=== PATIENT | male | born 1935 | race Caucasian/White ===

== ENCOUNTER → 2018-11-30 08:23 | Outpatient (CLI) | payer MEDICARE, BC, SELFPAY ==
[2018-11-30 08:41] LABS: Blood Urea Nitrogen 9 mg/dL (7-18); Creatinine,Serum 0.85 mg/dL (0.70-1.30); Estimated Glomerular Filt Rate 86 ml/min (>60); GFR (African American) 104 ML/MIN (>60)
--- NOTE | 2018-11-30 08:41 | CT_ITS ---
CT abdomen wo/w con CLINICAL INDICATION: ITS.REASON: ABD PAIN, URINE DISCOLORATION, WGT LOSS ORDERING PHYSICIAN: Darrell Bishop MD PATIENT AGE: 83 years COMPARISON: None TECHNIQUE: Contrast Used:75ml Optiray 350 Oral Contrast: 450ml Redicat and no Axial images obtained with sagittal and coronal reformats. All CT scans at the facility use one or more dose reduction, viz: automated exposure control, ma/kV adjustment per patient size (including targeted exams where dose is matched to indication, i.e. head), or iterative reconstruction technique. FINDINGS: Calcified granulomas present in the right middle lobe. There is a noncalcified nodule in the right lower lobe posteriorly at 7 mm. Chronic changes are present in the lung bases. The liver, spleen, adrenal glands, pancreas, and right kidney has an unremarkable appearance. There is a nonobstructing 4 mm stone in the lower pole the left kidney. Isodense lesion lower pole left kidney at 18 mm consistent with renal cysts. No ureteral calculi. Moderate amount retained colonic feces. No intestinal obstruction or free air. The pelvis is not included in the exam. Degenerative changes are present in the lower thoracic and lumbar spine with prominent osteophytes. 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 CT angiogram suggested for confirmation. IMPRESSION: 1. 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 Suggest CT angiography for further evaluation. Upper 2. Left nephrolithiasis with left renal cyst. 3. 7 mm noncalcified nodule right lower lobe. Suggest 6 month follow-up
== END ==
PROVIDERS: Visit Provider Family Medicine
DX: R10.9 Unspecified abdominal pain (principal); R39.89 Other symptoms and signs involving the genitourinary system; R63.4 Abnormal weight loss
CPT/HCPCS: 36415; 74170; 82565; 84520; Q9967

== ENCOUNTER → 2018-12-13 07:56 | Outpatient (CLI) | payer MEDICARE, BC, SELFPAY ==
[2018-12-13 08:22] LABS: Blood Urea Nitrogen 16 mg/dL (7-18); Creatinine,Serum 0.92 mg/dL (0.70-1.30); Estimated Glomerular Filt Rate 79 ml/min (>60); GFR (African American) 95 ML/MIN (>60)
--- NOTE | 2018-12-13 08:25 | CT_ITS ---
CT angio abdomen CLINICAL INDICATION: Abdominal pain and weight loss, abnormal CT of abdomen follow-up ITS.REASON: MESENTERIC ARTERY STENOSIS ORDERING PHYSICIAN: Darrell Bishop MD PATIENT AGE: 83 years COMPARISON: 11/30/2018 TECHNIQUE: Contrast Used:100ml Optiray 350 Oral Contrast: Axial images obtained with sagittal and coronal reformats. All CT scans at the facility use one or more dose reduction, viz: automated exposure control, ma/kV adjustment per patient size (including targeted exams where dose is matched to indication, i.e. head), or iterative reconstruction technique. FINDINGS: Atheromatous changes involving the abdominal aorta and its branches. There is calcific plaque at the ostium of the celiac arteryCausing approximately 35% stenosis. In addition, there is a high-grade short segment stenosis involving the proximal aspect of the superior mesenteric artery of approximately 70%. No evidence of abdominal aortic aneurysm, aortic stenosis, or common iliac stenosis. There is plaque at the ostium of the right renal artery but no significant stenosis. Left renal artery has an unremarkable appearance. Left renal cyst once again noted. There are degenerative changes in the lumbar spine. IMPRESSION: 1. 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 2. 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
== END ==
PROVIDERS: Visit Provider Family Medicine
DX: K55.1 Chronic vascular disorders of intestine (principal)
CPT/HCPCS: 36415; 74175; 82565; 84520; Q9967

== ENCOUNTER 2019-01-02 09:44 | Observation (INO) ==
[2019-01-02 10:28] LABS: Basophils # 0.1 K/mm3 (0-0.2); Eosinophils # 0.2 K/mm3 (0.0-0.4); Eosinophils % 4.5 % (0.1-12.0); Hematocrit 35.4 % (42.0-52.0); Hemoglobin 11.6 g/dL (14.1-18.0); Lymphocytes # 1.8 K/mm3 (0.7-4.5); Lymphocytes % 36.4 % (10-50); Mean Corpuscular HGB Conc 32.7 g/dL (31.8-35.4); Mean Corpuscular Volume 101.4 fl (80-94); Mean Platelet Volume 8.4 fl (7.4-10.4); Monocytes # 0.6 K/mm3 (0.1-1.0); Monocytes % 11.5 % (1.7-9.3); Neutrophils # 2.3 K/mm3 (1.8-7.8); Neutrophils % 46.7 % (37.0-80.0); Platelet Count 218 K/mm3 (142-424); Red Blood Count 3.49 M/mm3 (4.60-6.20); Red Cell Distribution Width 13.6 % (11.5-17.5)
--- NOTE | 2019-01-02 10:29 | Emergency Department Note ---
ED Disposition Clinical Impression: Mental status change resolved Disposition: Home, Self-Care Condition on Discharge: Good Instructions: DI for Altered Mental Status Additional Instructions: you will be called daysi regarding time of ECHO and Carotid dopplers. No cardiac event seen today on testing. Referrals: Darrell Bishop MD [Primary Care Provider] - Time of Disposition: 11:54 - Critical Care Critical Care Time: No Attestation: On 01/02/19, the high probability of a clinically significant, sudden or life threatening deterioration of the following system(s) required my full and direct attention, intervention and personal management. The time I documented below is in addition to time spent performing reported procedures but includes the following listed in this critical care notation. Medical Decision Making - Medical Records Medical records reviewed: Yes: I reviewed the patient's medical records. - Augie Inquiry Pt receiving controlled substance: No Augie was queried for this patient: No Vital Signs: 01/02/19 09:50 01/02/19 10:15 01/02/19 10:43 Temperature 97.6 F Temperature Source Oral Pulse Rate [Right Radial] 60 52 L 58 L Respiratory Rate 20 18 18 Blood Pressure [Right Arm] 131/61 150/82 H 143/85 H Blood Pressure Mean [Right Arm] 84 104 104 Blood Pressure Source [Right Arm] Automatic Cuff Automatic Cuff Automatic Cuff Blood Pressure Position [Right Arm] Sitting Sitting Sitting 02 Sat by Pulse Oximetry 99 98 97 Oxygen Delivery Method Room Air Room Air Room Air 01/02/19 11:00 01/02/19 11:24 Temperature Temperature Source Pulse Rate [Right Radial] 50 L 50 L Respiratory Rate 16 Blood Pressure [Right Arm] 139/56 L 139/56 L Blood Pressure Mean [Right Arm] 83 83 Blood Pressure Source [Right Arm] Automatic Cuff Automatic Cuff Blood Pressure Position [Right Arm] Sitting Sitting 02 Sat by Pulse Oximetry 96 97 Oxygen Delivery Method Room Air Room Air - Lab Data Lab results reviewed: Yes: I reviewed the patient's lab results. Lab Results 01/02/19 10:10: WBC 5.0, RBC 3.49 L, Hgb 11.6 L, Hct 35.4 L, MCV 101.4 H, MCH 33.1 H, MCHC 32.7, RDW 13.6, Plt Count 218, MPV 8.4, Neut % (Auto) 46.7, Lymph % (Auto) 36.4, [place] % (Auto) 11.5 H, Eos % (Auto) 4.5, Baso % (Auto) 1.0, Neut # (Auto) 2.3, Lymph # (Auto) 1.8, [place] # (Auto) 0.6, Eos # (Auto) 0.2, Baso # (Auto) 0.1 01/02/19 10:10: Sodium 140, Potassium 4.1, Chloride 105, Carbon Dioxide 27, Anion Gap 12.1, BUN 14, Creatinine 0.92, Estimated Creat Clear 53, Estimated GFR 79, Est GFR ( Amer) 95, Glucose 95, Calcium 9.4, Total Bilirubin 0.7, AST 18, ALT 29, Alkaline Phosphatase 70, Troponin I < 0.02, Total Protein 6.7, Albumin 3.4, Globulin 3.3 H, Albumin/Globulin Ratio 1.0 L Result diagrams: 01/02/19 10:10 01/02/19 10:10 - CT Data CT Scan: Head Time Received: 10:[address] Reviewed: Yes: I have viewed the radiologist's interpretation Preliminary Findings: Normal/NAD - ECG Data Tracing #1 ECG initial impression date: 01/02/19 ECG initial impression time: 09:55 ECG normal with no acute: arrhythmias, ischemia, conduction abnormalities, chamber hypertrophy Normal Sinus Rhythm: Yes - Physician Consults Physician Consulted: Marcello Time: 11:51 Reason -: Pt condition Comment/Response: patient has recovered, informed Dr. Armendariz. Will get outpatient carotid dopplers and ECHO daysi, results to Marcello/Dario Medical Decision Narrative: score zero-stroke General Adult HPI - General Chief complaint: Weakness Stated complaint: head pain,dizzy Time Seen by Provider: 01/02/19 10:26 Mode of Arrival: Wheelchair Source of Information: Patient, Spouse, Relative Limitations: No Limitations Description of Symptoms (Recalled from ER Triage Doc. by RN): Pt c/o feeling generally weak all over and states his head "doesnt feel right" pt reports he woke up feeling like this today. Pt reports he woke up approx 0300 today to go to the bathroom and he felt off balance and caught himself on the wall. Pt d enies dizziness, denies pain. - History of Present Illness HPI narrative: woke up not feeling well. Feel 'different in the head". No true headache. No chest pain No focal deficit here but states when he got out of bed he had to steady himself on the wall to ambulate. Patient is a cardiology patient of Dr. Natanael Richard in [place]. Has ?2 stents, says one is to LAD. Less than five years ago, approx 2.5 - Related Data Home Medications Medication Instructions Recorded Confirmed Apixaban [Eliquis 2.5mg tab] 2.5 mg PO BID 01/02/19 01/02/19 Atorvastatin Calcium [Atorvastatin 20 mg PO HS 01/02/19 01/02/19 20mg Tab] Carvedilol [Carvedilol 6.25mg Tab] 6.25 mg PO BID 01/02/19 01/02/19 Clopidogrel Bisulfate [Plavix 75mg 75 mg PO DAILY 01/02/19 01/02/19 Tab] Levothyroxine Sodium 75 mcg PO DAILY 01/02/19 01/02/19 [Levothyroxine 75mcg (0.075mg) Tab] Nitroglycerin [Nitrostat 0.4mg SL 0.4 mg SL NEEDED PRN 01/02/19 01/02/19 Tablet] Omeprazole [Omeprazole 40mg 40 mg PO DAILY 01/02/19 01/02/19 Capsule] Ropinirole HCl 1 mg PO HS 01/02/19 01/02/19 Trazodone HCl 50 mg PO HS 01/02/19 01/02/19 Allergies Allergy/AdvReac Type Severity Reaction Status Date / Time No Known Allergies Allergy Unverified 06/02/17 14:49 [facility] History - Hepatitis A Screen Drug use history?: No High risk sexual behaviors?: No History of sexually transmitted infection?: No Currently employed?: No Childcare worker?: No Do you have indoor plumbing?: Yes Do you have electricity?: Yes Attestation statement:: This patient has been screened for Hepatitis A risk factors. I have reviewed the patient's past medical history: Yes Medical History: Denies:: Diabetes Mellitus Type 1, Diabetes Mellitus Type 2 - Social History Alcohol Intake: never Occupational Status: other ROS Obtained: Yes All systems reviewed & no additional complaints - Constitutional Constitutional: Denies chills, Denies fever(s) - Eyes Eyes: Reports system reviewed and no additional complaints, except as docu - ENT Ears, Nose, Mouth, and Throat: Reports system reviewed and no additional complaints, except as docu, Denies headache(s) - Cardiovascular Cardiovascular: Denies chest pain at rest, Denies dyspnea, Denies dyspnea on exertion, Denies edema - Respiratory Respiratory: No dyspnea, No coughing up blood, No stridor - Gastrointestinal Gastrointestingal: Denies: abdominal pain - Genitourinary Female Genitourinary: Denies dysuria, Denies flank pain - Musculoskeletal Musculoskeletal: Reports muscle aches - Integumentary/Breasts Skin/Breast: Denies rash, Denies skin pain - Neurologic Neurologic: Reports abnormal gait, Denies confusion, Reports unsteadiness, Reports dizziness, Denies numbness, Denies seizure-like activity, Denies syncope, Reports other (resolved) - Hematologic/Lymphatic Henatologic/Lymphatic: Denies easy bleeding, Denies easy bruising - Allergic/Immunologic Allergic/Immunologic: Denies hives, Denies wheezing Physical Exam - General General appearance: alert, in no apparent distress - Head Head exam: atraumatic - Eye Eye exam: Present: normal appearance, PERRL, EOMI - ENT ENT exam: Present: normal exam, normal oropharynx, mucous membranes moist, TM's normal bilaterally, normal external ear exam - Neck Neck exam: Present: other (no carotid bruits) - Respiratory Respiratory exam: Present: normal lung sounds bilaterally. Absent: respiratory distress - Cardiovascular Cardiovascular exam: Present: regular rate, normal rhythm. Absent: JVD - Abdominal Exam Abdominal exam: Present: soft, normal bowel sounds. Absent: distention, tend erness, guarding - Extremities Exam Extremities exam: Present: normal inspection, full ROM, normal capillary refill. Absent: calf tenderness - Back Exam Back exam: Present: normal inspection. Absent: tenderness - Neurological Exam Neurological exam: Present: alert, oriented X3, CN II-XII intact. Absent: motor sensory deficit - Psychiatric Psychiatric exam: Present: normal affect, normal mood. Absent: agitated, anxious - Skin Skin exam: Present: warm, dry, intact - Lymphatic Lymphatic Findings: no adenopathy
[2019-01-02 10:40] LABS: Alanine Aminotransferase 29 U/L (12-78); Albumin Level 3.4 gm/dL (3.4-5.0); Alkaline Phosphatase 70 U/L (46-116); Anion Gap 12.1 mEq/L (5-15); Bilirubin,Total 0.7 mg/dL (0.2-1.0); Blood Urea Nitrogen 14 mg/dL (7-18); Calcium 9.4 mg/dL (8.5-10.1); Carbon Dioxide 27 mmol/L (21.0-32.0); Chloride 105 mmol/L (98-107); Globulin 3.3 gm/dl (1.3-3.2); Glucose 95 mg/dL (74-106); Sodium 140 mmol/L (136-145); Total Protein,Serum 6.7 gm/dL (6.4-8.2)
[2019-01-02 10:41] LABS: Aspartate Amino Transferase 18 U/L (15-37)
--- NOTE | 2019-01-02 14:57 | Pharmacy Consult Notes ---
[facility] Pharmacy VTE Monitoring - Patient Demographics Admission date: 01/02/19 Report Date: 01/02/19 Time: 14:57 Allergies/Adverse Reactions: Patient Allergies No Known Allergies Allergy (Unverified 06/02/17 14:49) Height: 1.78 m Weight: 65.544 kg Patient Problems: Current Active Problems (Updated 01/02/19 @ 12:24 by Natanael Leija MD) Mental status change resolved (Acute) Dizziness (Acute) Anemia (Acute) - VTE Risk Labs: VTE Related Lab Results Hgb 11.6 g/dL (14.1-18.0) L 01/02/19 10:10 Hct 35.4 % (42.0-52.0) L 01/02/19 10:10 Plt Count 218 K/mm3 (142-424) 01/02/19 10:10 BUN 14 mg/dL (7-18) 01/02/19 10:10 Creatinine 0.92 mg/dL (0.70-1.30) 01/02/19 10:10 Estimated Creat Clear 53 mL/min (50-200) 01/02/19 10:10 VTE Score: 2 VTE Risk Level: Very Low Risk - Prophylaxis Types of VTE Prophylaxis: Pharmacological (ELIQUIS BID DOSING ORDERED BY )
[2019-01-03 05:57] LABS: Basophils % 0.5 % (0.1-2.0); Eosinophils # 0.2 K/mm3 (0.0-0.4); Eosinophils % 5.8 % (0.1-12.0); Hematocrit 32.1 % (42.0-52.0); Lymphocytes # 1.6 K/mm3 (0.7-4.5); Lymphocytes % 39.9 % (10-50); Mean Corpuscular HGB Conc 31.9 g/dL (31.8-35.4); Mean Platelet Volume 9.3 fl (7.4-10.4); Monocytes # 0.4 K/mm3 (0.1-1.0); Monocytes % 9.2 % (1.7-9.3); Neutrophils # 1.8 K/mm3 (1.8-7.8); Neutrophils % 44.7 % (37.0-80.0); Platelet Count 188 K/mm3 (142-424); Red Blood Count 3.09 M/mm3 (4.60-6.20); Red Cell Distribution Width 13.7 % (11.5-17.5); White Blood Count 3.9 K/mm3 (4.8-10.8)
[2019-01-03 06:00] LABS: Hemoglobin 10.2 g/dL (14.1-18.0)
[2019-01-03 06:04] LABS: Calcium 8.5 mg/dL (8.5-10.1)
--- NOTE | 2019-01-03 07:08 | H&P/Discharge Summary ---
General - General Admission date:: 01/02/19 Discharge date: 01/03/19 *Admission Date: 01/02/19 *Chief complaint: "I do not feel right" *History of present illness: 83-year-old male with history of coronary artery disease presented to the emergency department yesterday morning after 2 episodes at home where he went to get out of bed and lost his balance and ran into the door facing to the bathroom. He admitted that his head "did not feel right" and he felt kind of tired and weak. He denies having any headache, but simply a funny feeling on the top of his head. When this feeling lasted for several hours he ultimately decided to come to the emergency department at the urging of his . In the ER patient had work-up which revealed nothing. EKG was unremarkable. Labs had no significantly new findings. Initial plan in the emergency department was going to be to discharge the patient home with outpatient follow-up and testing for echocardiogram and carotid Doppler. However patient's raise signi ficant concern about his level of weakness and decision was made to keep the patient overnight for further testing today. In the emergency department prior to admission orthostatics were checked and while the patient was not orthostatic going from a lying to a standing position the patient did appear wobbly on his feet. Patient was admitted and has had no further events. He has been out of bed. This morning he states he feels fine. [facility] History I have reviewed the patient's past medical history: Yes Medical History: Reports:: Coronary Artery Disease, Hypertension Denies:: Cancer, Diabetes Mellitus Type 1, Diabetes Mellitus Type 2, Internal Pacemaker, MRSA *Have you ever received a pneumonia vaccine?: Yes *Have you received a flu vaccine this season?: Yes Other Surgeries: Yes: Coronary Stent. No: Pacemaker Amputation: No Fractures: No - *Social History Educational Level: Attended High School Smoking Status: Never smoker Alcohol Intake: never *Occupational Status:: retired Housing: house Household Members: spouse *Travel in the last 8 weeks: None - Psychiatric History Expresses thoughts of harming self/others: None Suicide Plan Description: No Plan Family Hx:: No significant family history Review of Systems - Constitutional Denies body ache(s) - *Cardiovascular Denies chest pain, Denies chest pain at rest, Denies chest pain with activity - *Respiratory Denies change in phlegm color, Denies chest congestion, Denies cough - *Gastrointestinal Denies abdominal pain, Denies belching, Denies bloating - *Genitourinary Denies difficulty urinating - *Neurologic Reports abnormal walking, Reports unsteadiness, Reports dizziness, Reports other (resolved), Denies confusion, Denies headache(s), Denies numbness, Denies seizure-like activity, Denies fainting Exam Vital signs and Labs for Last 24 Hours: Temp Pulse Resp BP Pulse Ox 98.1 F 72 16 108/53 L 97 01/03/19 04:00 01/03/19 04:00 01/03/19 04:00 01/03/19 04:00 01/03/19 04:00 Laboratory Results - last 24 hr 01/02/19 10:10: WBC 5.0, RBC 3.49 L, Hgb 11.6 L, Hct 35.4 L, MCV 101.4 H, MCH 33.1 H, MCHC 32.7, RDW 13.6, Plt Count 218, MPV 8.4, Neut % (Auto) 46.7, Lymph % (Auto) 36.4, [place] % (Auto) 11.5 H, Eos % (Auto) 4.5, Baso % (Auto) 1.0, Neut # (Auto) 2.3, Lymph # (Auto) 1.8, [place] # (Auto) 0.6, Eos # (Auto) 0.2, Baso # (Auto) 0.1 01/02/19 10:10: Sodium 140, Potassium 4.1, Chloride 105, Carbon Dioxide 27, Anion Gap 12.1, BUN 14, Creatinine 0.92, Estimated Creat Clear 53, Estimated GFR 79, Est GFR ( Amer) 95, Glucose 95, Calcium 9.4, Total Bilirubin 0.7, AST 18, ALT 29, Alkaline Phosphatase 70, Troponin I < 0.02, Total Protein 6.7, Albumin 3.4, Globulin 3.3 H, Albumin/Globulin Ratio 1.0 L 01/03/19 05:26: WBC 3.9 L, RBC 3.09 L, Hgb 10.2 L D, Hct 32.1 L, MCV 104.0 H, MCH 33.1 H, MCHC 31.9, RDW 13.7, Plt Count 188, MPV 9.3, Neut % (Auto) 44.7, Lymph % (Auto) 39.9, [place] % (Auto) 9.2, Eos % (Auto) 5.8, Baso % (Auto) 0.5, Neut # (Auto) 1.8, Lymph # (Auto) 1.6, [place] # (Auto) 0.4, Eos # (Auto) 0.2, Baso # (Auto) 0.0 01/03/19 05:26: Sodium 143, Potassium 4.0, Chloride 111 H, Carbon Dioxide 27, Anion Gap 9.0, BUN 9 D, Creatinine 0.82, Estimated Creat Clear 53, Estimated GFR 90, Est GFR ( Amer) 109, Glucose 96, Calcium 8.5 I & O for Last 24 hours: Intake & Output 12/31/18 01/01/19 01/02/19 01/03/19 11:59 11:59 11:59 11:59 Intake Total 3686 / 3686 Output Total 1275 / 1275 Balance 2411 / 2411 Weight 145 lb 150 lb 5 oz - Constitutional no acute distress - *Routine HEENT Exam Head: Present: normocephalic Eye: Present: EOMI, PERRL ENT: Present: mucous membranes moist - *Routine Neck Exam Present: supple. Absent: JVD, carotid bruit - *Routine Respiratory Exam Present: CTA bilaterally - *Routine Cardiovascular Exam Present: RRR, Normal S1, Normal S2 - *Routine Abdominal Exam Present: soft - *Routine Extremities Exam Absent: cyanosis, clubbing, edema Hospital Course Hospital Course: Patient was admitted for observation. He did well on IV fluids of normal saline at 200 mL's per hour. On the morning of January 03 patient felt well. Patient underwent echocardiogram and carotid Doppler. At the time of this dictation the echocardiogram showed normal ejection fraction. Patient felt well. Once testing was completed patient was discharged to home. Patient does have a flame hardening machine setter in [place] and he is not believes it is about time for him to see his flame hardening machine setter. I did point out to the patient that his blood pressures had a wide range with some blood pressures showing systolics in the low 100s but others having systolics as high as 160. He will need to continue to monitor his blood pressure especially if he feels weak. I did explain to his that there were no significant findings here in the hospital to indicate why he had this spell of weakness. If he was dehydrated it did not reveal itself and his labs and by the time I saw the patient he was adequately hydrated after receiving fluids. Patient underwent bilateral carotid artery doppler and echocardiogram. Carotids showed stable disease of the Right ICA with progression of mild disease on the left. Echocardiogram showed normal ejection fraction with increased right ventricular pressure. Once testing was completed and patient was feeling well he was discharged home Results Labs on day of discharge: Labs from last 24 hours 01/03/19 01/03/19 01/02/19 05:26 05:26 10:10 WBC 3.9 L RBC 3.09 L Hgb 10.2 L D Hct 32.1 L MCV 104.0 H MCH 33.1 H MCHC 31.9 RDW 13.7 Plt Count 188 MPV 9.3 Neut % (Auto) 44.7 Lymph % (Auto) 39.9 [place] % (Auto) 9.2 Eos % (Auto) 5.8 Baso % (Auto) 0.5 Neut # (Auto) 1.8 Lymph # (Auto) 1.6 [place] # (Auto) 0.4 Eos # (Auto) 0.2 Baso # (Auto) 0.0 Sodium 143 140 Potassium 4.0 4.1 Chloride 111 H 105 Carbon Dioxide 27 27 Anion Gap 9.0 12.1 BUN 9 D 14 Creatinine 0.82 0.92 Estimated Creat Clear 53 53 Estimated GFR 90 79 Est GFR ( Amer) 109 95 Glucose 96 95 Calcium 8.5 9.4 Total Bilirubin 0.7 AST 18 ALT 29 Alkaline Phosphatase 70 Troponin I < 0.02 Total Protein 6.7 Albumin 3.4 Globulin 3.3 H Albumin/Globulin Ratio 1.0 L 01/02/19 10:10 WBC 5.0 RBC 3.49 L Hgb 11.6 L Hct 35.4 L MCV 101.4 H MCH 33.1 H MCHC 32.7 RDW 13.6 Plt Count 218 MPV 8.4 Neut % (Auto) 46.7 Lymph % (Auto) 36.4 [place] % (Auto) 11.5 H Eos % (Auto) 4.5 Baso % (Auto) 1.0 Neut # (Auto) 2.3 Lymph # (Auto) 1.8 [place] # (Auto) 0.6 Eos # (Auto) 0.2 Baso # (Auto) 0.1 Sodium Potassium Chloride Carbon Dioxide Anion Gap BUN Creatinine Estimated Creat Clear Estimated GFR Est GFR ( Amer) Glucose Calcium Total Bilirubin AST ALT Alkaline Phosphatase Troponin I Total Protein Albumin Globulin Albumin/Globulin Ratio DS: Diagnosis - Discharge Diagnosis (1) Weakness Status: Acute (2) Coronary artery disease Status: Acute Discharge Plan - Patient Discharge Instructions ACTIVITY: Continue current activity DIET: continue same diet Patient Instructions: DI for Orthostatic Hypotension, DI for Muscle Weakness, DI for Altered Mental Status - Follow up Plan Follow up with: Get Armendariz MD [Staff Physician] - 01/10/19 10:15 am Disposition: Home, Self-Usp Medications: Home Medications Medication Instructions Recorded Confirmed Type Apixaban [Eliquis 2.5mg tab] 2.5 mg PO BID 01/02/19 01/02/19 History Atorvastatin Calcium [Atorvastatin 20 mg PO HS 01/02/19 01/02/19 History 20mg Tab] Carvedilol [Carvedilol 6.25mg Tab] 6.25 mg PO BID 01/02/19 01/02/19 History Clopidogrel Bisulfate [Plavix 75mg 75 mg PO DAILY 01/02/19 01/02/19 History Tab] Levothyroxine Sodium 75 mcg PO DAILY 01/02/19 01/02/19 History [Levothyroxine 75mcg (0.075mg) Tab] Nitroglycerin [Nitrostat 0.4mg SL 0.4 mg SL NEEDED PRN 01/02/19 01/02/19 History Tablet] Omeprazole [Omeprazole 40mg 40 mg PO DAILY 01/02/19 01/02/19 History Capsule] Ropinirole HCl 1 mg PO HS 01/02/19 01/02/19 History Trazodone HCl 50 mg PO HS 01/02/19 01/02/19 History Prescriptions/Medication Reconciliation: Continued Levothyroxine Sodium [Levothyroxine 75mcg (0.075mg) Tab] 75 mcg PO DAILY Atorvastatin Calcium [Atorvastatin 20mg Tab] 20 mg PO HS Apixaban [Eliquis 2.5mg tab] 2.5 mg PO BID Omeprazole [Omeprazole 40mg Capsule] 40 mg PO DAILY Clopidogrel Bisulfate [Plavix 75mg Tab] 75 mg PO DAILY Ropinirole HCl 1 mg PO HS Nitroglycerin [Nitrostat 0.4mg SL Tablet] 0.4 mg SL NEEDED PRN PRN Reason: Chest Pain Carvedilol [Carvedilol 6.25mg Tab] 6.25 mg PO BID Trazodone HCl 50 mg PO HS
--- NOTE | 2019-01-03 09:03 | Carotid Imaging Report ---
"Cerebrovascular Exam Indications: 780.4 Dizziness and giddiness. IMPRESSIONS 1. The bilateral vertebral arteries are patent with normal antegrade flow. 2. 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 No change from the study of 21-Apr-2016. 3. Study suggests 20-49% stenosis involving the left internal carotid artery. Disease progression from the study of 21-Apr-2016. History: Coronary artery disease. Carotid duplex study. Complete study and Doppler flow study including spectral analysis, color and peralta scale imaging. Height: Height: 182.9cm. Height: 72in. Weight: Weight: 65.8kg. Weight: 144.7lb. Body mass index: BMI: 19.7kg/m^2. Body surface area: BSA: 1.82m^2. Location: Bedside. Patient status: Inpatient. Tables: Arterial flow: + +--------+--------+ |Location |V sys |V ed | + +--------+--------+ |Right CCA - proximal|76.4cm/s|11cm/s | + +--------+--------+ |Right CCA - distal |124cm/s |19cm/s | + +--------+--------+ |Right ECA |178cm/s |12cm/s | + +--------+--------+ |Right ICA - proximal|145cm/s |13.9cm/s| + +--------+--------+ |Right ICA - mid |166cm/s |30.6cm/s| + +--------+--------+ |Right ICA - distal |130cm/s |17.6cm/s| + +--------+--------+ |Right vertebral |72.3cm/s|10.2cm/s| + +--------+--------+ |Left CCA - proximal |106cm/s |17.6cm/s| + +--------+--------+ |Left CCA - distal |111cm/s |19.5cm/s| + +--------+--------+ |Left ECA |123cm/s |8.5cm/s | + +--------+--------+ |Left ICA - proximal |79.9cm/s|17cm/s | + +--------+--------+ |Left ICA - mid |88.4cm/s|19.1cm/s| + +--------+--------+ |Left ICA - distal |85.5cm/s|17cm/s | + +--------+--------+ |Left vertebral |49.5cm/s|10.4cm/s| + +--------+--------+ Velocity ratios: + + + + + + | |Right, V sys|Right, V ed|Left, V sys|Left, V ed| + + + + + + |Max ICA/dist CCA|1.34 |1.61 |0.8 |0.98 | + + + + + + (Report amended ) Electronically signed by: Daniel Gomez [id number]"
--- NOTE | 2019-01-03 20:48 | Cardiology Report ---
PROCEDURE: 2-D M-mode and color Doppler study INDICATIONS FOR THE TEST: Chest pain COPD Heart Murmur Tobacco Smoking Palpitations Fatigue Syncope Edema HypertensionXDiabetes Mellitus Rheumatic Fever SOB CHERRY Obesity Hyperlipidemia Family History HD Additional History MENTAL STATUS CHANGE,NEAR SYNCOPE,CAD APICAL VIEWS OFF AXIS PATIENT INFORMATION HEIGHT: 72 WEIGHT:145 GENDER: Male B/P:143/85 2-D/M-MODE INTERPRETATION: 2-D MEASUREMENTS OBSERVED VALUES IN CMS Right Ventricular Dimension (RVDd) 1.6 Interventricular Septum (Thickness)(IVsd) 1.0 Left Ventricular Internal Dimensions(LVIDd) 5.4 Left Ventricular Posterior Wall (Thickness)(LVPWd) .9 Aortic Root 3.4 Aortic Cusp Separation 1.8 Left Atrial Dimensions (LAD) 3.8 2D 1. Left atrium is mildly enlarged, left ventricle is normal size, mild concentric left ventricular hypertrophy, visually estimated ejection with no regional wall motion abnormality. Endocardial surfaces are poorly present. 2. The right atrium and right ventricle is mildly enlarged with normal contractility. 3. The aortic valve is minimally thickened and fibrosed. 4. The mitral and tricuspid valve are grossly normal. 5. The pulmonic valve is poorly visualized. 6. No significant pericardial effusion noted. DOPPLER INTERROGATION: Doppler interrogation is suboptimal, there is mild mitral and tricuspid regurgitation. Diastolic parameters are inconclusive. There is mild tricuspid regurgitation noted, calculated right ventricular systolic pressure is 51 mmHg consistent with moderate pulmonary hypertension. CONCLUSION: 1. Technically difficult study because of the patient's factor and poor acoustic windows 2. Normal left ventricular size, preserved left ventricular systolic function, visually estimated ejection fraction 55% with no regional wall motion abnormality. Diastolic parameters are suboptimal. 3. Mild mitral and tricuspid regurgitation, calculated right ventricular systolic pressure is 51 mmHg moderate pulmonary hypertension. 4. No significant pericardial effusion noted.
== END 2019-01-03 11:59 | disposition home or self-care (01) ==
LOC: ER 09:44 → 2ND 09:44
PROVIDERS: ADMIT Family Medicine; ATTEND Family Medicine
DX: Z79.899 Other long term (current) drug therapy; I25.10 Atherosclerotic heart disease of native coronary artery without angina pectoris; I10 Essential (primary) hypertension; R53.1 Weakness; R41.82 Altered mental status, unspecified
CPT/HCPCS: 36415; 70450; 71010; 71045; 80048; 80053; 84484; 85025; 93005; 93306; 93880; 99284; G0378

== ENCOUNTER → 2019-06-16 13:32 | Outpatient (CLI) | payer MEDICARE, BC, SELFPAY ==
--- NOTE | 2019-06-16 13:34 | CT_ITS ---
PROCEDURE: CT CHEST WO CON CLINICAL INDICATION: LUNG NODULE Follow-up lung nodule COMPARISON: ABDWW CT abdomen wo/w con from 11/30/[address] angio abdomen from 12/13/2018 TECHNIQUE: Axial images obtained with sagittal and coronal reformats. All CT scans at the facility use one or more dose reduction, viz: automated exposure control, ma/kV adjustment per patient size (including targeted exams where dose is matched to indication, i.e. head), or iterative reconstruction technique. FINDINGS: There are calcified nodes in the mediastinum. Coronary artery calcifications and/or stents are present. Normal heart size. Calcified granuloma is present in the right middle lobe. There are scattered fibrotic changes. Previously noted nodular opacity in the right lung base posterior medially is not apparent. There are fibrotic changes in this region. No suspicious pulmonary nodules are evident. No central obstructing lesion, consolidation, or mass or effusion. There are degenerative changes in the thoracic spine. IMPRESSION: No acute finding. No suspicious pulmonary nodules evident. Fibrotic changes are present in the right lung base posterior medially. Previously noted nodular opacity in this region is no longer apparent. Dictated by: Bentley John MD 06/17/2019 09:53 Electronically signed by Bentley John MD in [place] 06/17/2019 09:53
== END ==
PROVIDERS: PCP Family Medicine; Visit Provider Family Medicine
DX: R91.1 Solitary pulmonary nodule (principal)
CPT/HCPCS: 71250

== ENCOUNTER → 2019-09-23 13:19 | Outpatient (CLI) | payer MEDICARE, BC, SELFPAY ==
--- NOTE | 2019-09-23 13:21 | MR_ITS ---
PROCEDURE: MR CERVICAL SPINE WO CON CLINICAL INDICATION: MYELOPATHY, SPINAL STENOSIS Bilateral arm pain tingling numbness and shoulder pain with weakness COMPARISON: CTAN CTA-NECK from 04/22/2016 TECHNIQUE: Standard multiplanar multiecho sequences are performed without contrast. 3-D MIP and myelographic images are also rendered and reviewed FINDINGS: Exam is moderately limited due to mild motion artifact. The there is good alignment. The craniocervical junction has an unremarkable appearance. C2-C3: Mild bilateral foraminal narrowing from facet hypertrophy. There is mild bulging disc C3-C4: There is a broad based central disc protrusion with bulging disc with severe canal stenosis with canal measuring approximately 5-6 mm. There is marked impingement and compression upon the spinal cord with slight increased T2 signal involving the cord at the C4 level. C4-C5: Bulging disc with right-sided facet hypertrophic change with severe right and moderate to severe left foraminal narrowing. The bulging disc is slightly eccentric toward the right. C5-C6: Degenerate disc disease with bulging disc with a small right paracentral disc protrusion causing mild impingement upon the anterior aspect of the cord slightly toward the right. There is moderate bilateral foraminal narrowing. C6-C7: Degenerate disc disease with a broad based bulging disc along with facet hypertrophic change with canal stenosis of 8 mm with moderate bilateral foraminal narrowing. There is slight increased T2 signal of the cord at this level. There is mild impingement upon the anterior aspect of the cord from the bulging disc and mild posterior impingement from the facet and lamina hypertrophy. Type 2 endplate changes are present C7-T1: Mild anterolisthesis of C7. There is degenerative disc disease at T2-T3 and T3-T4 with bulging disc. IMPRESSION: 1. There is multilevel cervical spondylosis with multilevel canal stenosis. This is most severe at the C3-C4 level with severe canal stenosis and anterior and posterior impingement upon the cord with narrowing of the cord at this level and mild increased T2 signal of the cord. Please see above for detailed description at each level. Broad-based central disc protrusion with bulging disc is present at C3-C4. 2. C3-C4: There is a broad based central disc protrusion with bulging disc with severe canal stenosis with canal measuring approximately 5-6 mm. There is marked impingement and compression upon the spinal cord with slight increased T2 signal involving the cord at the C4 level. 3. C4-C5: Bulging disc with right-sided facet hypertrophic change with severe right and moderate to severe left foraminal narrowing. The bulging disc is slightly eccentric toward the right. 4. C5-C6: Degenerate disc disease with bulging disc with a small right paracentral disc protrusion causing mild impingement upon the anterior aspect of the cord slightly toward the right. There is moderate bilateral foraminal narrowing. 5. C6-C7: Degenerate disc disease with a broad based bulging disc along with facet hypertrophic change with canal stenosis of 8 mm with moderate bilateral foraminal narrowing. There is slight increased T2 signal of the cord at this level. There is mild impingement upon the anterior aspect of the cord from the bulging disc and mild posterior impingement from the facet and lamina hypertrophy. Type 2 endplate changes are present Dictated by: Bentley John MD 09/23/2019 16:35 Electronically signed by Bentley John MD in [place] 09/23/2019 16:35
== END ==
PROVIDERS: PCP Family Medicine; Visit Provider Family Medicine
DX: M48.02 Spinal stenosis, cervical region (principal); G99.2 Myelopathy in diseases classified elsewhere
CPT/HCPCS: 72141; 76376

== ENCOUNTER → 2021-01-17 15:53 | Outpatient (CLI) | payer MEDICARE, BC, SELFPAY ==
--- NOTE | 2021-01-17 16:01 | XR_ITS ---
PROCEDURE: XR CHEST 2V CLINICAL HISTORY: EDEMA,UNSPECIFIED TYPE COMPARISON: CR CXR1 CHEST-PORTABLE from 12/16/2014 CR CXR CHEST(2 VIEWS-NOT PORTABLE) from 04/21/2016 CR CXR1 CHEST-PORTABLE from 10/25/[address] CHEST WO CON from 06/16/2019 FINDINGS: The cardiomediastinal silhouette and pulmonary vascularity are within normal limits. Calcified granuloma is present in the right middle lobe. The mild atelectatic changes are present in the left lung base. Degenerative changes thoracic. Mild pectus excavatum IMPRESSION: Mild left basilar atelectasis Dictated by: Bentley John MD 01/17/2021 17:30 Bentley John MD in [place] 01/17/2021 17:30
[2021-01-17 19:12] LABS: Chloride 104 mmol/L (98-107); Potassium 4.1 mmoL/L (3.5-5.1); Sodium 139 mmol/L (136-145)
[2021-01-17 19:15] LABS: Alanine Aminotransferase 25 U/L (12-78); Albumin Level 4.1 g/dl (3.5-5.0); Albumin/Globulin Ratio 1.5 (1.1-1.8); Alkaline Phosphatase 84 U/L (38-126); Anion Gap 13.1 mEq/L (5-15); Aspartate Amino Transferase 36 U/L (17-59); Bilirubin,Total 0.7 mg/dl (0.2-1.3); Blood Urea Nitrogen 19 mg/dl (9-20); Calcium 9.2 mg/dl (8.4-10.2); Carbon Dioxide 26 mmol/L (22.0-30.0); Estimated Glomerular Filt Rate 71 ml/min (>60); GFR (African American) 86 ML/MIN (>60); Globulin 2.7 g/dL (1.3-3.2); Glucose 92 mg/dl (74-100); Total Protein,Serum 6.8 g/dl (6.3-8.2)
[2021-01-17 19:27] LABS: NT Pro Brain Natriuretic Pep. 264 pg/mL (0-450)
== END ==
PROVIDERS: PCP Family Medicine; Visit Provider Nurse Practitioner Family
DX: R60.9 Edema, unspecified (principal); R06.09 Other forms of dyspnea
CPT/HCPCS: 36415; 71046; 80053; 83880; 84439; 84443

== ENCOUNTER → 2021-04-17 12:03 | Outpatient (CLI) | payer MEDICARE, BC, SELFPAY | PROVIDERS: Visit Provider Internal Medicine Infectious Disease | DX: D72.18 Eosinophilia in diseases classified elsewhere (principal); T50.995A Adverse effect of other drugs, medicaments and biological substances, initial encounter; R19.7 Diarrhea, unspecified | CPT/HCPCS: 87177 ==

== ENCOUNTER → 2021-05-14 17:02 | Outpatient (CLI) | payer MEDICARE, BC, SELFPAY ==
--- NOTE | 2021-05-14 17:06 | MR_ITS ---
PROCEDURE INFORMATION: Exam: MR Head Without and With Contrast Exam date and time: 05/14/2021 5:06 PM Age: 85 years old Clinical indication: Pain; Headache; Additional info: CVA TECHNIQUE: Imaging protocol: MR of the head without and with intravenous contrast. Contrast material: ISOVUE; Contrast volume: 15 ml; Contrast route: IV; COMPARISON: CT HEAD/BRAIN WO CON 09/17/2019 1:16 PM FINDINGS: Age-related volume loss. Major vascular flow voids at the skull base are preserved. No extra-axial fluid collection. No hydrocephalus. No midline shift or intracranial mass effect. Mild nonspecific white matter gliosis, probable chronic microvascular ischemia. No cerebral edema. No diffusion restriction. No pathologic intracranial enhancement. Minimal paranasal sinus disease. Moderate to large right and small left mastoid effusions. IMPRESSION: No acute intracranial abnormality.
== END ==
PROVIDERS: PCP Family Medicine; Visit Provider Family Medicine
DX: R51.9 Headache, unspecified (principal); I63.9 Cerebral infarction, unspecified
CPT/HCPCS: 70553; A9576

== ENCOUNTER 2021-10-01 18:20 | Observation (INO) | payer MEDICARE, BC, SELFPAY ==
[2021-10-01] VITALS (14 sets, daily range): BP systolic 129–183; BP diastolic 63–96; PULSE 61–99; RESP 14–20; TEMP 36.6–36.7; O2SAT 94–100; BMI 21.4; BMI 20.7
--- NOTE | 2021-10-01 18:23 | XR_ITS ---
PROCEDURE INFORMATION: Exam: XR Chest Exam date and time: 10/01/2021 6:32 PM Age: 86 years old Clinical indication: Pain; Chest pressure; Additional info: Chest pain TECHNIQUE: Imaging protocol: XR of the chest. Views: 1 view. COMPARISON: CR XR CHEST 2V 01/17/2021 4:03 PM FINDINGS: Lungs: A calcified granuloma is again demonstrated in the right middle lobe. Parenchymal scarring versus subsegmental atelectasis again demonstrated at the left lung base. Pleural spaces: Unremarkable. No pleural effusion. No pneumothorax. Heart/Mediastinum: Unremarkable. No cardiomegaly. Bones/joints: Unremarkable. IMPRESSION: 1. No evidence of acute cardiopulmonary disease. 2. Persistent subsegmental atelectasis left lung base. Findings stable. 3. Evidence of prior granulomatous disease.
--- NOTE | 2021-10-01 18:23 | ECG_ITS ---
APPROVED REPORT Exam: Resting ECG HR:67 bpm ECG Measurements Heart Rate 67 AXES MD 135 P 60 QRSd 76 QRS 85 QT 389 T 72 QTc 404 Conclusion SINUS RHYTHM WITH MARKED SINUS ARRHYTHMIA POSSIBLE RIGHT VENTRICULAR CONDUCTION DELAY [RSR (QR) IN V1/V2] NONSPECIFIC T-WAVE ABNORMALITY BORDERLINE ECG UNCONFIRMED REPORT Electronically signed by : Get Garza MD 10/02/2021 10:11:03
--- NOTE | 2021-10-01 18:23 | HMH.EDGENADL ---
ED Disposition Clinical Impression: Chest pain Qualifiers: Chest pain type: unspecified Qualified Code(s): R07.9 - Chest pain, unspecified Hypertension Qualifiers: Hypertension type: unspecified Qualified Code(s): I10 - Essential (primary) hypertension Coronary artery disease Qualifiers: Coronary Disease-Associated Artery/Lesion type: [place] artery [place] vs. transplanted heart: [place] heart Associated angina: with unstable angina Qualified Code(s): I25.110 - Atherosclerotic heart disease of [place] coronary artery with unstable angina pectoris Disposition: Admitted as Observation Condition on Discharge: Fair Referrals: Darrell Bishop MD [Primary Care Provider] - Time of Disposition: 19:08 - Critical Care Critical Care Time: No Attestation: On , the high probability of a clinically significant, sudden or life threatening deterioration of the following system(s) required my full and direct attention, intervention and personal management. The time I documented below is in addition to time spent performing reported procedures but includes the following listed in this critical care notation. Medical Decision Making - Medical Records Medical records reviewed: Yes: I reviewed the patient's medical records. - Augie Inquiry Pt receiving controlled substance: No Vital Signs: 10/01/21 18:20 10/01/21 18:30 10/01/21 19:00 Temperature 98.0 F Temperature Source Oral Pulse Rate 83 68 Pulse Rate [Apical] 90 Respiratory Rate 20 18 14 Blood Pressure 145/79 H 160/76 H Blood Pressure [Right Arm] 183/96 H Blood Pressure Mean 105 Blood Pressure Mean [Right Arm] 125 Blood Pressure Source [Right Arm] Automatic Cuff Blood Pressure Position [Right Arm] Sitting 02 Sat by Pulse Oximetry 99 99 99 Oxygen Delivery Method Room Air 10/01/21 19:30 10/01/21 19:52 10/01/21 19:58 Temperature Temperature Source Pulse Rate 98 H 74 82 Pulse Rate [Apical] Respiratory Rate 14 20 Blood Pressure 159/69 H 169/85 H 169/85 H Blood Pressure [Right Arm] Blood Pressure Mean 99 Blood Pressure Mean [Right Arm] Blood Pressure Source [Right Arm] Blood Pressure Position [Right Arm] 02 Sat by Pulse Oximetry 100 100 94 L Oxygen Delivery Method Room Air Room Air - Lab Data Lab Results 10/01/21 18:22: WBC 5.4, RBC 3.28 L, Hgb 12.5 L, Hct 38.3 L, MCV 116.7 H, MCH 38.1 H, MCHC 32.6, RDW 13.5, Plt Count 346, MPV 10.5 H, Neut % (Auto) 42.7, Lymph % (Auto) 41.4, Burke % (Auto) 10.7 H, Eos % (Auto) 2.6, Baso % (Auto) 2.6 H, Neut # (Auto) 2.3, Lymph # (Auto) 2.2, Burke # (Auto) 0.6, Eos # (Auto) 0.1, Baso # (Auto) 0.1 10/01/21 18:22: Sodium 141, Potassium 3.4 L, Chloride 109 H, Carbon Dioxide 25, Anion Gap 10.4, BUN 17, Creatinine 0.90, Estimated Creat Clear 55, Estimated GFR 80, Est GFR ( Amer) 97, Glucose 118 H, Calcium 9.6, Total Bilirubin 0.6, AST 30, ALT 31, Alkaline Phosphatase 61, Troponin I < 0.01, Total Protein 7.2, Albumin 4.4, Globulin 2.8, Albumin/Globulin Ratio 1.6 10/01/21 19:17: SARS-CoV-2 (PCR) Not detected, Influenza A Untype (PCR) Not detected, Influenza Type B (PCR) Not detected Result diagrams: 10/01/21 18:22 10/01/21 18:22 Orders (Tests/Meds): ED MEDICATIONS Discontinued Medications Generic Name Dose Route Start Last Admin Trade Name Freq PRN Reason Stop Dose Admin Nitroglycerin 0.4 mg 10/01/21 19:48 10/01/21 19:53 Nitroglycerin 0.4mg Sl Tablet SL 10/01/21 19:49 1 tab ONCE ONE Administration ORDERS Category Date Time Status Troponin I Q3H Lab 10/01/21 21:30 Ordered Troponin I Q3H Lab 10/02/21 00:30 Ordered ECG Request by /Nia Stat Y 10/01/21 18:23 Ordered EKG Request [ECG Request by /Nia] Stat Y 10/01/21 19:49 Ordered - ECG Data Tracing #1 Sinus rhythm with ventricular rate of 87 bpm. QRS 72, QTc 403. No ST segment elevation. No arrhythmia. - BLAKE Score for Non-Stemi Age of Patient: 80-89 years old Heart Rate: 90-109 bp
[2021-10-01 18:31] LABS: Basophils # 0.1 K/mm3 (0-0.2); Basophils % 2.6 % (0.1-2.0); Eosinophils # 0.1 K/mm3 (0.0-0.4); Eosinophils % 2.6 % (0.1-12.0); Hematocrit 38.3 % (42.0-52.0); Hemoglobin 12.5 g/dL (14.1-18.0); Lymphocytes # 2.2 K/mm3 (0.7-4.5); Lymphocytes % 41.4 % (10-50); Mean Corpuscular HGB Conc 32.6 g/dL (31.8-35.4); Mean Corpuscular Hemoglobin 38.1 pg (27.0-31.2); Mean Corpuscular Volume 116.7 fl (80-94); Mean Platelet Volume 10.5 fl (7.4-10.4); Monocytes # 0.6 K/mm3 (0.1-1.0); Monocytes % 10.7 % (1.7-9.3); Neutrophils # 2.3 K/mm3 (1.8-7.8); Neutrophils % 42.7 % (37.0-80.0); Platelet Count 346 K/mm3 (142-424); Red Blood Count 3.28 M/mm3 (4.60-6.20); Red Cell Distribution Width 13.5 % (11.5-17.5); White Blood Count 5.4 K/mm3 (4.8-10.8)
--- NOTE | 2021-10-01 18:34 | PC.NURSE ---
pt takes eliquis daily, per ER MD pt will not be ordered aspirin per chest pain protocol at this time.
--- NOTE | 2021-10-01 18:38 | PC.NURSE ---
was going to change cmp to BMP per chest pain protocol order set, per lab they are already running the cmp. no change in orders
[2021-10-01 18:46] LABS: Alanine Aminotransferase 31 U/L (12-78); Albumin Level 4.4 g/dl (3.5-5.0); Albumin/Globulin Ratio 1.6 (1.1-1.8); Alkaline Phosphatase 61 U/L (38-126); Anion Gap 10.4 mEq/L (5-15); Aspartate Amino Transferase 30 U/L (17-59); Bilirubin,Total 0.6 mg/dl (0.2-1.3); Blood Urea Nitrogen 17 mg/dl (9-20); Calcium 9.6 mg/dl (8.4-10.2); Carbon Dioxide 25 mmol/L (22.0-30.0); Chloride 109 mmol/L (98-107); Creatinine Clearance Estimated 55 mL/min (50-200); Estimated Glomerular Filt Rate 80 ml/min (>60); GFR (African American) 97 ML/MIN (>60); Globulin 2.8 g/dL (1.3-3.2); Glucose 118 mg/dl (74-100); Potassium 3.4 mmoL/L (3.5-5.1); Sodium 141 mmol/L (136-145); Total Protein,Serum 7.2 g/dl (6.3-8.2)
[2021-10-01 18:58] LABS: Troponin I < 0.01 ng/ml (0.00-0.034)
[2021-10-01 19:21] LABS: Coronavirus 19, PCR Not Detected (NotDetected); Influenza A, PCR Not Detected (NotDetected); Influenza B, PCR Not Detected (NotDetected)
--- NOTE | 2021-10-01 19:41 | PC.NURSE ---
PT REQUEST TO SPEAK WITH MD IN REGARDS TO LAB RESULTS AND POSSIBILITY OF ADMIT.
--- NOTE | 2021-10-01 19:49 | ECG_ITS ---
APPROVED REPORT Exam: Resting ECG HR:95 bpm ECG Measurements Heart Rate 95 AXES MA 137 P 67 QRSd 71 QRS 88 QT 364 T 69 QTc 417 Conclusion SINUS RHYTHM WITH OCCASIONAL SUPRAVENTRICULAR PREMATURE COMPLEXES POSSIBLE RIGHT VENTRICULAR CONDUCTION DELAY [RSR (QR) IN V1/V2] BORDERLINE ECG UNCONFIRMED REPORT Electronically signed by : Get Garza MD 10/03/2021 11:50:24
--- NOTE | 2021-10-01 19:57 | PC.NURSE ---
ER speaking with family
--- NOTE | 2021-10-01 19:57 | PC.NURSE ---
PT MADE AWARE OF PLAN TO ADMIT.
--- NOTE | 2021-10-01 20:14 | PC.NURSE ---
PT REPORTS PAIN HAS IMPROVED. VS 140/90.
--- NOTE | 2021-10-01 20:35 | PC.NURSE ---
Patient admitted to 210.
[2021-10-01 21:02] LABS: Troponin I < 0.01 ng/ml (0.00-0.034)
--- NOTE | 2021-10-01 22:42 | PC.NURSE ---
Report called to Maria E WYNNE
--- NOTE | 2021-10-01 22:58 | PC.NURSE ---
PT ARRIVED TO FLOOR VIA W/C FROM ED W/STAFF @ [id number]
[2021-10-02] VITALS (21 sets, daily range): BP systolic 84–149; BP diastolic 56–85; PULSE 62–93; RESP 13–20; TEMP 36.2–37.1; O2SAT 95–100
--- NOTE | 2021-10-02 | IR_ITS ---
APPROVED REPORT Patient Location: Inpatient PROCEDURES Left heart catheterization Left ventriculogram Selective coronary angiogram INDICATION Acute coronary artery syndrome, High pretest likelihood for coronary disease Informed consent was obtained prior to the procedure. COMPLICATIONS None Estimated Blood Loss: Less than 10 mls TECHNIQUE One percent lidocaine used to anesthetize the right anterior aspect of the wrist. The right radial artery was accessed via the Seldinger technique. A 6 German sheath was placed in the right radial artery. 2.5 mg of verapamil, 800 mcg of nitroglycerin, 1mg Lidocaine and 5000 U Heparin were given through the arterial sheath. The papa catheter was also used to perform left heart catheterization, left ventriculogram and selective coronary angiogram. At the end of the procedure the sheath was removed good hemostasis was achieved using Traclet band, patient was transferred to the postop holding area in stable condition. ANGIOGRAPHIC RESULTS The left main artery Normal The left anterior descending artery Mild 10% proximal mid vessel luminal irregularities The circumflex artery Nondominant and normal The right coronary artery Dominant with proximal 40% stenosis and additional mid vessel 40 to 50% stenosis with additional distal 40% stenosis The CAGE ventriculogram reveals Hyperdynamic 75% The left ventricular end-diastolic pressure 10 mmHg IMPRESSION Mild to moderate coronary disease in the right coronary artery which is unlikely to be producing angina Hyperdynamic ventricle Normal left ventricular pressure PLAN 1. Continue medical management 2. Evaluation of noncardiac chest pain Electronically signed by : Rodney Alvarez MD 10/02/2021 14:24:26
[2021-10-02 00:14] LABS: Troponin I < 0.01 ng/ml (0.00-0.034)
[2021-10-02 07:13] LABS: Chloride 111 mmol/L (98-107); Potassium 3.8 mmoL/L (3.5-5.1); Sodium 140 mmol/L (136-145)
[2021-10-02 07:16] LABS: Blood Urea Nitrogen 17 mg/dl (9-20); Creatinine Clearance Estimated 53 mL/min (50-200); Estimated Glomerular Filt Rate 107 ml/min (>60); GFR (African American) 130 ML/MIN (>60)
[2021-10-02 07:17] LABS: Anion Gap 9.8 mEq/L (5-15); Calcium 8.6 mg/dl (8.4-10.2); Carbon Dioxide 23 mmol/L (22.0-30.0); Glucose 86 mg/dl (74-100)
[2021-10-02 07:18] LABS: Basophils # 0.1 K/mm3 (0-0.2); Eosinophils # 0.1 K/mm3 (0.0-0.4); Mean Corpuscular Hemoglobin 37.9 pg (27.0-31.2); Monocytes # 0.3 K/mm3 (0.1-1.0); Neutrophils # 1.5 K/mm3 (1.8-7.8)
--- NOTE | 2021-10-02 07:21 | P.CONPHA_ITS ---
[facility] Pharmacy VTE Monitoring - Patient Demographics Admission date: 10/01/21 Report Date: 10/02/21 Time: 07:21 Allergies/Adverse Reactions: Patient Allergies No Known Allergies Allergy (Unverified 06/02/17 14:49) Height: 1.83 m Weight: 69.264 kg Patient Problems: Current Active Problems Coronary artery disease (Acute) Chest pain (Acute) Hypertension (Acute) - VTE Risk Labs: VTE Related Lab Results Hgb 12.5 g/dL (14.1-18.0) L 10/01/21 18:22 Hct 38.3 % (42.0-52.0) L 10/01/21 18:22 Plt Count 346 K/mm3 (142-424) 10/01/21 18:22 BUN 17 mg/dl (9-20) 10/01/21 18:22 Creatinine 0.90 mg/dl (0.66-1.25) 10/01/21 18:22 Estimated Creat Clear 55 mL/min (50-200) 10/01/21 18:22 Was VTE Risk Assessment Performed: Yes VTE Score: 2 VTE Risk Level: Very Low Risk - Prophylaxis VTE Prophylaxis Ordered?: Yes Types of VTE Prophylaxis: TEDS Knee High, Pharmacological Location of Applied Device: Bilateral Lower Extremeties Pharmacologic Type: Other (ELIQUIS)
--- NOTE | 2021-10-02 07:28 | XR_ITS ---
FINAL REPORT CLINICAL HISTORY: chest pain COMPARISON: October 01, 2021 FINDINGS: Two views of the chest were obtained. The heart size and pulmonary vascularity are within normal limits. The mediastinum is normal. No acute pulmonary abnormality is identified. There is no pneumothorax. There are moderate degenerative changes of the thoracic spine. IMPRESSION: No active cardiopulmonary disease. Reviewed, Interpreted and Dictated by Jan Elena III, MD Transcribed by Guillermo Calix Authenticated by Jan Elena III, MD on 10/02/2021 09:38:03 AM [facility]
[2021-10-02 07:30] LABS: Basophils % 1.9 % (0.1-2.0); Eosinophils % 3.5 % (0.1-12.0); Hematocrit 33.6 % (42.0-52.0); Hemoglobin 10.9 g/dL (14.1-18.0); Lymphocytes # 1.7 K/mm3 (0.7-4.5); Lymphocytes % 45.7 % (10-50); Mean Corpuscular HGB Conc 32.5 g/dL (31.8-35.4); Mean Corpuscular Volume 116.7 fl (80-94); Mean Platelet Volume 9.6 fl (7.4-10.4); Monocytes % 8.4 % (1.7-9.3); Neutrophils % 40.5 % (37.0-80.0); Platelet Count 293 K/mm3 (142-424); Red Blood Count 2.88 M/mm3 (4.60-6.20); Red Cell Distribution Width 13.3 % (11.5-17.5); White Blood Count 3.7 K/mm3 (4.8-10.8)
[2021-10-02 07:36] LABS: Troponin I < 0.01 ng/ml (0.00-0.034)
--- NOTE | 2021-10-02 07:42 | HMH.PHAINT ---
Home medication list has been verified using M claim history and information provided by the patient's spouse.
--- NOTE | 2021-10-02 09:22 | HMH.HP ---
*Admission Date: 10/01/21 <Jocelynn Marion Nabeel 10/02/21 09:32> *Chief complaint: Left anterior chest pain <MarionUrsulaJocelynn 10/02/21 09:32> *History of present illness: Mr. Abernathy is an 86-year-old male with a history of Hypothyroidism, hyperlipidemia, GERD,Heart disease with stent placements about 5 years ago, and atrial fibrillation who presented to [facility] emergency room for evaluation after experiencing left anterior chest discomfort. His said they had been to the store and he was sitting in a chair when the pain started. Patient denied having shortness of breath, nausea, diaphoresis, and palpitations. To note patient had attended a first session of physical therapy in the a.m. and did use the recumbent bike.. 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 last week at which time they did an EKG and an echo with pending results. With evaluation in the emergency room he was found to be stable. Potassium was low at 3.4 and hemoglobin was 12.5 hematocrit of 38.3. Renal function was normal. He did receive 1 nitroglycerin After which the chest discomfort significantly decreased. This a.m. he denies chest discomfort. He has been hungry and is eating his breakfast without difficulty. He did ambulate to the bathroom with help without problems. He states he is not short of breath. <SanamJocelynn 10/02/21 10:56> [facility] History Medical History: Reports:: Atrial Fibrillation, Coronary Artery Disease, Gastroesophageal Reflux Disease(GERD), Hyperlipidemia, Hypertension Denies:: Cancer, Diabetes Mellitus Type 1, Diabetes Mellitus Type 2, Internal Pacemaker, MRSA <Jocelynn Marion 10/02/21 10:56> *Have you ever received a pneumonia vaccine?: Yes <Jocelynn Marion 10/02/21 09:32> *Have you received a flu vaccine this season?: Yes <Jocelynn Marion 10/02/21 09:32> Other Medical History: Reports: Hypothyroidism <Jocelynn Marion 10/02/21 10:56> Other Surgeries: Yes: Coronary Stent. No: Pacemaker <Jocelynn Marion 10/02/21 09:32> Amputation: No <Jocelynn Marion 10/02/21 09:32> Fractures: No <Marion,Jocelynn - 10/02/21 09:32> - *Social History Last grade of school completed: High school graduate <SanamJocelynn - 10/02/21 09:32> Smoking Status: Never smoker <Jocelynn Marion 10/02/21 09:32> Alcohol Intake: never <Jocelynn Marion 10/02/21 09:32> *Occupational Status:: retired <Jocelynn Marion 10/02/21 09:32> Housing: house <Jocelynn Marion 10/02/21 09:32> Household Members: spouse <Jocelynn Marion 10/02/21 09:32> *Travel in the last 8 weeks: Inside the [place] <Jocelynn Marion 10/02/21 09:32> Family Hx:: Coronary Artery Disease <Jocelynn Marion 10/02/21 09:32> Review of Systems - Constitutional Reports lack of energy, Denies fever(s) <Jocelynn Marion 10/02/21 09:32> - Eyes Denies change in vision <Jocelynn Marion 10/02/21 09:32> - ENT Denies ear pain, Denies sore throat <Jocelynn Marion 10/02/21 09:32> - *Cardiovascular Reports chest pain, Denies shortness of breath, Denies generalized swelling, Denies leg swelling <Jocelynn Marion 10/02/21 09:32> - *Respiratory Denies chest congestion, Denies cough, Denies shortness of breath <Jocelynn Marion 10/02/21 09:32> - *Gastrointestinal Denies abdominal pain, Denies loose stools, Denies nausea, Denies vomiting <Jocelynn Marion 10/02/21 09:32> - *Genitourinary Denies difficulty urinating <Jocelynn Marion 10/02/21 09:32> - *Musculoskeletal Denies abnormal walking <Jocelynn Marion 10/02/21 09:32> - *Neurologic Reports weakness, Denies seizure-like activity, Denies dizziness, Denies headache(s), Denies loss of vision, Denies numbness <Jocelynn Marion - 10/02/21 09:32> Meds Home Medications Medication Instructions Recorded Confirmed Type Atorvastatin Calcium [Lipitor 20mg 20 mg PO HS 01/02/19 10/02/21 History Tab] Levothyroxine Sodium
--- NOTE | 2021-10-02 10:09 | CA_ITS ---
APPROVED REPORT EXAM: Comprehensive 2D, Doppler, and color-flow Echocardiogram [employer]iences Faculty Member: Marcela Zuleta CRT Ht: 6 ft 0 in Wt: 152lbs BSA: 1.90 BP: 132/70 mmHg Indications: Chest Pain, Atrial Fibrillation, CAD, Hyperlipidemia, Hypertension/HDD 2D Dimensions LVOT 1.60 cm (M/F) 1.5-2.5 M-Mode Dimensions RVDd 2.68 cm (0.9-2.6) LA Diam 3.23 cm (1.9-4.0) LVDd 4.22 cm (3.5-5.7) Ao Diam 4.02 cm (2.0-3.7) LVDs 2.50 cm (3.5-5.7) IVSd 1.50 cm (0.6-1.1) PWd 0.89 cm (0.6-1.1) EF (Teich) 71.90% FS 40.80% EDV (Teich) 79.50 mL TAPSE 1.45 (<1.7) ESV (Teich) 22.30 mL LV Diastology E Decel Time 360.00 (160-240 msec) E/A Ratio 0.71 MED E' 5.10 (< 7 cm/sec) MED A' 8.90 cm/s E'/MED E' Ratio 8.37 (>14) LAT E' 5.70 (<10 cm/sec) LAT A' 7.50 cm/s E/LAT E' Ratio 7.49 (>14) Aortic Valve AO Peak GR. 2.40 mmHg Mitral Valve MV E Max Ramy. 43.00 (40-130 cm/s) MV A Velocity 60.00 (40-130 cm/s) E/A Ratio 0.71 MV Decel. Time 360.00 (160-240 ms) MV PHT 105.00 ms Pulmonary Valve PV Peak Velocity 98.00 (50-150 cm/s) Tricuspid Valve TR P. Velocity 286.00 cm/s RAP Estimate 10.00 mmHg RVSP 42.70 mmHg Left Ventricle Left atrium is mildly enlarged, left ventricle normal size, mild concentric left ventricular hypertrophy, estimated ejection fraction 55% with no regional wall motion abnormality, endocardial surfaces are poorly visualized. Diastolic parameters are inconclusive. Right Ventricle Right atrium and right ventricle are normal size and contractility. Aortic Valve Aortic valve is minimally thickened and fibrosed there is no aortic stenosis or aortic insufficiency. Mitral Valve Mitral valve is mildly thickened, there is mild mitral regurgitation. Tricuspid Valve Tricuspid grossly normal, there is mild tricuspid regurgitation, tricuspid regurgitation jet velocity is inadequate for calculation of the right ventricular systolic pressure. Pulmonic Valve Pulmonic valve is poorly visualized. Great Vessels Aortic root is normal size. Inferior vena cava is poorly visualized. Pericardium No significant pericardial effusion noted. Conclusion 1. Mildly enlarged left atrium, normal left ventricular size, mild concentric left ventricular hypertrophy, estimated ejection fraction 55% with no regional wall motion abnormality, diastolic parameters inconclusive. 2. Mild mitral and tricuspid regurgitation. 3. No significant pericardial effusion 4. Inferior vena cava is poorly visualized. Electronically signed by : Cas Plunkett MD 10/02/2021 19:22:07
--- NOTE | 2021-10-02 10:09 | CA_ITS ---
FINAL REPORT TECHNIQUE: Color Doppler, duplex Doppler and peralta scale sonography of the bilateral neck vasculature was performed. Velocities were measured in the carotid arteries. Stenosis evaluation based on velocity criteria. CLINICAL HISTORY: asmita FINDINGS: The peak systolic velocity of the right common carotid artery is 69 cm/sec and internal carotid artery 179 cm/sec. The diastolic velocity in the internal carotid artery is 30 cm/sec. The ICA/CCA ratio is 2.6. Visually, a moderate amount of plaque is seen. These findings are consistent with 50-69% stenosis. The external carotid artery is patent. The right vertebral artery is patent with antegrade flow. The peak systolic velocity of the left common carotid artery is 93 cm/sec and internal carotid artery 116 cm/sec. The diastolic velocity in the internal carotid artery is 38 cm/sec. The ICA/CCA ratio is 1.3. Visually, a moderate amount of plaque is seen. These findings are consistent with less than 50% stenosis. The external carotid artery is patent. The left vertebral artery is patent with antegrade flow. 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 Consider CTA or catheter directed angiography bruit Bilateral patent vertebral arteries. Reviewed, Interpreted and Dictated by Jan Elena III, MD Transcribed by Guillermo Calix Authenticated by Jan Elena III, MD on 10/02/2021 01:52:08 PM [facility]
--- NOTE | 2021-10-02 10:11 | HMH.CNCARD ---
History of Present Illness Consult date: 10/02/21 Requesting physician: Jimmy Jacinto Consult reason: chest pain Chief complaint: chest pain History of present illness: This is an 86-year-old white gentleman who presented to the emergency department with complaints of chest pain. The patient states that he was having substernal chest pain that he is having difficulty describing. He states that it was a discomfort and it got severe. The patient states that he got up to walk to the door when the symptoms started. His family reports that he had his first session with physical therapy yesterday and shortly after that visit is when he had sudden onset of the chest pain. He states that it did not radiate. There were no associated symptoms. It was severe and made him feel very uncomfortable. The patient does have a known history of coronary artery disease with stents placed approximately 5 years ago and he does have atrial fibrillation as well. The patient states that the chest pain has improved but he is still currently having the chest pain. He ruled out for an [place]. He states that his chest pain was severe at home but is now very mild in intensity. He denies any fever, chills, nausea, vomiting, diarrhea, PND or orthopnea. [facility] History I have reviewed the patient's past medical history: Yes Medical History: Reports:: Coronary Artery Disease, Gastroesophageal Reflux Disease(GERD), Hyperlipidemia, Hypertension Denies:: Cancer, Diabetes Mellitus Type 1, Diabetes Mellitus Type 2, Internal Pacemaker, MRSA *Have you ever received a pneumonia vaccine?: Yes *Have you received a flu vaccine this season?: Yes Other Surgeries: Yes: Coronary Stent. No: Pacemaker Amputation: No Fractures: No - *Social History Last grade of school completed: High school graduate Smoking Status: Never smoker Alcohol Intake: never *Occupational Status:: retired Housing: house Household Members: spouse *Travel in the last 8 weeks: Inside the [facility] Family Hx:: Coronary Artery Disease Meds Home Medications Medication Instructions Recorded Confirmed Type Atorvastatin Calcium [Lipitor 20mg 20 mg PO HS 01/02/19 10/02/21 History Tab] Levothyroxine Sodium 75 mcg PO DAILY 01/02/19 10/01/21 History [Levothyroxine 75mcg (0.075mg) Tab] Nitroglycerin [Nitrostat 0.4mg SL 0.4 mg SL NEEDED PRN 01/02/19 10/01/21 History Tablet] Omeprazole [Omeprazole 40mg 40 mg PO DAILY 01/02/19 10/01/21 History Capsule] Ropinirole HCl 1 mg PO HS 01/02/19 10/01/21 History Trazodone HCl 50 mg PO HS 01/02/19 10/01/21 History Furosemide [Furosemide 20mg Tab*] 20 mg PO DAILY 10/01/21 10/01/21 History Minocycline HCl [Minocycline HCl 100 mg PO DAILY 10/01/21 10/01/21 History 100mg Tab*] Tamsulosin HCl 0.4 mg PO DAILY 10/01/21 10/01/21 History Apixaban [Eliquis 5mg Tablet] 5 mg PO BID 10/02/21 10/02/21 History Megestrol Acetate 2.5 ml PO BID 10/02/21 10/02/21 History carvediloL [Carvedilol 3.125mg Tab] 3.125 mg PO BID 10/02/21 10/02/21 History Allergies Allergy/AdvReac Type Severity Reaction Status Date / Time No Known Allergies Allergy Unverified 06/02/17 14:49 Exam Vital signs and Labs for Last 24 Hours: Temp Pulse Resp BP Pulse Ox 98.6 F 91 H 14 132/70 95 10/02/21 08:00 10/02/21 09:21 10/02/21 09:21 10/02/21 09:21 10/02/21 08:00 Laboratory Results - last 24 hr 10/01/21 18:22: WBC 5.4, RBC 3.28 L, Hgb 12.5 L, Hct 38.3 L, MCV 116.7 H, MCH 38.1 H, MCHC 32.6, RDW 13.5, Plt Count 346, MPV 10.5 H, Neut % (Auto) 42.7, Lymph % (Auto) 41.4, [place] % (Auto) 10.7 H, Eos % (Auto) 2.6, Baso % (Auto) 2.6 H, Neut # (Auto) 2.3, Lymph # (Auto) 2.2, [place] # (Auto) 0.6, Eos # (Auto) 0.1, Baso # (Auto) 0.1 10/01/21 18:22: Sodium 141, Potassium 3.4 L, Chloride 109 H, Carbon Dioxide 25, Anion Gap 10.4, BUN 17, Creatinine 0.90, Estimated Creat Clear 55, Estimated GFR 80, Est GFR ( Amer) 97, Glucose 118 H, Calcium 9.6, Total Bilirubin 0.6,
[2021-10-02 10:25] LABS: Chol/HDL Ratio 4.2 (1-3.5); Cholesterol 84 mg/dl (140-200); HDL Cholesterol 20 mg/dl (40-60); Triglycerides 82 mg/dl (30-150); VLDL Cholesterol 16 mg/dL (0-40)
[2021-10-02 10:35] LABS: Direct LDL Cholesterol 51.67 mg/dL (100-129)
--- NOTE | 2021-10-02 18:40 | PC.NURSE ---
Vital signs not taken at four because 210 is cath vitals. Not brought to floor at four.
[2021-10-03] VITALS: BP 115/68; PULSE 76; PULSE 80; RESP 16; TEMP 36.6; O2SAT 94
[2021-10-03 04:00] VITALS: PULSE 89
[2021-10-03 05:16] VITALS: BMI 20.5
--- NOTE | 2021-10-03 06:28 | PC.NURSE ---
dressing to right wrist remains CDI. No issues overnight. Family stayed in room. No numbness, tingling or pain to right wrist.
[2021-10-03 07:37] LABS: Basophils # 0.1 K/mm3 (0-0.2); Basophils % 1.8 % (0.1-2.0); Eosinophils # 0.1 K/mm3 (0.0-0.4); Eosinophils % 3.4 % (0.1-12.0); Hematocrit 37.4 % (42.0-52.0); Lymphocytes # 1.5 K/mm3 (0.7-4.5); Lymphocytes % 35.1 % (10-50); Mean Corpuscular Volume 118.8 fl (80-94); Mean Platelet Volume 10.7 fl (7.4-10.4); Monocytes # 0.3 K/mm3 (0.1-1.0); Monocytes % 8.1 % (1.7-9.3); Neutrophils # 2.2 K/mm3 (1.8-7.8); Neutrophils % 51.7 % (37.0-80.0); Platelet Count 285 K/mm3 (142-424); Red Blood Count 3.14 M/mm3 (4.60-6.20); Red Cell Distribution Width 13.3 % (11.5-17.5); White Blood Count 4.3 K/mm3 (4.8-10.8)
[2021-10-03 07:49] LABS: Chloride 110 mmol/L (98-107); Potassium 3.7 mmoL/L (3.5-5.1); Sodium 139 mmol/L (136-145)
[2021-10-03 07:50] VITALS: BP 116/58; PULSE 95; RESP 16; TEMP 36.8; O2SAT 97
[2021-10-03 07:52] LABS: Anion Gap 9.7 mEq/L (5-15); Blood Urea Nitrogen 16 mg/dl (9-20); Carbon Dioxide 23 mmol/L (22.0-30.0); Creatinine Clearance Estimated 53 mL/min (50-200); Estimated Glomerular Filt Rate 92 ml/min (>60); GFR (African American) 111 ML/MIN (>60)
[2021-10-03 07:53] LABS: Calcium 9.1 mg/dl (8.4-10.2); Glucose 93 mg/dl (74-100)
[2021-10-03 09:18] LABS: Vitamin B12 603 pg/mL (239-931)
[2021-10-03 09:34] LABS: Folate > 20.00 ng/mL
--- NOTE | 2021-10-03 09:52 | HMH.ACPN2 ---
Internal Medicine - PN: Subj *Date: 10/03/21 *Time: 09:52 Interval history: Patient is feeling well this morning. He denies any chest pain or shortness of breath. He slept well and ate well and wants to go home. Exam Vital signs and Labs for Last 24 Hours: Temp Pulse Resp BP Pulse Ox 98.3 F 95 H 16 116/58 L 97 10/03/21 07:50 10/03/21 07:50 10/03/21 07:50 10/03/21 07:50 10/03/21 07:50 Laboratory Results - last 24 hr 10/02/21 06:35: Triglycerides 82, Cholesterol 84 L, LDL Cholesterol Direct 51.67 L, VLDL Cholesterol 16, HDL Cholesterol 20 L, Cholesterol/HDL Ratio 4.2 H 10/03/21 07:25: Vitamin B12 603, Folate > 20.00 10/03/21 07:25: WBC 4.3 L, RBC 3.14 L, Hgb 12.0 L, Hct 37.4 L, MCV 118.8 H, MCH 38.0 H, MCHC 32.0, RDW 13.3, Plt Count 285, MPV 10.7 H, Neut % (Auto) 51.7, Lymph % (Auto) 35.1, [place] % (Auto) 8.1, Eos % (Auto) 3.4, Baso % (Auto) 1.8, Neut # (Auto) 2.2, Lymph # (Auto) 1.5, Cassia # (Auto) 0.3, Eos # (Auto) 0.1, Baso # (Auto) 0.1 10/03/21 07:25: Sodium 139, Potassium 3.7, Chloride 110 H, Carbon Dioxide 23, Anion Gap 9.7, BUN 16, Creatinine 0.80, Estimated Creat Clear 53, Estimated GFR 92, Est GFR ( Amer) 111, Glucose 93, Calcium 9.1 I & O for Last 24 hours: Intake & Output 09/30/21 10/01/21 10/02/21 10/03/21 11:59 11:59 11:59 11:59 Intake Total 120 / 120 360 / 360 Output Total 0 / 0 350 / 350 Balance 120 / 120 10 / 10 Weight 152 lb 11.2 oz 152 lb - Constitutional no acute distress - *Routine Respiratory Exam Present: CTA bilaterally - *Routine Cardiovascular Exam Present: RRR - *Routine Abdominal Exam Present: soft, normoactive bowel sounds. Absent: tenderness - *Routine Extremities Exam Absent: cyanosis, clubbing, edema - *Routine Skin Exam Present: warm. Absent: rash - *Routine Neurological Exam Present: alert, oriented X3 Assessment and Plan (1) Chest pain Status: Acute Qualifiers: Chest pain type: unspecified Qualified Code(s): R07.9 - Chest pain, unspecified Category: Medical Code(s): R07.9 - Chest pain, unspecified (2) GERD (gastroesophageal reflux disease) Status: Chronic Category: Medical Code(s): K21.9 - Gastro-esophageal reflux disease without esophagitis (3) Coronary artery disease Status: Chronic Qualifiers: Coronary Disease-Associated Artery/Lesion type: marshall artery [place] vs. transplanted heart: marshall heart Associated angina: with unstable angina Qualified Code(s): I25.110 - Atherosclerotic heart disease of marshall coronary artery with unstable angina pectoris Category: Medical Code(s): I25.10 - Atherosclerotic heart disease of marshall coronary artery without angina pectoris (4) Hyperlipidemia Status: Chronic Qualifiers: Hyperlipidemia type: mixed hyperlipidemia Qualified Code(s): E78.2 - Mixed hyperlipidemia Category: Medical Code(s): E78.5 - Hyperlipidemia, unspecified (5) Hypertension Status: Chronic Qualifiers: Hypertension type: primary hypertension Qualified Code(s): I10 - Essential (primary) hypertension Category: Medical Code(s): I10 - Essential (primary) hypertension (6) Paroxysmal atrial fibrillation Status: Chronic Category: Medical Code(s): I48.0 - Paroxysmal atrial fibrillation (7) Anemia Status: Chronic Category: Medical Code(s): D64.9 - Anemia, unspecified (8) Arthritis Status: Chronic Category: Medical Code(s): M19.90 - Unspecified osteoarthritis, unspecified site - Assessment and plan all Dx Assessment and Plan for all problems:: His heart cath yesterday showed mild to moderate coronary disease in the right coronary artery, which was unlikely to produce angina. He had a hyperdynamic ventricle with normal left ventricular pressure. Cardiology recommends medical management and evaluation of noncardiac chest pain. He is stable to be discharged home today.
--- NOTE | 2021-10-03 11:28 | HMH.PNCARD ---
Subjective Date: 10/03/21 Time: 10:00 Principal diagnosis: angina, CAD Interval history: This is a 89-year-old white gentleman who presented to the emergency department with complaints of chest pain. He underwent left cardiac catheterization yesterday and was found to have mild to moderate coronary artery disease that did not require percutaneous intervention. This morning he denies any chest pain or pressure. He denies any shortness of breath or edema. He denies any fever, chills, nausea, vomiting, diarrhea, PND or orthopnea. Exam Vital signs and Labs for Last 24 Hours: Temp Pulse Resp BP Pulse Ox 98.3 F 95 H 16 116/58 L 97 10/03/21 07:50 10/03/21 07:50 10/03/21 07:50 10/03/21 07:50 10/03/21 07:50 Laboratory Results - last 24 hr 10/03/21 07:25: Vitamin B12 603, Folate > 20.00 10/03/21 07:25: WBC 4.3 L, RBC 3.14 L, Hgb 12.0 L, Hct 37.4 L, MCV 118.8 H, MCH 38.0 H, MCHC 32.0, RDW 13.3, Plt Count 285, MPV 10.7 H, Neut % (Auto) 51.7, Lymph % (Auto) 35.1, [place] % (Auto) 8.1, Eos % (Auto) 3.4, Baso % (Auto) 1.8, Neut # (Auto) 2.2, Lymph # (Auto) 1.5, [place] # (Auto) 0.3, Eos # (Auto) 0.1, Baso # (Auto) 0.1 10/03/21 07:25: Sodium 139, Potassium 3.7, Chloride 110 H, Carbon Dioxide 23, Anion Gap 9.7, BUN 16, Creatinine 0.80, Estimated Creat Clear 53, Estimated GFR 92, Est GFR ( Amer) 111, Glucose 93, Calcium 9.1 I & O for Last 24 hours: Intake & Output 09/30/21 10/01/21 10/02/21 10/03/21 23:59 23:59 23:59 23:59 Intake Total 240 / 240 240 / 240 Output Total 350 / 350 Balance -110 / -110 240 / 240 Weight 152 lb 11.2 oz 152 lb Narrative: Left heart cath shows: The left main artery Normal The left anterior descending artery Mild 10% proximal mid vessel luminal irregularities The circumflex artery Nondominant and normal The right coronary artery Dominant with proximal 40% stenosis and additional mid vessel 40 to 50% stenosis with additional distal 40% stenosis The CAGE ventriculogram reveals Hyperdynamic 75% The left ventricular end-diastolic pressure 10 mmHg IMPRESSION Mild to moderate coronary disease in the right coronary artery which is unlikely to be producing angina Hyperdynamic ventricle Normal left ventricular pressure PLAN 1. Continue medical management 2. Evaluation of noncardiac chest pain Echocardiogram shows: 1. Mildly enlarged left atrium, normal left ventricular size, mild concentric left ventricular hypertrophy, estimated ejection fraction 55% with no regional wall motion abnormality, diastolic parameters inconclusive. 2. Mild mitral and tricuspid regurgitation. 3. No significant pericardial effusion 4. Inferior vena cava is poorly visualized. Carotid duplex shows: 50-69% right carotid stenosis with less than 50% left carotid stenosis. Consider CTA or catheter directed angiography bruit Bilateral patent vertebral arteries. - Constitutional no acute distress, average body habitus - *Routine HEENT Exam Head: Present: normocephalic, atraumatic Eye: Present: EOMI, PERRL ENT: Present: mucous membranes moist - *Routine Neck Exam Present: supple, full ROM, carotid bruit (Bilateral carotid bruits), normal carotid upstroke. Absent: JVD, lymphadenopathy - *Routine Respiratory Exam Present: CTA bilaterally - *Routine Cardiovascular Exam Present: RRR, Normal S1, Normal S2. Absent: murmur - *Routine Abdominal Exam Present: soft, normoactive bowel sounds. Absent: tenderness, distended - *Routine Extremities Exam Present: full ROM, pulses intact, normal capillary refill. Absent: cyanosis, clubbing, edema - *Routine Skin Exam Present: intact, warm. Absent: erythema, rash - *Routine Neurological Exam Present: alert, oriented X3, CN II-XII intact. Absent: sensory deficit, motor deficit Progress Note: A&P (1) GERD (gastroesophageal reflux disease) Status: Chronic (2) Coronary artery disease Status: Chronic (3) Hyperlipidemia Status: Chronic
--- NOTE | 2021-10-04 13:09 | HMH.DCSUM ---
General - General Admission date:: 10/01/21 Discharge date: 10/03/21 HPI HPI: Mr. Abernathy is an 86-year-old male with a history of Hypothyroidism, hyperlipidemia, GERD,Heart disease with stent placements about 5 years ago, and atrial fibrillation who presented to [facility] emergency room for evaluation after experiencing left anterior chest discomfort. His said they had been to the store and he was sitting in a chair when the pain started. Patient denied having shortness of breath, nausea, diaphoresis, and palpitations. To note patient had attended a first session of physical therapy in the a.m. and did use the recumbent bike.. 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 With evaluation in the emergency room he was found to be stable. Potassium was low at 3.4 and hemoglobin was 12.5 hematocrit of 38.3. Renal function was normal. He did receive 1 nitroglycerin After which the chest discomfort significantly decreased. This a.m. he denies chest discomfort. He has been hungry and is eating his breakfast without difficulty. He did ambulate to the bathroom with help without problems. He states he is not short of breath. Hospital Course Hospital Course: The patient was admitted and cardiology was consulted. They ordered a carotid duplex which showed 50 to 69% stenosis on the right and less than 50% stenosis on the left. They also ordered an echo which showed an EF of 55%. They felt the patient was having unstable angina and will need a cardiac cath. The heart cath was done on 10/02/2021 and showed mild to moderate coronary disease in the right coronary artery, which was unlikely to be producing his angina. He had a hyperdynamic ventricle and normal left ventricular pressure. Cardiology recommended continued medical management and evaluation of noncardiac chest pain. By 10/03/2021, the patient was feeling well. He denied any chest pain or shortness of breath and wanted to go home. He was stable to be discharged and will need to follow-up with cardiology in 1 to 2 weeks. Objective Vital signs: Temp Pulse Resp BP Pulse Ox 98.3 F 95 H 16 116/58 L 97 10/03/21 07:50 10/03/21 07:50 10/03/21 07:50 10/03/21 07:50 10/03/21 07:50 Narrative: - Constitutional no acute distress, thin - *Routine HEENT Exam Head: Present: normocephalic, atraumatic Eye: Present: PERRL. Absent: conjunctival icterus, scleral injection ENT: Present: mucous membranes moist, oropharynx clear - *Routine Neck Exam Present: supple. Absent: carotid bruit, lymphadenopathy, thyromegaly - Routine Chest/Breast/Axilla Exam Breast: Present: tenderness (left lower anterior chest) - *Routine Respiratory Exam Present: CTA bilaterally (A&P) - *Routine Cardiovascular Exam Present: RRR (monitor showing SR) - *Routine Abdominal Exam Present: soft, normoactive bowel sounds. Absent: tenderness, distended - *Routine Rectal Exam Rectal:: deferred - *Routine Genitalia Exam Genitalia:: deferred - *Routine Extremities Exam Absent: edema, calf tenderness - *Routine Neurological Exam Present: alert, oriented X3 DS: Diagnosis - Discharge Diagnosis (1) GERD (gastroesophageal reflux disease) Status: Chronic (2) Coronary artery disease Status: Chronic (3) Hyperlipidemia Status: Chronic (4) Hypertension Status: Chronic (5) Paroxysmal atrial fibrillation Status: Chronic (6) Anemia Status: Chronic (7) Arthritis Status: Chronic Discharge Plan - Patient Discharge Instructions ACTIVITY: Continue current activity DIET: advance to your usual diet Patient Instructions: Coronary Artery Disease, DI for Surgical Site Infection, DI for Chest Pain, DI for Coronary Artery Disease - Follow up
--- NOTE | 2021-10-04 14:22 | CARE MANAGER ---
Spoke with patient today post discharge states that he has no needs and has follow-up appointment.
== END 2021-10-03 12:27 | disposition home or self-care (01) ==
LOC: ER 20:16 → 2ND 20:39
PROVIDERS: Internal Medicine; Nurse Practitioner Family; Admitting Provider Family Medicine; Emergency Provider Emergency Medicine; PCP Family Medicine; Visit Provider Family Medicine
DX: R07.9 Chest pain, unspecified (principal); I25.10 Atherosclerotic heart disease of native coronary artery without angina pectoris; Z95.5 Presence of coronary angioplasty implant and graft; I48.0 Paroxysmal atrial fibrillation; I10 Essential (primary) hypertension; E78.5 Hyperlipidemia, unspecified; K21.9 Gastro-esophageal reflux disease without esophagitis; Z79.899 Other long term (current) drug therapy; E03.9 Hypothyroidism, unspecified; I65.23 Occlusion and stenosis of bilateral carotid arteries; Z20.822 Contact with and (suspected) exposure to COVID-19
CPT/HCPCS: 36415; 71045; 71046; 80048; 80053; 80061; 82607; 82746; 84484; 85025; 93005; 93306; 93458; 93880; 99152; 99285; C1725; C1769; C9803; G0378; J1644; Q9967; U0003; U0005

== ENCOUNTER 2021-10-15 14:00 | Outpatient (RCR) | payer MEDICARE, BC, SELFPAY | END 2021-10-15 14:05 | disposition home or self-care (01) | LOC: PT 14:00 | PROVIDERS: PCP Family Medicine; Visit Provider Family Medicine | DX: M53.3 Sacrococcygeal disorders, not elsewhere classified (principal); R53.1 Weakness; G45.9 Transient cerebral ischemic attack, unspecified | CPT/HCPCS: 97110; 97163 ==

== ENCOUNTER → 2022-11-26 10:10 | Outpatient (CLI) | payer MEDICARE, BC, SELFPAY ==
[2022-11-26 10:41] LABS: Hematocrit 34.1 % (42.0-52.0); Hemoglobin 10.8 g/dL (14.1-18.0); Mean Corpuscular HGB Conc 31.6 g/dL (31.8-35.4); Mean Corpuscular Hemoglobin 36.5 pg (27.0-31.2); Mean Corpuscular Volume 115.5 fl (80-94); Platelet Count 328 K/mm3 (142-424); Red Blood Count 2.95 M/mm3 (4.60-6.20); Red Cell Distribution Width 14.2 % (11.5-17.5); White Blood Count 4.6 K/mm3 (4.8-10.8)
[2022-11-26 11:31] LABS: Alanine Aminotransferase 43 U/L (12-78); Albumin Level 4.3 g/dl (3.5-5.0); Albumin/Globulin Ratio 1.4 (1.1-1.8); Alkaline Phosphatase 81 U/L (38-126); Anion Gap 14.5 mEq/L (5-15); Aspartate Amino Transferase 42 U/L (17-59); Bilirubin,Total 1.1 mg/dl (0.2-1.3); Blood Urea Nitrogen 16 mg/dl (9-20); Calcium 9.1 mg/dl (8.4-10.2); Carbon Dioxide 27 mmol/L (22.0-30.0); Chloride 101 mmol/L (98-107); Chol/HDL Ratio 3.2 (1-3.5); Cholesterol 116 mg/dl (140-200); Estimated Glomerular Filt Rate 107 ml/min (>60); GFR (African American) 129 ML/MIN (>60); Globulin 3.1 g/dL (1.3-3.2); Glucose 98 mg/dl (74-100); HDL Cholesterol 36 mg/dl (40-60); Potassium 3.5 mmoL/L (3.5-5.1); Sodium 139 mmol/L (136-145); Total Protein,Serum 7.4 g/dl (6.3-8.2); Triglycerides 118 mg/dl (30-150); VLDL Cholesterol 24 mg/dL (0-40)
[2022-11-26 11:41] LABS: Direct LDL Cholesterol 62.91 mg/dL (100-129)
[2022-11-26 11:46] LABS: 25-OH Vitamin D, Total 88.8 ng/mL (30-100)
[2022-11-26 11:58] LABS: Iron 126 ug/dL (49-181)
[2022-11-26 12:19] LABS: Vitamin B12 685 pg/mL (239-931)
== END ==
PROVIDERS: PCP Family Medicine; Visit Provider Family Medicine
DX: I10 Essential (primary) hypertension (principal); E61.1 Iron deficiency; E55.9 Vitamin D deficiency, unspecified
CPT/HCPCS: 36415; 80053; 80061; 82306; 82607; 83540; 85014; 85018; 85048; 85049

== ENCOUNTER 2022-11-26 12:47 | Emergency (ER) | payer MEDICARE, BC, SELFPAY ==
[2022-11-26 12:48] VITALS: BP 157/69; PULSE 85; RESP 19; TEMP 36.9; O2SAT 100; BMI 23.0
--- NOTE | 2022-11-26 13:16 | PC.NURSE ---
ed md at bedside
--- NOTE | 2022-11-26 13:23 | XR_ITS ---
FINAL REPORT CLINICAL HISTORY: weakness COMPARISON: 10/02/2021 FINDINGS: SINGLE VIEW CHEST The heart size is normal. The mediastinum is within normal limits. Mild bibasilar atelectasis versus scar is present. There is no evidence of pneumothorax. The bony thorax is intact. IMPRESSION: No acute cardiopulmonary process. Reviewed, Interpreted and Dictated by Jan Elena III, MD Transcribed by Silvia Mercado Authenticated and [facility]
--- NOTE | 2022-11-26 13:25 | HMH.EDGENADL ---
Discharge Plan Disposition Patient Disposition: Home, Self-Care Condition: Fair Chief Complaint: Weakness Prescriptions Prescriptions: No Action atorvastatin 20 MG tablet 20 mg PO HS ropinirole 1 MG tablet 1 mg PO HS Label Comments: take 1 tablet by mouth 1 TO 3 HOURS BEFORE BEDTIME TO PREVENT LEG CRAMPS Rx Instructions: Take 1mg PO 1 to 3 hours prior to bedtime to prevent leg cramps trazodone 50 MG tablet 50 mg PO HS omeprazole 40 MG capsule,delayed release(DR/EC) 40 mg PO DAILY Rx Instructions: Take 30 minutes before breakfast meal levothyroxine 75 MCG tablet 75 mcg PO DAILY Rx Instructions: Take 1 tablet by mouth daily alternating with 1/2 tablet by mouth every other day nitroglycerin 0.4 MG tablet, sublingual 0.4 mg SL NEEDED PRN (Reason: Chest Pain) tamsulosin 0.4 MG capsule 0.4 mg PO DAILY furosemide 20 MG tablet 20 mg PO DAILY minocycline 100 MG tablet 100 mg PO DAILY megestrol 400 MG/10 ML suspension 2.5 ml PO BID Rx Instructions: Give 2.5 ml PO bid before meals for appetite apixaban 5 MG tablet 5 mg PO BID carvedilol 3.125 MG tablet 3.125 mg PO BID Referrals Follow up/Referrals: Darrell Bishop MD [Primary Care Provider] - See instructions Clinical Impressions Clinical Impression: Weakness Instructions Patient Instructions: DI for Muscle Weakness Discharge ED Provider: Anthony Bullock General Adult HPI General Chief complaint: Weakness Stated complaint: low potassium and sodium, phy ref Time Seen by Provider: 11/26/22 13:49 Mode of Arrival: Wheelchair Source of Information: Patient and Relative Limitations: No Limitations Description of Symptoms (Recalled from ER Triage Doc. by RN): 87 yo M presents to ED for physician referral. pts daughter states that pt was seen in dr payton office for annual blood work this am. pt was sent to outpatient lab located here in hospital to have the blood work drawn instead of having it done in the office. pt was then called by dr payton office and told to come to ED for evaluation of low potassium and low sodium. pts and daughter state that pt has had decreased appetite and increased weakness ongoing for the past few weeks. History of Present Illness HPI narrative: This is an 87-year-old male who was referred to the ER by his primary care doctor because of low sodium and low potassium . Patient was self has been complaining of generalized weakness for the past several weeks. No fevers no chills no chest pain or shortness of breath there is a nonproductive cough no hemoptysis no abdominal pain vomiting or diarrhea. Related Data Home Medications Medication Instructions Recorded Confirmed atorvastatin 20 mg tablet 20 mg PO HS High cholesterol 01/02/19 10/16/21 levothyroxine 75 mcg tablet 75 mcg PO DAILY thyroid 01/02/19 10/16/21 nitroglycerin 0.4 mg sublingual 0.4 mg SL NEEDED PRN Chest Pain 01/02/19 10/16/21 tablet omeprazole 40 mg capsule,delayed 40 mg PO DAILY stomach 01/02/19 10/16/21 release ropinirole 1 mg tablet 1 mg PO HS RLS 01/02/19 10/16/21 trazodone 50 mg tablet 50 mg PO HS sleep 01/02/19 10/16/21 furosemide 20 mg tablet 20 mg PO DAILY Heart 10/01/21 10/16/21 minocycline 100 mg tablet 100 mg PO DAILY other 10/01/21 10/16/21 tamsulosin 0.4 mg capsule 0.4 mg PO DAILY prostate 10/01/21 10/16/21 apixaban 5 mg tablet 5 mg PO BID stents 10/02/21 10/16/21 carvedilol 3.125 mg tablet 3.125 mg PO BID Heart Rate Control 10/02/21 10/16/21 megestrol 400 mg/10 mL (10 mL) 2.5 ml PO BID Appetite Stimulant 10/02/21 10/16/21 oral suspension Allergies Allergy/AdvReac Type Severity Reaction Status Date / Time No Known Allergies Allergy Verified 10/16/21 10:26 [facility] Disclaimer: The information contained in this section may have been updated after the patient was seen, as this information can be updated by other users. Juan Luis
[2022-11-26 13:30] VITALS: BP 125/52; PULSE 81; O2SAT 100
--- NOTE | 2022-11-26 13:47 | PC.NURSE ---
XR AT BEDSIDE
[2022-11-26 14:00] VITALS: BP 112/59; PULSE 85; O2SAT 98
[2022-11-26 14:01] LABS: Microscopic, Urine URINE MICROSCOPIC (MICROSCOPIC)
[2022-11-26 14:05] LABS: Appearance,Urine CLEAR (Clear); Bilirubin,Urine Negative (Negative); Blood, Urine Negative (Negative); Color,Urine YELLOW (Yellow); Glucose,Urine (UA) Negative (Negative); Ketones,Urine Negative (Negative); Leukocyte Esterase,Urine Negative (Negative); Nitrate,Urine Negative (Negative); Protein,Urine Negative (Negative)
[2022-11-26 14:05] LABS: Thyroid Stimulating Hormone 1.87 uIU/mL (0.465-4.68)
[2022-11-26 14:16] LABS: Bacteria,Urine Trace /lpf; Mucus,Urine Trace /lpf; RBC,Urine Occasional #/hpf (0-3); Squamous Epithelial Cell,Urine Occasional #/hpf (0-5); WBC,Urine Occasional #/hpf (0-3)
--- NOTE | 2022-11-26 14:17 | ECG_ITS ---
APPROVED REPORT Exam: Resting ECG HR:78 bpm ECG Measurements Heart Rate 78 AXES ID 141 P 69 QRSd 93 QRS 97 QT 380 T 66 QTc 413 Conclusion SINUS RHYTHM BORDERLINE RIGHT AXIS DEVIATION [QRS AXIS > 90] SEPTAL MYOCARDIAL INFARCTION , OF INDETERMINATE AGE [40+ ms Q WAVE IN V1/V2] ABNORMAL ECG UNCONFIRMED REPORT Electronically signed by : Get Garza MD 11/28/2022 16:23:37
--- NOTE | 2022-11-26 14:22 | PC.NURSE ---
rounded on pt while doing an EKG on said pt. pt asked if he could have a warm blanket, delivered pt a warm blanket when i got the EKG done.
[2022-11-26 14:31] VITALS: BP 128/56; PULSE 83; O2SAT 98
[2022-11-26 15:04] VITALS: BP 112/59; PULSE 85; RESP 16; TEMP 36.9
== END 2022-11-26 15:06 | disposition home or self-care (01) ==
PROVIDERS: Emergency Provider Emergency Medicine; PCP Family Medicine
DX: R53.1 Weakness (principal)
CPT/HCPCS: 36415; 71045; 80053; 80061; 81001; 82306; 82607; 83540; 84443; 85014; 85018; 85048; 85049; 93005; 99284; 99285

== ENCOUNTER 2023-02-04 09:59 | Inpatient (IN) | payer MEDICARE, BC, SELFPAY ==
[2023-02-04] VITALS (47 sets, daily range): BP systolic 68–155; BP diastolic 28–83; PULSE 71–105; RESP 18–20; TEMP 36.7–39.1; O2SAT 94–100; BMI 21.5; BMI 23.0
--- NOTE | 2023-02-04 10:07 | ECG_ITS ---
APPROVED REPORT Exam: Resting ECG HR:79 bpm ECG Measurements Heart Rate 79 AXES RI 137 P 74 QRSd 76 QRS 126 QT 332 T 66 QTc 366 Conclusion SINUS RHYTHM WITH OCCASIONAL SUPRAVENTRICULAR PREMATURE COMPLEXES POSSIBLE RIGHT VENTRICULAR HYPERTROPHY [SOME/ALL OF: PROMINENT R IN V1, LATE TRANSITION, RAD, ANA, SSS] ABNORMAL ECG UNCONFIRMED REPORT Electronically signed by : Get Garza MD 02/05/2023 06:44:35
--- NOTE | 2023-02-04 10:15 | CT_ITS ---
FINAL REPORT TECHNIQUE: Postcontrast axial images through the abdomen and pelvis were performed. This study was performed with techniques to keep radiation doses as low as reasonably achievable, (ALARA). Individualized dose reduction techniques using automated exposure control or adjustment of mA and/or kV according to the patient's size were employed. CLINICAL HISTORY: weakness, weight loss COMPARISON: 12/01/2019 FINDINGS: Abdomen: There is a large pericardial effusion, new since previous. Pericardial effusion measures 2 cm in depth. Pericardial fluid demonstrates a mean attenuation value of 11 Hounsfield units. The liver is normal in size and attenuation. The gallbladder is distended. The spleen is unremarkable. The adrenals are normal. The pancreas is unremarkable. There is a benign-appearing cyst in the lower pole of the left kidney, stable. The aorta is normal in caliber. No free fluid or adenopathy is identified. No findings for mechanical bowel obstruction are identified. Pelvis: The appendix is not identified. The urinary bladder is incompletely distended. There is circumferential bladder wall thickening with mild stranding around the bladder. The prostate and seminal vesicles are prominent. No free fluid, free air, abscess or adenopathy is identified. IMPRESSION: Pericardial effusion which is new. This does not appear to represent simple fluid. Pericardiocentesis may be of value. Bladder wall thickening with surrounding inflammatory reaction consistent with acute or chronic cystitis. Reviewed, Interpreted and Dictated by Dangelo Chi MD Transcribed by Jocelynn Morley Authenticated and [facility]
--- NOTE | 2023-02-04 10:15 | CT_ITS ---
FINAL REPORT TECHNIQUE: The patient was injected with IV contrast. Axial images were obtained through the chest in a PE protocol. 3-D reconstruction images were also performed. Individualized dose reduction techniques using automated exposure control or adjustment of the MA and/or KV according to patient's size were employed. CLINICAL HISTORY: soa cough weak tachycardia FINDINGS: Mediastinal vasculature is adequately opacified. No pulmonary artery filling defects are identified to suggest PE. There is no aortic dissection. There are calcified precarinal and subcarinal lymph nodes. The heart size is normal. There is a pericardial effusion measuring 2 cm in depth. Limited images of the upper abdomen demonstrate a distended gallbladder. No suspicious infiltrate or nodule is identified. There are calcified granulomas in the right middle lobe. There is scarring in the lung bases. IMPRESSION: No pulmonary embolus or dissection. Pericardial effusion measures 2 cm in depth. Reviewed, Interpreted and Dictated by Dangelo Chi MD Transcribed by Jocelynn Morely Authenticated and [facility]
--- NOTE | 2023-02-04 10:15 | XR_ITS ---
FINAL REPORT CLINICAL HISTORY: cough weak COMPARISON: 11/26/2022 FINDINGS: SINGLE-VIEW CHEST The cardiac silhouette is enlarged, increased over previous. The mediastinum is normal. The lungs are underinflated. There is no pneumothorax. IMPRESSION: Increased size of cardiac silhouette, probably related to pericardial effusion. Reviewed, Interpreted and Dictated by Dangelo Chi MD Transcribed by Jocelynn Morley Authenticated and [facility]
--- NOTE | 2023-02-04 10:15 | CT_ITS ---
FINAL REPORT CLINICAL HISTORY: falls on eliquis COMPARISON: 09/17/2019 FINDINGS: Axial images of the head were obtained without contrast. Coronal reformatted images were also obtained. This study was performed with techniques to keep radiation doses as low as reasonably achievable (ALARA). Individualized dose reduction techniques using automated exposure control or adjustment of mA and/or kV according to the patient's size were employed. There is mild to moderate atrophy. There is proportional ventriculomegaly. Periventricular low-attenuation areas are seen consistent with mild chronic ischemic changes. There is no evidence of intracranial hemorrhage or mass. There is no evidence of acute infarct. There is no evidence of shift of the midline structures. No skull abnormality is seen on the bone window images. IMPRESSION: Atrophy and mild periventricular chronic ischemic changes. Findings are stable since previous. No acute intracranial abnormality identified. Reviewed, Interpreted and Dictated by Dangeol Chi MD Transcribed by Jocelynn Morley Authenticated and [facility]
--- NOTE | 2023-02-04 10:18 | HMH.EDGENADL ---
Discharge Plan Disposition Patient Disposition: Admitted Chief Complaint: Weakness Discharge ED Provider: Gibson Jones General Adult HPI General Chief complaint: Weakness Stated complaint: AO8/23@home, weak Time Seen by Provider: 02/04/23 10:05 Mode of Arrival: Wheelchair Source of Information: Patient and Spouse Limitations: No Limitations Description of Symptoms (Recalled from ER Triage Doc. by RN): Per spouse patient fell out of bed last night and twice this morning. States the patient has been weak and not eating for about 2-3 weeks. History of Present Illness HPI narrative: This 87-year-old male presents to the emergency department with concerns of diffuse weakness, multiple falls in the last 24 hours. Patient is on daily Eliquis. He is also supposed to take furosemide but his states that she stopped giving it to him approximately 2 weeks ago because he was always getting up to go to the bathroom. Reportedly over the last 2 to 3 weeks patient has had progressive weakness, generalized fatigue. He also is having myalgias. He has had progressive cough as well. He has had poor oral intake and 's concern for dehydration and 15 pound weight loss over this time. Reportedly has falls in the last 24 hours were all trying to get out of bed and he required assistance getting up off the floor each time. He denies pain from these falls at this time but does have pain in his chest. He denies shortness of breath. Related Data Home Medications Medication Instructions Recorded Confirmed atorvastatin 20 mg tablet 20 mg PO HS Cholesterol 01/02/19 02/04/23 levothyroxine 75 mcg tablet 75 mcg PO Q48H thyroid 01/02/19 02/04/23 ropinirole 1 mg tablet 1 mg PO HS Restless Leg(S) 01/02/19 02/04/23 trazodone 50 mg tablet 50 mg PO HS sleep 01/02/19 02/04/23 tamsulosin 0.4 mg capsule 0.4 mg PO DAILY prostate 10/01/21 02/04/23 apixaban 5 mg tablet 5 mg PO BID Blood Thinner/afib 10/02/21 02/04/23 carvedilol 3.125 mg tablet 3.125 mg PO BID High Blood Pressure 10/02/21 02/04/23 aspirin 81 mg capsule 81 mg PO DAILY heart health 02/04/23 02/04/23 dronabinol 2.5 mg capsule 2.5 mg PO DAILY Appetite 02/04/23 02/04/23 furosemide 40 mg tablet 20 mg PO HS Fluid 02/04/23 02/04/23 furosemide 40 mg tablet 40 mg PO DAILY Fluid 02/04/23 02/04/23 levothyroxine 75 mcg tablet 37.5 mcg PO Q48H Thyroid 02/04/23 02/04/23 megestrol 20 mg tablet 20 mg PO BID Appetite 02/04/23 02/04/23 omeprazole 20 mg capsule,delayed 20 mg PO DAILY Acid Reflux 02/04/23 02/04/23 release prednisone 1 mg tablet 2 mg PO MOWEFR Steroid 02/04/23 02/04/23 Allergies Allergy/AdvReac Type Severity Reaction Status Date / Time clindamycin Allergy Verified 02/04/23 10:15 daptomycin Allergy Verified 02/04/23 10:15 [facility] Disclaimer: The information contained in this section may have been updated after the patient was seen, as this information can be updated by other users. Social History Smoking Status: Never smoker alcohol intake: never current occupational status: retired Travel in the last 8 weeks: Inside the [place] household members: spouse housing: house current occupational exposures/hazards: No caffeine: No ROS Obtained: Yes All systems reviewed & no additional complaints except as documented Constitutional Constitutional: Denies chills, Reports fatigue, Denies fever(s), Denies headache(s) and Reports weakness Eyes Eyes: Denies change in vision ENT Ears, Nose, Mouth, and Throat: Denies dizziness, Denies headache(s), Denies nasal congestion and Denies sore throat Cardiovascular Cardiovascular: Reports chest pain, Denies dyspnea and Denies leg edema Respiratory Respiratory: Reports cough and Denies dyspnea Gastrointestinal Gastrointestingal: Denies constipation, diarrhea, nausea or vomiting Genitourinary Male Genitourinary: Denies difficulty urinating Musculoskeletal Musculoskeletal: Denies arthralgias, Denies myalgias, Denies numbness and
--- NOTE | 2023-02-04 10:26 | XR_ITS ---
FINAL REPORT CLINICAL HISTORY: fall, abrasion FINDINGS: Right tibia fibula Two views were obtained. There is no acute fracture or dislocation. The joint spaces appear normal. No soft tissue abnormality is identified. IMPRESSION: No acute process. Reviewed, Interpreted and Dictated by Dangelo Chi MD Transcribed by Jocelynn Morley Authenticated and . [facility]
[2023-02-04 10:31] LABS: Basophils # 0.1 K/mm3 (0-0.2); Basophils % 0.3 % (0.1-2.0); Eosinophils # 0.1 K/mm3 (0.0-0.4); Eosinophils % 0.8 % (0.1-12.0); Hematocrit 34.4 % (42.0-52.0); Hemoglobin 11.2 g/dL (14.1-18.0); Lymphocytes # 1.4 K/mm3 (0.7-4.5); Lymphocytes % 8.6 % (10-50); Mean Corpuscular HGB Conc 32.5 g/dL (31.8-35.4); Mean Corpuscular Hemoglobin 35.7 pg (27.0-31.2); Mean Corpuscular Volume 109.7 fl (80-94); Mean Platelet Volume 9.4 fl (7.4-10.4); Monocytes # 0.6 K/mm3 (0.1-1.0); Monocytes % 3.6 % (1.7-9.3); Neutrophils # 14.3 K/mm3 (1.8-7.8); Neutrophils % 86.7 % (37.0-80.0); Platelet Count 257 K/mm3 (142-424); Red Blood Count 3.14 M/mm3 (4.60-6.20); Red Cell Distribution Width 15.1 % (11.5-17.5); White Blood Count 16.5 K/mm3 (4.8-10.8)
[2023-02-04 10:32] LABS: Chloride 102 mmol/L (98-107); Potassium 3.7 mmoL/L (3.5-5.1); Sodium 136 mmol/L (136-145)
[2023-02-04 10:33] LABS: Coronavirus 19, PCR Not Detected (NotDetected); Influenza A, PCR Not Detected (NotDetected); Influenza B, PCR Not Detected (NotDetected)
[2023-02-04 10:34] LABS: Alanine Aminotransferase 31 U/L (12-78); Alkaline Phosphatase 110 U/L (38-126); Aspartate Amino Transferase 56 U/L (17-59); Bilirubin,Total 2.2 mg/dl (0.2-1.3); Blood Urea Nitrogen 16 mg/dl (9-20); Creatinine Clearance Estimated 51 mL/min (50-200); Estimated Glomerular Filt Rate 107 ml/min (>60); GFR (African American) 129 ML/MIN (>60)
[2023-02-04 10:35] LABS: Albumin Level 3.6 g/dl (3.5-5.0); Albumin/Globulin Ratio 0.9 (1.1-1.8); Anion Gap 12.7 mEq/L (5-15); Calcium 9.4 mg/dl (8.4-10.2); Carbon Dioxide 25 mmol/L (22.0-30.0); Creatine Kinase 714 U/L (55-170); Globulin 3.9 g/dL (1.3-3.2); Glucose 103 mg/dl (74-100); Total Protein,Serum 7.5 g/dl (6.3-8.2)
[2023-02-04 10:43] LABS: Microscopic, Urine URINE MICROSCOPIC (MICROSCOPIC)
--- NOTE | 2023-02-04 10:43 | PC.NURSE ---
lab aware of second set of cultures that needs collected
[2023-02-04 10:44] LABS: NT Pro Brain Natriuretic Pep. 1930 pg/mL (0-450)
[2023-02-04 10:46] LABS: Appearance,Urine CLEAR (Clear); Bilirubin,Urine Negative (Negative); Blood, Urine 2+ (Negative); Color,Urine YELLOW (Yellow); Glucose,Urine (UA) Negative (Negative); Ketones,Urine Negative (Negative); Leukocyte Esterase,Urine 1+ (Negative); Nitrate,Urine POSITIVE (Negative); PH,Urine 6.5 (5.0-8.5); Protein,Urine 1+ (Negative); Urobilinogen,Urine >=8.0 EU/dl (0.2)
[2023-02-04 10:49] LABS: Troponin I < 0.01 ng/ml (0.00-0.034)
--- NOTE | 2023-02-04 10:51 | PC.NURSE ---
portable radiology at
--- NOTE | 2023-02-04 11:02 | P.CONPHA_ITS ---
Pharmacy Consult Date: 02/04/23 Time: 11:02 Referring provider: DR. JONES Reason for Consult:: VANCOMYCIN DOSING Allergies Allergy/AdvReac Type Severity Reaction Status Date / Time clindamycin Allergy Verified 02/04/23 10:15 daptomycin Allergy Verified 02/04/23 10:15 Home Medications Medication Instructions Recorded Confirmed Type atorvastatin 20 mg tablet 20 mg PO HS High cholesterol 01/02/19 02/04/23 History levothyroxine 75 mcg tablet 75 mcg PO DAILY thyroid 01/02/19 02/04/23 History omeprazole 40 mg capsule,delayed 40 mg PO DAILY stomach 01/02/19 02/04/23 History release ropinirole 1 mg tablet 1 mg PO HS RLS 01/02/19 02/04/23 History trazodone 50 mg tablet 50 mg PO HS sleep 01/02/19 02/04/23 History furosemide 20 mg tablet 20 mg PO DAILY Heart 10/01/21 02/04/23 History tamsulosin 0.4 mg capsule 0.4 mg PO DAILY prostate 10/01/21 02/04/23 History apixaban 5 mg tablet 5 mg PO BID stents 10/02/21 02/04/23 History carvedilol 3.125 mg tablet 3.125 mg PO BID Heart Rate Control 10/02/21 02/04/23 History megestrol 400 mg/10 mL (10 mL) 2.5 ml PO BID Appetite Stimulant 10/02/21 02/04/23 History oral suspension aspirin 81 mg capsule 81 mg PO DAILY heart health 02/04/23 02/04/23 History New Prescriptions to Start Prescriptions: Height: 1.78 m Weight: 68.039 kg Laboratory Results:: Laboratory Results - last 24 hr 02/04/23 10:10: Sodium 136, Potassium 3.7, Chloride 102, Carbon Dioxide 25, An ion Gap 12.7, BUN 16, Creatinine 0.70, Estimated Creat Clear 51, Estimated GFR 107, Est GFR ( Amer) 129, Glucose 103 H, Calcium 9.4, Total Bilirubin 2.2 H, AST 56, ALT 31, Alkaline Phosphatase 110, Total Creatine Kinase 714 H*, Troponin I < 0.01, NT-Pro-B Natriuret Pep 1930 H, Total Protein 7.5, Albumin 3.6, Globulin 3.9 H, Albumin/Globulin Ratio 0.9 L 02/04/23 10:25: Lactate 2.0 Assessment and Plan Assessment and plan all Dx Assessment and Plan for all problems:: Pharmacokinetic dosing service Objective: Patient: Floor: Age: 87 yo Serum creatinine: 1.00 mg/dL Height: 70.0 Inches Weight (kg): 68 Assessment: IBW (kg): 73.00 Dosing wt(kg): 68 Estimated Creatinine clearance (ml/min): 51.0 CRCL method: Cockcroft and Gault using ibw(default). Drug selected: Vancomycin Loading dose (mg): Vd (liters): 54.4 (factor used: 0.8 L/kg) Travon (hr-1): 0.047 Half life (hrs): 14.75 CLvanco=?? 2.557 L/hr Recommended dose: 1250 mg Interval: 24 hrs Infusion time (hrs): 2.0 Predicted peak (mcg/mL): 32.4 Predicted trough (mcg/mL): 11.52 Total body weight is being used for vancomycin dosing. Recommendations: Give Vancomycin 1250 mg q 24 hrs with an expected Cpeak of 32.4 mcg/ml and an expected Ctrough of 11.52 mcg/ml AUC 0-24 /LAKISHA Data: LAKISHA 0.5 mcg/mL:?? AUC/LAKISHA:? 977.7 LAKISHA 1.0 mcg/mL:?? AUC/LAKISHA:? 488.9 --------- LAKISHA 1.5 mcg/mL:?? AUC/LAKISHA:? 325.9 LAKISHA 2.0 mcg/mL:?? AUC/LAKISHA:? 244.4 Thank you for the consult, will continue to follow. -MAYNOR MALONEY, CHRISTINAD
[2023-02-04 11:08] LABS: Bacteria,Urine 2+ /lpf; Squamous Epithelial Cell,Urine Occasional #/hpf (0-5)
[2023-02-04 11:30] LABS: Free T4 (Free Thyroxine) 1.51 ng/dl (0.78-2.19)
--- NOTE | 2023-02-04 11:52 | PC.NURSE ---
changed pt with trini ann assistance and place male bayleewick adjusted pt in bed, family at bs
[2023-02-04 12:08] LABS: MANUAL DIFFERENTIAL MANUAL DIFFERENTIAL (MANUAL DIFF)
--- NOTE | 2023-02-04 12:49 | PC.NURSE ---
Karen B, RN has been made aware of patients low BP; she is speaking with Dr. Jones at this time
[2023-02-04 12:54] LABS: Lymphocytes % 16 % (10-50); Macrocytosis 2+; Monocytes % 3 % (2-9); Neutrophils % 81 % (42-76); Total Cells Counted 100
[2023-02-04 12:55] LABS: Platelet Estimate Normal
--- NOTE | 2023-02-04 14:12 | PC.NURSE ---
CARE MANAGEMENT CALLED FOR ADMISSION
[2023-02-04 14:16] LABS: Troponin I 0.01 ng/ml (0.00-0.034)
--- NOTE | 2023-02-04 14:24 | CA_ITS ---
APPROVED REPORT EXAM: Comprehensive 2D, Doppler, and color-flow Echocardiogram Radio Recorder: Pamela Gomez, RENATA, RVS Ht: 5 ft 10 in Wt: 150lbs BSA: 1.85 BP: 95/66 mmHg Indications: pericardial effusion, afib, cad, stents, chest pain 2D Dimensions IVSd 1.07 cm M: 0.6-1.2 LVEF (Visual) 62.80 % PWd 1.14 cm M: 0.6 - 1.2 LVDd 3.81 cm M: 4.2 - 5.9 LVDs 2.54 cm M: 2.5 - 4.0 Aortic Root 3.17 cm M: 3.1 - 3.7 Left Atrium 3.37 cm M: 3.0 - 4.0 LVOT 1.96 cm (M/F) 1.5-2.5 M-Mode Dimensions RVDd 2.07 cm (0.9-2.6) LA Diam 3.44 cm (1.9-4.0) LVDd 4.58 cm (3.5-5.7) Ao Diam 3.30 cm (2.0-3.7) LVDs 2.47 cm (3.5-5.7) IVSd 1.14 cm (0.6-1.1) PWd 0.75 cm (0.6-1.1) EF (Teich) 77.50% EPSs 0.39 cm FS 46.10% EDV (Teich) 96.30 mL ESV (Teich) 21.70 mL LV Diastology E Decel Time 213.00 (160-240 msec) E/A Ratio 0.88 MED E' 6.50 (< 7 cm/sec) MED A' 9.40 cm/s E'/MED E' Ratio 11.29 (>14) LAT E' 8.30 (<10 cm/sec) LAT A' 7.30 cm/s E/LAT E' Ratio 8.84 (>14) Aortic Valve LVOT Max 94.00 (70-110 cm/s) LVOT VTI 21.04 cm AoV Peak Ramy. 112.00 (50-130 cm/s) AO Peak GR. 5.10 mmHg AO Mean GR. 2.50 (<5 mmHg) AO VTI 22.28 (18-25 cm) SILVANO (VTI) 2.85 (2.5-4.5 cm2) Mitral Valve MV A Velocity 83.00 (40-130 cm/s) E/A Ratio 0.88 MV Decel. Time 213.00 (160-240 ms) Pulmonary Valve PV Peak Velocity 81.00 (50-150 cm/s) Left Ventricle The left ventricle is normal size. The left ventricular systolic function is normal. The left ventricular ejection fraction is within the normal range. There is increased LV wall thickness. There is normal LV segmental wall motion. The left ventricular diastolic function is normal. LVEF is 65%. Right Ventricle The right ventricle is normal size. The right ventricular systolic function is normal. There is increased RV wall thickness. Atria The left atrium size is normal. The right atrium size is normal. Aortic Valve The aortic valve opens well. The aortic valve is mildly thickened. There is no aortic valvular stenosis. No aortic regurgitation is present. Mitral Valve The mitral valve is normal in structure. No evidence of mitral valve stenosis. There is trace mitral valve regurgitation noted. Tricuspid Valve The tricuspid valve leaflets are thin and pliable. There is insufficient TR jet to estimate RVSP. Pulmonic Valve The pulmonary valve is normal in structure. Trace pulmonic regurgitation. Great Vessels The aortic root is normal in size. The ascending aorta is not well visualized. The IVC is not well visualized. Pericardium There is a moderate, circumferential pericardail effusion. Largest pocket is noted posteriorly measuring up to 1.5 cm in its largest dimension. No echo indications of tamponade. Other Information Study Quality: Fair Conclusion Normal biventricular systolic function. No significant valvular disease. Moderate, circumferential pericardial effusion. No echo indications of tamponade. Electronically signed by : Amairani Zhang, 02/05/2023 19:02:00
--- NOTE | 2023-02-04 14:40 | HMH.PHAINT1 ---
Pharmacy Intervention Comments: MEDICATION RECONCILIATION COMPLETED ON PATIENT USING EXTERNAL FILL HISTORY FROM PHARMACY. -MAYNOR MALONEY, CHRISTINAD
--- NOTE | 2023-02-04 14:42 | PC.NURSE ---
pt sleeping in bed, family at bs
--- NOTE | 2023-02-04 15:10 | PC.NURSE ---
report called SHERRELL aggarwal
--- NOTE | 2023-02-04 15:22 | PC.NURSE ---
pt just left er to go to [facility] [place]
--- NOTE | 2023-02-04 15:24 | PC.NURSE ---
arrived by stretcher from ED
--- NOTE | 2023-02-04 15:40 | EXP.HP ---
History of Present Illness *Admission Date: 02/04/23 *Reason for visit:: Falls, weakness *History of present illness: Mr. Beau krishnan is an 87-year-old male with history of CHF, hypertension, hypothyroidism, and weight loss. He was brought to the ER due to increasing weakness over the past 2 weeks. Over the past 24 hours she has fallen 3 times. He has been somewhat confused at home and not feeling well. On arrival to the ER, patient was found to be febrile with a temperature of 102.9. He is oriented to self only. Initial work-up with leukocytosis, grossly abnormal urine (UA positive for nitrates and leuk esterase), and elevated BNP. Meeting criteria for sepsis. Started on vancomycin and Zosyn. Urine culture obtained. Given 15 cc/kg bolus due to CHF history. Has had low blood pressures but no marce hypotension necessitating pressors. Given his symptoms of sepsis secondary to UTI, ER consulted medicine for admission and further management. After arriving to the floor, patient denies any pain but is tender in his lower abdomen. Family is at bedside helps supplement history. He denies any nausea, vomiting, diarrhea. No shortness of breath or chest pain. Of note, CT of his abdomen found incidentally a pericardial effusion. Patient is stable on room air and temperature has improved with treatment. Systolic blood pressure currently in the low 90s. [facility] Disclaimer: The information contained in this section may have been updated after the patient was seen, as this information can be updated by other users. Medical History HLD (hyperlipidemia) Hypertension Pneumonia Surgical History H/O heart artery stent Previous back surgery Social History Smoking Status: Never smoker alcohol intake: never current occupational status: retired Travel in the last 8 weeks: Inside the [place] household members: spouse housing: house current occupational exposures/hazards: No caffeine: No Review of Systems Review of Systems Review of systems (narrative): 14 point review of systems performed, pertinent positives and negatives as per HPI Constitutional Constitutional: Denies headache(s) and Reports weakness ENT Ears, Nose, Mouth, and Throat: Denies dizziness and Denies headache(s) *Musculoskeletal Musculoskeletal: Denies numbness and Denies tingling *Neurologic Neurologic: Denies dizziness, Denies headache(s), Denies numbness, Denies tingling and Reports weakness Meds Home Medications and Allergies Home Medications Medication Instructions Recorded Confirmed Type atorvastatin 20 mg tablet 20 mg PO HS Cholesterol 01/02/19 02/04/23 History levothyroxine 75 mcg tablet 75 mcg PO Q48H thyroid 01/02/19 02/04/23 History ropinirole 1 mg tablet 1 mg PO HS Restless Leg(S) 01/02/19 02/04/23 History trazodone 50 mg tablet 50 mg PO HS sleep 01/02/19 02/04/23 History tamsulosin 0.4 mg capsule 0.4 mg PO DAILY prostate 10/01/21 02/04/23 History apixaban 5 mg tablet 5 mg PO BID Blood Thinner/afib 10/02/21 02/04/23 History carvedilol 3.125 mg tablet 3.125 mg PO BID High Blood Pressure 10/02/21 02/04/23 History aspirin 81 mg capsule 81 mg PO DAILY heart health 02/04/23 02/04/23 History dronabinol 2.5 mg capsule 2.5 mg PO DAILY Appetite 02/04/23 02/04/23 History furosemide 40 mg tablet 20 mg PO HS Fluid 02/04/23 02/04/23 History furosemide 40 mg tablet 40 mg PO DAILY Fluid 02/04/23 02/04/23 History levothyroxine 75 mcg tablet 37.5 mcg PO Q48H Thyroid 02/04/23 02/04/23 History megestrol 20 mg tablet 20 mg PO BID Appetite 02/04/23 02/04/23 History omeprazole 20 mg capsule,delayed 20 mg PO DAILY Acid Reflux 02/04/23 02/04/23 History release prednisone 1 mg tablet 2 mg PO MOWEFR Steroid 02/04/23 02/04/23 History New Prescriptions to Start Prescriptions: Allergies Allergy/AdvReac
[2023-02-04 17:14] LABS: Troponin I 0.01 ng/ml (0.00-0.034)
--- NOTE | 2023-02-04 17:17 | PC.NURSE ---
pt new admit this shift. pt presents from the ED. pt alert to self. LS clear t/o. abdomen soft, nontender, bs active. pt skin c/d/i. pt does have a bruise to left posterior rib area. per report pt has had frequent falls at home. pt does have bed alarm in place. family has been at bedside. family did set up a password of [place]. call light w/i reach.
--- NOTE | 2023-02-04 18:34 | EXP.SEPSISRE ---
[facility] Tissue Perfusion Eval Sepsis Re-Evaluation Performed: Yes Date Performed: 02/04/23 Time Performed: 15:30
--- NOTE | 2023-02-04 20:19 | PC.NURSE ---
@1900 THE START OF THIS RN'S SHIFT, THIS PT'S LEVO GTT WAS INFUSING @ 4MCG/MIN. @ 1999 THIS RN TITRATED GTT FROM 4MCG/MIN TO 2MCG/MIN; BP 126/52 (76) @ 2014 BP 81/47 (56) WAITING FOR 2029 BP RESULT TO TITRATE GTT AGAIN PROPERLY.
--- NOTE | 2023-02-04 21:25 | PC.NURSE ---
LEVOPHED GTT WAS HANGING WHEN THEN RN CAME ONTO SHIFT @ 1900; WRONG ORDER WAS PLACED, [facility] UPDATED TO SHOW CORRECT ORDER / CONCENTRATION; 8MG IN 250ML HANGING ARELI FROM CARE CHANGED ORDER
[2023-02-05] VITALS (43 sets, daily range): BP systolic 79–154; BP diastolic 31–75; PULSE 65–105; RESP 18–21; TEMP 36.4–37.5; O2SAT 92–100; BMI 24.0; BMI 23.9
[2023-02-05 05:56] LABS: Basophils % 0.2 % (0.1-2.0); Eosinophils # 0.1 K/mm3 (0.0-0.4); Eosinophils % 0.5 % (0.1-12.0); Hematocrit 31.1 % (42.0-52.0); Hemoglobin 10.3 g/dL (14.1-18.0); Lymphocytes # 1.1 K/mm3 (0.7-4.5); Lymphocytes % 7.3 % (10-50); Mean Corpuscular HGB Conc 33.1 g/dL (31.8-35.4); Mean Corpuscular Hemoglobin 35.9 pg (27.0-31.2); Mean Corpuscular Volume 108.5 fl (80-94); Mean Platelet Volume 9.4 fl (7.4-10.4); Monocytes # 0.5 K/mm3 (0.1-1.0); Neutrophils # 13.8 K/mm3 (1.8-7.8); Neutrophils % 88.9 % (37.0-80.0); Platelet Count 253 K/mm3 (142-424); Red Blood Count 2.87 M/mm3 (4.60-6.20); Red Cell Distribution Width 15.2 % (11.5-17.5); White Blood Count 15.5 K/mm3 (4.8-10.8)
[2023-02-05 06:00] LABS: Chloride 104 mmol/L (98-107); Potassium 3.2 mmoL/L (3.5-5.1); Sodium 135 mmol/L (136-145)
[2023-02-05 06:01] LABS: MANUAL DIFFERENTIAL MANUAL DIFFERENTIAL (MANUAL DIFF)
[2023-02-05 06:03] LABS: Alanine Aminotransferase 21 U/L (12-78); Albumin Level 2.8 g/dl (3.5-5.0); Albumin/Globulin Ratio 0.8 (1.1-1.8); Alkaline Phosphatase 108 U/L (38-126); Anion Gap 11.2 mEq/L (5-15); Aspartate Amino Transferase 39 U/L (17-59); Bilirubin,Total 1.8 mg/dl (0.2-1.3); Blood Urea Nitrogen 11 mg/dl (9-20); Calcium 8.8 mg/dl (8.4-10.2); Carbon Dioxide 23 mmol/L (22.0-30.0); Creatine Kinase 247 U/L (55-170); Creatinine Clearance Estimated 54 mL/min (50-200); Estimated Glomerular Filt Rate 107 ml/min (>60); GFR (African American) 129 ML/MIN (>60); Globulin 3.5 g/dL (1.3-3.2); Glucose 104 mg/dl (74-100); Magnesium 1.6 mg/dl (1.6-2.3); Total Protein,Serum 6.3 g/dl (6.3-8.2)
[2023-02-05 06:46] LABS: Lymphocytes % 6 % (10-50); Monocytes % 3 % (2-9); Neutrophils % 91 % (42-76); Total Cells Counted 100
[2023-02-05 06:47] LABS: Anisocytosis 1+; Macrocytosis 1+; Ovalocytes 1+; Platelet Estimate Normal
--- NOTE | 2023-02-05 07:45 | PC.NURSE ---
Levo drip titrated to 4 mcg
--- NOTE | 2023-02-05 07:45 | PC.NURSE ---
levo drip titrated from 5 mcg/min to 4 mcg/min. bp currently 132/53.
--- NOTE | 2023-02-05 09:05 | EXP.ACUTE.PN ---
Subjective *Date: 02/05/23 *Time: 13:59 Interval history: Overnight remained stable on ambient air. No CP, JARVIS, N/V. complaining of dysuria this morning. Improved mentation. Weaning levophed this morning. Medical Exam Vital signs and Labs for Last 24 Hours: Vital Signs Temp Pulse Pulse Resp BP BP Pulse Ox 02/05/23 08:00 98.6 F 81 18 138/74 100 02/05/23 08:00 98 02/05/23 06:45 131/53 L 02/05/23 06:30 138/68 02/05/23 06:15 154/59 H 02/05/23 05:45 152/56 H 02/05/23 06:00 65 106/46 L 100 02/05/23 05:30 143/70 H 02/05/23 05:15 128/58 L 02/05/23 04:00 80 02/05/23 05:00 79 119/73 100 02/05/23 04:45 119/73 02/05/23 04:30 116/53 L 02/05/23 04:15 107/41 L 02/05/23 04:00 75 109/75 L 100 02/05/23 03:45 114/47 L 02/05/23 03:30 107/53 L 02/05/23 03:15 110/37 L 02/05/23 03:00 75 92/50 L 98 02/05/23 02:45 106/58 L 02/05/23 02:30 122/52 L 02/05/23 02:15 83/33 L 02/05/23 02:00 77 105/38 L 100 02/05/23 01:45 102/37 L 02/05/23 01:30 93/31 L 02/05/23 03:00 02/05/23 04:00 02/05/23 00:00 80 02/05/23 00:00 99.3 F 02/05/23 01:15 114/44 L 02/05/23 01:00 79 142/58 H 100 02/05/23 00:45 117/41 L 02/05/23 00:30 114/39 L 02/05/23 00:15 111/51 L 02/05/23 00:10 84/39 L 02/05/23 00:08 79/41 L 02/05/23 00:06 77 82/39 L 92 L 02/04/23 23:36 76/34 L 02/04/23 23:34 68/28 L 02/04/23 23:30 92/28 L 02/04/23 23:15 115/53 L 02/04/23 23:00 83 128/41 L 95 02/04/23 22:45 155/58 H 02/04/23 22:30 147/56 H 02/04/23 22:15 141/63 H 02/04/23 22:00 89 122/51 L 99 02/04/23 21:45 127/47 L 02/04/23 21:30 109/47 L 02/04/23 21:15 107/48 L 02/04/23 21:00 90 126/49 L 97 02/04/23 20:45 87/46 L 02/04/23 20:30 103/47 L 02/04/23 20:15 87/41 L 02/04/23 20:00 98.7 F 90 126/52 L 100 02/04/23 19:45 133/57 L 02/04/23 19:30 122/48 L 02/04/23 19:15 111/55 L 02/05/23 07:00 02/05/23 05:00 02/05/23 04:00 97.6 F 02/04/23 19:00 89 121/42 L 97 02/05/23 01:00 02/04/23 23:00 02/04/23 21:00 02/04/23 20:00 02/04/23 19:04 121/42 L 02/04/23 18:54 02/04/23 17:00 02/04/23 17:27 99 H 18 127/56 L 100 02/04/23 16:06 90 02/04/23 16:23 100 02/04/23 16:00 84 18 114/52 L 100 02/04/23 15:37 99.0 F 84 20 97/49 L 99 02/04/23 15:00 02/04/23 15:25 98.9 F 85 20 97/54 L 02/04/23 15:00 77 97/49 L 97 02/04/23 14:30 84 101/53 L 96 02/04/23 14:00 85 101/48 L 95 02/04/23 13:37 84 92/48 L 97 02/04/23 13:30 86 93/44 L 98 02/04/23 13:28 71 87/46 L 97 02/04/23 13:19 78 87/49 L 95 02/04/23 13:07 77 87/45 L 96 02/04/23 13:02 91 H 83/42 L 96 02/04/23 13:00 93 H 90/41 L 96 02/04/23 12:47 92 H 85/43 L 97 02/04/23 12:44 95 H 97/41 L 97 02/04/23 12:30 84 96/45 L 94 L 02/04/23 12:00 100 H 105/46 L 98 02/04/23 11:30 102 H 149/71 H 99 02/04/23 11:27 105 H 140/83 98 02/04/23 10:30 100 H 134/67 100 02/04/23 10:39 102.3 F H 02/04/23 10:01 98.1 F 102 H 18 147/73 H 99 O2 Del Method O2 Flow Rate 02/05/23 08:00 Room Air 02/05/23 08:00 Nasal Cannula 2 02/05/23 06:45 02/05/23 06:30 02/05/23 06:15 02/05/23 05:45 02/05/23 06:00 Nasal Cannula 2 02/05/23 05:30 02/05/23 05:15 02/05/23 04:00 02/05/23 05:00 Nasal Cannula 2 02/05/23 04:45 02/05/23 04:30 02/05/23 04:15 02/05/23 04:00 Nasal Cannula 2 02/05/23 03:45 02/05/23 03:30 02/05/23 03:15
--- NOTE | 2023-02-05 10:21 | PC.NURSE ---
Medical records requested from [facility]
--- NOTE | 2023-02-05 10:27 | EXP.CARD.CON ---
History of Present Illness History of Present Illness Consult date: 02/05/23 Requesting physician: Mikhail Mancilla Chief complaint: weakness, UTI, pericardial effusion History of present illness: Mr. Abernathy is an 87-year-old male with history CAD with medical management September,, PAF on Eliquis, historically normal EF, htn and hypothyroidism was brought to ER due to increasing weakness over the past 2 weeks. Over the past 24 hours he has fallen 3 times. He has been somewhat confused at home and not feeling well. On arrival to the ER, patient was found to be febrile with a temperature of 102.9 and oriented to self only. Initial work-up with leukocytosis, grossly abnormal urine (UA positive for nitrates and leuk esterase), and elevated BNP and meeting criteria for sepsis. Started on vancomycin and Zosyn. Urine culture obtained. Given 15 cc/kg bolus. Has had low blood pressures but no marce hypotension necessitating pressors. Given his symptoms of sepsis secondary to UTI, ER consulted medicine for admission and further management. After arriving to the floor, patient denies any pain but is tender in his lower abdomen. Family is at bedside helps supplement history. He denies any nausea, vomiting, diarrhea. No shortness of breath or chest pain. Of note, CT of his abdomen found incidentally a pericardial effusion. Patient is stable on room air and temperature has improved with treatment. Systolic blood pressure currently in the low 90s. Cardiology asked to consult for pericardia effusion [facility] Disclaimer: The information contained in this section may have been updated after the patient was seen, as this information can be updated by other users. Medical History HLD (hyperlipidemia) Hypertension Pneumonia Surgical History H/O heart artery stent Previous back surgery Social History Smoking Status: Never smoker alcohol intake: never current occupational status: retired Travel in the last 8 weeks: [place] the [place] household members: spouse housing: house current occupational exposures/hazards: No caffeine: No Review of Systems Review of Systems Review of systems:: pertinent systems reviewed and negative unless documented below Constitutional Constitutional: Denies headache(s) and Reports weakness ENT Ears, Nose, Mouth, and Throat: Denies dizziness and Denies headache(s) *Musculoskeletal Musculoskeletal: Denies numbness and Denies tingling *Neurologic Neurologic: Denies dizziness, Denies headache(s), Denies numbness, Denies tingling and Reports weakness Exam Data for Last 24 hours Vital signs and Labs for Last 24 Hours: Temp Pulse Resp BP Pulse Ox O2 Del Method O2 Flow Rate 98.6 F 82 18 111/45 L 96 Room Air 2 02/05/23 08:00 02/05/23 10:02 02/05/23 10:02 02/05/23 10:02 02/05/23 10:02 02/05/23 10:02 02/05/23 08:00 Laboratory Results - last 24 hr 02/04/23 10:10: WBC 16.5 H, RBC 3.14 L, Hgb 11.2 L, Hct 34.4 L, MCV 109.7 H, MCH 35.7 H, MCHC 32.5, RDW 15.1, Plt Count 257, MPV 9.4, Neut % (Auto) 86.7 H, Lymph % (Auto) 8.6 L, [place] % (Auto) 3.6, Eos % (Auto) 0.8, Baso % (Auto) 0.3, Neut # (Auto) 14.3 H, Lymph # (Auto) 1.4, [place] # (Auto) 0.6, Eos # (Auto) 0.1, Baso # (Auto) 0.1, Total Counted 100, Neutrophils % (Manual) 81 H, Lymphocytes % (Manual) 16, Monocytes % (Manual) 3, Platelet Estimate Normal, Macrocytosis 2+, Sodium 136, Potassium 3.7, Chloride 102, Carbon Dioxide 25, Anion Gap 12.7, BUN 16, Creatinine 0.70, Estimated Creat Clear 51, Estimated GFR 107, Est GFR ( Amer) 129, Glucose 103 H, Calcium 9.4, Total Bilirubin 2.2 H, AST 56, ALT 31, Alkaline Phosphatase 110, Total Creatine Kinase 714 H*, Troponin I < 0.01, NT-Pro-B Natriuret Pep 1930 H, Total Protein 7.5, Albumin 3.6, Globulin 3.9 H, Albumin/Globulin Ratio 0.9 L, TSH 1.50,
--- NOTE | 2023-02-05 11:16 | SW/DCPLANNER ---
Addendum entered by Dana Croft 02/06/23 10:21: I have updated [facility]en/ [facility]: the plan for this patient is to discharge tomorrow pending no setbacks on PO antibiotics. Addendum entered by Dana Croft 02/05/23 13:50: [facility]/ [facility] stated that she can accept this patient once medically stable for discharge. Akiko also stated that she can accept this patient if medically stable over the weekend (Thursday or Thursday). Original Note: PT/OT evaluated this patient and recommended SNF level of care. Patient currently resides at home w/ his . Family was present in the room at the time of my visit. Family is agreeable to placement and prefers [facility]. [facility]iko pedersen/ [facility] stated they do have beds available. Patient information has been faxed to [facility]. I will continue to follow up with patient, family, and [facility]. Discharge date is unknown at this time.
--- NOTE | 2023-02-05 11:47 | HMH.PTEV ---
Physical Therapy Evaluation Rehab PT IP Evaluation Start: 02/05/23 09:01 Freq: ONCE Status: Active Protocol: Document 02/05/23 11:41 PHORNE (Rec: 02/05/23 11:47 PHORNE [id number]) Subjective/History History History 87 yowm adm to [facility] with sepsis and fever. He has hx of CHF, HTN, HLD, hypothyoid. He presents somewhat pelasantly confused this am. He reports he lives with family, uses a cane for mobility at baseline, and is unsure of his status previously with ADLs. Family present in the room and report he lives with spouse, 1 step to enter the home, does use a cane at baseline and is generally independent with all mobility and not confused at baseline. Subjective Subjective Pt c/o feeling stiff and sore this morning all over. Rehab PT IP Eval Objective Appearance Patient Behavior Appropriate Patient Orientation Person,Place Difficulty following instructions mild Speech Pattern Clear Ambulation Patient Able to Ambulate No Balance Ability to Arise Able, uses arms to help Sitting Balance Steady, safe Standing Balance Steady, wide stance Dynamic Sitting Balance Ability Fair Dynamic Standing Balance Ability Fair Transfers Bed Transfer Ability Moderate x 1 (50% assist) Chair Transfer Ability Minimal x 1 (25% assist) Sit to Stand Bed Transfer Ability Minimal x 1 (25% assist) Sit to Stand Chair Transfer Ability Minimal x 1 (25% assist) ROM All Extremities PT ROM Status WFL Abnormal ROM Comment except B SHLD flex/abd to 90 deg only MMT All Extremities PT MMT WFL Rehab PT IP prob,goals,plan Problems Date of Evaluation: 02/05/23 PT IP Problems Bed Mobility,Transfers,Gait Rehab Potential Rehab Potential Good Plan PT Intervention Plan Bed Mobility,Transfers,Gait, Therapeutic Exercise PT Plan Frequency Daily Duration LOS Discharge Goals Bed Transfer Ability Minimal x 1 (25% assist) Sit to Stand Chair Transfer Ability Contact Guard/Hand Hold Ambulation Assistive Device Rolling Walker Ambulation Distance (feet) 20 Discharge Plan PT Discharge Plan
[2023-02-05 12:33] LABS: PTT Heparin (inpatient only) 37.9 Seconds (23.6-34.0)
--- NOTE | 2023-02-05 13:41 | HMH.OTEV ---
OT Inpatient Evaluation Rehab OT IP Evaluation Start: 02/05/23 09:01 Freq: ONCE Status: Active Protocol: [facility]23 [facility] (Rec: 02/05/23 13:41 [facility] [id number]) Rehab OT IP Assessment Subjective History Pt oriented to self. 87 yowm adm to [facility] with sepsis and fever. He has hx of CHF, HTN, HLD, hypothyoid. He presents somewhat pelasantly confused this am. He reports he lives with family, uses a cane for mobility at baseline. Son reports normally he is independent with ADLs, but relies on his for completion of all IADLS. Family present in the room and report he lives with spouse, 1 step to enter the home, does use a cane at baseline and is generally independent with all mobility and not confused at baseline. [ End ] Subjective Oh i'm sore. Objective Patient Orientation Person Upper Extremity Gross ROM WFL Bed Mobility bed mobility-scooting,bed mobility - supine/sit,bed mobility - rolling Assist Level Moderate x 2 (50% assist) Transfer Training Sit/Stand Transfer,Sit/Stand/ Step Transfer Assist Level Moderate x 2 (50% assist) Chair Transfer Ability Moderate x 2 (50% assist) Chair Transfer Technique Stand Step Pivot Performing Toilet Hygiene Ability Unable/Dependant Rehab OT IP prob,goals,plan Problems Date of Evaluation: 02/05/23 OT IP Problems Bed Mobility,Transfers,Balance ,Self care,Safety Rehab Potential Rehab Potential Good Equipment Needs Assistive Devices Rolling / Wheeled Walker Plan OT intervention Plan Bed Mobility,Transfers,Balance ,Self care,Safety,Therapeutic Exercise OT Plan Frequency BID Duration LOS Discharge Goals Bed Mobility Ability Assistance x1 Sit to Stand Chair Transfer Ability Minimal x 1 (25% assist) Chair Transfer Ability Minimal x 1 (25% assist) Chair Transfer Technique Sit to/from Ambulatory Chair Transfer Assistive Devices Rolling Walker F
--- NOTE | 2023-02-05 14:31 | DIET.NUTRFU ---
RD consulted secondary to low brice score of 12, upon interview patient was very agitated. Asked family PMH, they report poor appetite over past 2-3 weeks with questionable wt loss. Refused most of lunch. Will add ensure with trays for extra nutrition and continue to follow POC. Family is looking for placement upon discharge.
[2023-02-05 15:06] LABS: Adenovirus F 40/41, stool Not Detected (NotDetected); Astrovirus Not Detected (NotDetected); Campylobacter Not Detected (NotDetected); Clostridium Difficile A/B, PCR Not Detected (NotDetected); Cryptosporidium Not Detected (NotDetected); Cyclospora Cayetanesis Not Detected (NotDetected); Entamoeba histolytica Not Detected (NotDetected); Enteroaggregative E coli Not Detected (NotDetected); Enteropathogenic E coli Not Detected (NotDetected); Enterotoxigenic E coli Not Detected (NotDetected); Giardia lamblia Not Detected (NotDetected); Norovirus Not Detected (NotDetected); Plesimonas Shigalloides, PCR Not Detected (NotDetected); Rotavirus A Not Detected (NotDetected); Salmonella, PCR Not Detected (NotDetected); Sapovirus Not Detected (NotDetected); Shiga-like toxin E coli Not Detected (NotDetected); Shigella Enterovasive E coli Not Detected (NotDetected); Vibrio Cholerae Not Detected (NotDetected); Vibrio, PCR Not Detected (NotDetected); Yersinia Entercolitica, PCR Not Detected (NotDetected)
--- NOTE | 2023-02-05 15:18 | HMH.PHAHEP ---
[facility] Pharmacy Heparin Dosing Demographic Data Admission date:: 02/04/23 Date: 02/05/23 Time: 15:18 Allergies Allergy/AdvReac Type Severity Reaction Status Date / Time clindamycin Allergy Verified 02/04/23 10:15 daptomycin Allergy Verified 02/04/23 10:15 Height: 1.73 m Weight: 71.75 kg Indication Medication therapy:: Heparin Current Active Problems (Updated 02/05/23 @ 14:15 by Mikhail Mancilla MD) Pericardial effusion (Acute) (HFpEF) heart failure with preserved ejection fraction (Chronic) BPH (benign prostatic hyperplasia) (Chronic) UTI (urinary tract infection) (Acute) Sepsis (Acute) Weakness (Acute) Coronary artery disease (Chronic) Hyperlipidemia (Chronic) Paroxysmal atrial fibrillation (Chronic) GERD (gastroesophageal reflux disease) (Chronic) CVA?: No Bleeding problem?: No Kidney disease?: No MO?: No Desired PTT range:: 50-75 seconds Labs Anticoagulation Lab Results:: 02/05/23 05:30 Hgb 10.3 L Hct 31.1 L Plt Count 253 Monitoring Dose Monitor 1: Date: 02/05/23 Time: 18:00 PTT Result:: 37.9 Infusion Rate:: 1,400 UNITS/HR Comment:: PATIENT RECEIVED ELIQUIS @0830 Dose Monitor 2: Date: 02/06/23 Time: 00:00 PTT Result:: 129.4 Infusion Rate:: DECREASE RATE TO 1,200 UNITS/HR Dose Monitor 3: Date: 02/06/23 Time: 02:35 PTT Result:: 145.3 Infusion Rate:: DECREASE RATE TO 1,000 UNITS/HR Dose Monitor 4: Date: 02/06/23 Time: 05:00 PTT Result:: 126.7 Infusion Rate:: DECREASE RATE TO 800 UNITS/HR Dose Monitor 5: Date: 02/06/23 Time: 09:00 PTT Result:: 81.8 Infusion Rate:: DECREASE RATE TO 750 UNITS/HR Dose Monitor 6: Date: 02/06/23 Time: 15:00 PTT Result:: 56.4 Comment:: HEPARIN DRIP STOPPED AND SWITCHED TO ELIQUIS Core Measures Is INR > or = 2 at discharge?: No Most Recent Labs:: Laboratory Results - last 24 hr 02/04/23 10:39: Urine Color Yellow, Urine Appearance Clear, Urine pH 6.5, Ur Specific [place] 1.020, Urine Protein 1+, Urine Glucose (UA) Negative, Urine Ketones Negative, Urine Blood 2+, Urine Nitrate Positive, Urine Bilirubin Negative, Urine Urobilinogen >=8.0, Ur Leukocyte Esterase 1+ A, Urine RBC 3-5, Urine WBC 5-10, Ur Squamous Epith Cells Occasional, Urine Bacteria 2+ 02/04/23 16:35: Troponin I 0.01 02/05/23 05:30: WBC 15.5 H, RBC 2.87 L, Hgb 10.3 L, Hct 31.1 L, MCV 108.5 H, MCH 35.9 H, MCHC 33.1, RDW 15.2, Plt Count 253, MPV 9.4, Neut % (Auto) 88.9 H, Lymph % (Auto) 7.3 L, [place] % (Auto) 3.0, Eos % (Auto) 0.5, Baso % (Auto) 0.2, Neut # (Auto) 13.8 H, Lymph # (Auto) 1.1, [place] # (Auto) 0.5, Eos # (Auto) 0.1, Baso # (Auto) 0.0, Total Counted 100, Neutrophils % (Manual) 91 H, Lymphocytes % (Manual) 6 L, Monocytes % (Manual) 3, Platelet Estimate Normal, Anisocytosis 1+, Macrocytosis 1+, Ovalocytes 1+, Sodium 135 L, Potassium 3.2 L, Chloride 104, Carbon Dioxide 23, Anion Gap 11.2, BUN 11 D, Creatinine 0.70, Estimated Creat Clear 54, Estimated GFR 107, Est GFR ( Amer) 129, Glucose 104 H, Calcium 8.8, Magnesium 1.6, Total Bilirubin 1.8 H, AST 39 D, ALT 21 D, Alkaline Phosphatase 108, Total Creatine Kinase 247 H D, Total Protein 6.3, Albumin 2.8 L D, Globulin 3.5 H, Albumin/Globulin Ratio 0.8 L 02/05/23 11:50: APTT 37.9 H Were Heparin and Warfarin started on the same day?: No If not, why?: SWITCHED TO ELIQUIS
--- NOTE | 2023-02-05 16:15 | PC.NURSE ---
pt alert to self and where he is this shift. pt has been more awake day and did work with therapy to get up to the chair for a few hours. pt lung sounds clear. abdomen soft, nontender, bs active. pt has had 3 bowel movements so far this shift, stool panel sent. pt has c/o burning with urination. pt voiding per external catheter. urine orange in color d/t Pyridium. pt's levophed drip infusing at 2 mcg/min at this time. pt to start Heparin drip at 1800. pt did have his bath this shift. call light w/i reach.
--- NOTE | 2023-02-05 23:11 | PC.NURSE ---
titrated levophed gtt to 1 mcg/min at this time.
[2023-02-06] VITALS (16 sets, daily range): BP systolic 79–129; BP diastolic 36–73; PULSE 88–110; RESP 19–24; TEMP 36.6–37.4; O2SAT 93–100; BMI 23.9
[2023-02-06 01:00] LABS: PTT Heparin (inpatient only) 129.4 Seconds (23.6-34.0)
--- NOTE | 2023-02-06 01:10 | PC.NURSE ---
Spoke with Pharmacy, aptt 129. Orderes received to decreast gtt to 1200 units/hr and re-check ptt in 1 hour.
--- NOTE | 2023-02-06 01:14 | PC.NURSE ---
Heparin gtt decreased to 1200 units/hr and levophed gtt titrated to 0.5 mcg/min at this time
--- NOTE | 2023-02-06 01:28 | PC.NURSE ---
levophed gtt titrated to 0..5 mcg/min at this time
--- NOTE | 2023-02-06 02:49 | PC.NURSE ---
Levophed gtt d/c at this time.
[2023-02-06 03:16] LABS: PTT Heparin (inpatient only) 145.3 Seconds (23.6-34.0)
--- NOTE | 2023-02-06 03:21 | PC.NURSE ---
Spoke with [facility] pharmacy regarding aptt level of 145. orders received to decrease heparin gtt to 1000 units/hr. verified slava rouse rn
--- NOTE | 2023-02-06 03:42 | PC.NURSE ---
0315- Levophed gtt turned on @ 1 mcg/min 0342- Levophed titrated to 1.5mcg/min
--- NOTE | 2023-02-06 06:29 | PC.NURSE ---
levophed gtt titrated to 2 mcg/min
--- NOTE | 2023-02-06 07:00 | PC.NURSE ---
Levophed gtt titrated to 1.5 mcg/min
[2023-02-06 07:10] LABS: PTT Heparin (inpatient only) 126.7 Seconds (23.6-34.0)
--- NOTE | 2023-02-06 07:15 | PC.NURSE ---
Pharmacy called about aptt of 126.7. orders received to decrease heparin gtt to 800 units/hr. Decreased at this time and verified with Waqas Boucher RN
--- NOTE | 2023-02-06 08:28 | PC.NURSE ---
levo turned off at this time per Dr. Mancilla
--- NOTE | 2023-02-06 08:37 | CA_ITS ---
APPROVED REPORT EXAM: Limited 2D Echocardiogram Ski Patroller: Pamela Gomez RCS, RVS Ht: 5 ft 8 in Wt: 157lbs BSA: 1.84 BP: 114/50 mmHg Indications: PERICARDIAL EFFUSION CHECK FROM 02/04/23 Other Information Study Quality: Adequate Conclusion This is a limited study to evaluate for pericardial effusion. Limited windows were obtained. There is a moderate-sized, circumferential pericardial effusion noted. The largest pocket is located posteriorly and measures up to 1.7 cm in diastole. There is no evidence of respirophasic variation of mitral or tricuspid valve inflow. The IVC is normal in size and collapsible > 50%. Overall, there are no echo indications of tamponade. Compared to prior study on 02/04/2023, the pericardial effusion appears slightly increased in size (specifically posteriorly), but overall still appears in the moderate range and with no tamponade features on echo. Follow-up is recommended. Electronically signed by : Amairani Zhang, 02/06/2023 11:21:01
--- NOTE | 2023-02-06 09:26 | PC.NURSE ---
courtesy tech note: pt rounded on and assisted on the bedpan. Pt family at bedside. No further requests at this time.
[2023-02-06 09:46] LABS: Basophils % 0.3 % (0.1-2.0); Eosinophils # 0.1 K/mm3 (0.0-0.4); Eosinophils % 2.3 % (0.1-12.0); Hematocrit 30.6 % (42.0-52.0); Hemoglobin 9.9 g/dL (14.1-18.0); Lymphocytes # 0.6 K/mm3 (0.7-4.5); Lymphocytes % 10.1 % (10-50); Mean Corpuscular HGB Conc 32.3 g/dL (31.8-35.4); Mean Corpuscular Volume 111.3 fl (80-94); Mean Platelet Volume 9.3 fl (7.4-10.4); Monocytes # 0.1 K/mm3 (0.1-1.0); Neutrophils # 5.1 K/mm3 (1.8-7.8); Neutrophils % 85.3 % (37.0-80.0); Platelet Count 172 K/mm3 (142-424); Red Blood Count 2.75 M/mm3 (4.60-6.20); Red Cell Distribution Width 15.3 % (11.5-17.5)
[2023-02-06 09:57] LABS: MANUAL DIFFERENTIAL MANUAL DIFFERENTIAL (MANUAL DIFF)
--- NOTE | 2023-02-06 10:11 | DIET.NUTRFU ---
RD consult received for diet instruction. RD visited with pt yesterday with family at bedside. Ensure added to trays TID. High, calorie/high, protein diet education has been added to pt discharge packet for additional education.
[2023-02-06 10:16] LABS: PTT Heparin (inpatient only) 81.8 Seconds (23.6-34.0)
--- NOTE | 2023-02-06 10:21 | EXP.CARD.PN ---
Subjective Subjective Date: 02/06/23 Time: 08:00 Principal diagnosis: sepsis, uti, pericardial effusion Interval history: Doing well this morning, denies complaints. More alert and oriented today. Vitals stable. Morning labs reviewed. Exam Data for Last 24 hours Vital signs and Labs for Last 24 Hours: Temp Pulse Resp BP Pulse Ox O2 Del Method O2 Flow Rate 98 F 90 22 119/62 96 Room Air 2 02/06/23 08:00 02/06/23 06:00 02/06/23 06:00 02/06/23 06:00 02/06/23 06:00 02/06/23 07:00 02/05/23 08:00 Laboratory Results - last 24 hr 02/05/23 11:50: APTT 37.9 H 02/05/23 14:45: Stl Aeromonas (PCR) Not detected, Stl C. cayetanensis PCR Not detected, Stool Rotavirus (PCR) Not detected, Stl Adenov F 40/41 PCR Not detected, Stool Astrovirus (PCR) Not detected, Stool Campylobacter PCR Not detected, Stl C.difficile Tox PCR Not detected, Stool Cryptosporidium PCR Not detected, Stl E.coli Shiga Tox PCR Not detected, Stool E coli O157 PCR Not detected, Stl Enterotoxigenic E PCR Not detected, Stool EPEC (PCR) Not detected, Stool EAEC (PCR) Not detected, Stl E. histolytica PCR Not detected, Stool Giardia Lamblia PCR Not detected, Stool Salmonella PCR Not detected, Stool Sapovirus (PCR) Not detected, Stl P. shigelloides PCR Not detected, Stl Shigella/EIEC PCR Not detected, St Y.enterocolitica PCR Not detected, Stool Vibrio (PCR) Not detected, Stl Vibrio cholerae PCR Not detected, Stl Norovirus GI/GII PCR Not detected 02/06/23 00:10: APTT 129.4 H* 02/06/23 02:35: APTT 145.3 H* 02/06/23 05:35: APTT 126.7 H* 02/06/23 09:38: WBC 6.0 D, RBC 2.75 L, Hgb 9.9 L, Hct 30.6 L, MCV 111.3 H, MCH 36.0 H, MCHC 32.3, RDW 15.3, Plt Count 172 D, MPV 9.3, Neut % (Auto) 85.3 H, Lymph % (Auto) 10.1, [place] % (Auto) 2.0, Eos % (Auto) 2.3, Baso % (Auto) 0.3, Neut # (Auto) 5.1, Lymph # (Auto) 0.6 L, [place] # (Auto) 0.1, Eos # (Auto) 0.1, Baso # (Auto) 0.0, APTT 81.8 H* I & O for Last 24 hours: Intake & Output 02/03/23 02/04/23 02/05/23 02/06/23 23:59 23:59 23:59 23:59 Intake Total 768.297 / 633.915 9166.560 / 3226.560 1456 / 1456 Output Total 300 / 300 1150 / 1150 Balance 468.297 / 661.848 2288.560 / 2076.560 1456 / 1456 Weight 151 lb 9 oz 158 lb 2.907 oz 157 lb 12.8 oz Microbiology Reports for the Last 24 Hours: Microbiology 02/04/23 10:39 Urine,Catheterized Urine Culture - Final Escherichia coli Constitutional Constitutional: no acute distress *Routine Respiratory Exam Respiratory: Present CTA bilaterally and symmetric chest movement *Routine Cardiovascular Exam Cardiovascular: Present RRR, Normal S1 and Normal S2 *Routine Abdominal Exam Abdominal: Present soft and normoactive bowel sounds; Absent tenderness *Routine Extremities Exam Extremities: Present full ROM and normal capillary refill; Absent edema *Routine Skin Exam Skin: Present intact, dry and warm Detailed Neck Exam: Thyroids Thyroid: Absent bruit Progress Note: A&P Assessment and plan (1) Pericardial effusion: Status: Acute (2) (HFpEF) heart failure with preserved ejection fraction: Status: Chronic (3) Paroxysmal atrial fibrillation: Status: Chronic (4) Hyperlipidemia: Status: Chronic (5) Coronary artery disease: Status: Chronic Assessment and Plan Assessment and Plan for All Diagnoses:: Pericardial Effusion -Noted on cta of chest 02/04/2023- 2 cm in depth -Echo 09/2021 EF 55. Repeat shows normal biventricular systolic function and a moderate 1.5 cm circumferential pericardial effusion. Official read is pending -No plan for intervention at this time. Recommend repeating limited echo today if patient becomes hemodynamically unstable. Repeat limited tomorrow to check status of pericardial effusion. 02/06/2023: Patient remains hemodynamically stable. Vitals remained stable. Repeat limited echo pending this morning Hx of HFpEF -Historically normal EF, mild LVH- repeat pending -Currently no signs of volume ov
[2023-02-06 10:26] LABS: Lymphocytes % 19 % (10-50); Monocytes % 1 % (2-9); Neutrophils % 80 % (42-76); Total Cells Counted 100
[2023-02-06 10:27] LABS: Macrocytosis 2+; Platelet Estimate Normal
--- NOTE | 2023-02-06 10:27 | PC.NURSE ---
heparin gtt decreased to 750 units/hr per pharmacy at this time
[2023-02-06 11:17] LABS: Chloride 105 mmol/L (98-107)
[2023-02-06 11:18] LABS: Potassium 3.6 mmoL/L (3.5-5.1); Sodium 133 mmol/L (136-145)
[2023-02-06 11:20] LABS: Alanine Aminotransferase 27 U/L (12-78); Alkaline Phosphatase 77 U/L (38-126); Anion Gap 13.6 mEq/L (5-15); Aspartate Amino Transferase 46 U/L (17-59); Bilirubin,Total 0.8 mg/dl (0.2-1.3); Blood Urea Nitrogen 9 mg/dl (9-20); Carbon Dioxide 18 mmol/L (22.0-30.0); Creatinine Clearance Estimated 54 mL/min (50-200); Estimated Glomerular Filt Rate 128 ml/min (>60); GFR (African American) 155 ML/MIN (>60)
[2023-02-06 11:21] LABS: Albumin Level 2.3 g/dl (3.5-5.0); Albumin/Globulin Ratio 0.8 (1.1-1.8); Calcium 8.2 mg/dl (8.4-10.2); Glucose 111 mg/dl (74-100); Magnesium 1.7 mg/dl (1.6-2.3); Total Protein,Serum 5.3 g/dl (6.3-8.2)
[2023-02-06 15:30] LABS: PTT Heparin (inpatient only) 56.4 Seconds (23.6-34.0)
--- NOTE | 2023-02-06 15:33 | PC.NURSE ---
Per pharmacy. No changes to Heparin gtt.
--- NOTE | 2023-02-06 15:51 | PC.NURSE ---
Heparin gtt DC.
--- NOTE | 2023-02-06 17:39 | EXP.ACUTE.PN ---
Subjective *Date: 02/06/23 *Time: 19:18 Interval history: Patient interactive and alert this morning. Son at bedside. Patient stable on room air. Blood pressure stable on morning rounds. We will discontinue Levophed. Denies any nausea or vomiting. Tolerated portions of his breakfast today. Remains afebrile. Improvement in urine output, denies dysuria today Medical Exam Vital signs and Labs for Last 24 Hours: Vital Signs Temp Pulse Pulse Pulse Resp BP Pulse Ox 02/06/23 12:00 100 H 02/06/23 16:55 02/06/23 15:56 97.9 F 02/06/23 15:44 96 H 19 129/72 98 02/06/23 15:38 02/06/23 15:00 02/06/23 14:00 98 H 22 103/73 L 96 02/06/23 08:00 02/06/23 12:46 02/06/23 12:00 88 20 110/56 L 97 02/06/23 10:00 91 H 20 103/44 L 100 02/06/23 08:00 92 H 20 122/49 L 96 02/06/23 12:00 97.9 F 02/06/23 08:00 93 H 02/06/23 08:00 98 F 02/06/23 07:00 02/06/23 06:00 90 22 119/62 96 02/06/23 04:00 100 H 02/06/23 05:00 02/06/23 04:00 02/06/23 04:00 98.7 F 105 H 21 111/65 96 02/06/23 03:14 102 H 22 79/36 L 93 L 02/06/23 03:00 02/06/23 03:10 102 H 22 80/40 L 93 L 02/06/23 02:30 104 H 21 116/42 L 94 L 02/06/23 02:00 101 H 24 98/43 L 95 02/06/23 01:30 109 H 24 127/66 95 02/06/23 01:00 02/06/23 00:00 100 H 02/06/23 00:00 99.3 F 102 H 21 107/50 L 97 02/05/23 23:00 02/05/23 23:00 100 H 20 115/49 L 96 02/05/23 22:00 98 H 20 105/47 L 96 02/05/23 20:00 99.5 F 100 H 21 92/34 L 96 02/05/23 20:00 100 H 02/05/23 21:00 02/05/23 20:00 02/05/23 18:40 96 H 18 114/48 L 98 02/05/23 18:36 02/05/23 18:19 105 H 18 103/43 L 98 O2 Del Method 02/06/23 12:00 02/06/23 16:55 Room Air 02/06/23 15:56 02/06/23 15:44 Room Air 02/06/23 15:38 Room Air 02/06/23 15:00 Room Air 02/06/23 14:00 Room Air 02/06/23 08:00 Room Air 02/06/23 12:46 Room Air 02/06/23 12:00 Room Air 02/06/23 10:00 Room Air 02/06/23 08:00 Room Air 02/06/23 12:00 02/06/23 08:00 02/06/23 08:00 02/06/23 07:00 Room Air 02/06/23 06:00 Room Air 02/06/23 04:00 02/06/23 05:00 Room Air 02/06/23 04:00 Room Air 02/06/23 04:00 Room Air 02/06/23 03:14 Room Air 02/06/23 03:00 Room Air 02/06/23 03:10 Room Air 02/06/23 02:30 Room Air 02/06/23 02:00 Room Air 02/06/23 01:30 Room Air 02/06/23 01:00 Room Air 02/06/23 00:00 02/06/23 00:00 Room Air 02/05/23 23:00 Room Air 02/05/23 23:00 Room Air 02/05/23 22:00 Room Air 02/05/23 20:00 Room Air 02/05/23 20:00 02/05/23 21:00 Room Air 02/05/23 20:00 Room Air 02/05/23 18:40 Room Air 02/05/23 18:36 Room Air 02/05/23 18:19 Room Air Intake and Output 02/06/23 02/06/23 02/06/23 07:59 15:59 23:59 Intake Total 1455 / 1970 Balance 1455 Intake: Intake, Oral Amount 240 / 240 Intake, Total IV Amount 1456 / 1731 275 / 1731 Ceftriaxone 1 gm 1 gm In 0.9 % 50 / 50 Sodium Chloride 50 ml @ 100 mls /hr IV Q24H [facility] Rx#:[id number] Heparin Sodium,Porcine/D5w 500 284 / 448 164 / 448 ml @ 800 UNITS/HR 16 mls/hr IV .Q25H [facility] Rx#:[id number] Lactated Ringers 1000ML 1,000 1044 / 1105 61 / 1105 ml @ 100 mls/hr IV .Q10H [facility] Rx #:[id number] Norepinephrine Bitartrate 8 mg 28 / 28 In Dextrose 5 % in Water 250 ml @ 2 MCG/MIN 3.87 mls/hr IV . Q24H [facility] Rx#:[id number] Piperacillin/Tazo 4.5 gm In 0.9 100 / 100 % Sodium Chloride 100 ml @ 200 mls/hr IV Q6H [facility] Rx#:[id number] Other: Number of Unmeasured Voids 0 Weight 71.577 kg Patient Weight 02/06/23 23:59 Weight 71.577 kg Laboratory Results - last 24 hr 02/05/23 14:45: Stl Aeromonas (PCR) Not detected, Stl C. cayetanensis PCR
--- NOTE | 2023-02-06 18:31 | PC.NURSE ---
Pt has been up to the chair this afternoon. Currently back in bed. Pt is alert to self. No complaints stated. Family has remained at pt's side. BP has remained stable this afternoon. Pt transferred out of step down. Heparin gtt DC. Eliquis will be restarted. Call light within reach. Safety measures in place.
[2023-02-07] VITALS: BP 120/59; PULSE 104; RESP 22; TEMP 37.1; O2SAT 96
[2023-02-07 04:00] VITALS: BP 115/72; PULSE 101; RESP 20; TEMP 37.1; O2SAT 97; BMI 25.0
[2023-02-07 07:09] LABS: Basophils % 0.5 % (0.1-2.0); Eosinophils # 0.2 K/mm3 (0.0-0.4); Eosinophils % 4.8 % (0.1-12.0); Hemoglobin 9.6 g/dL (14.1-18.0); Lymphocytes # 0.8 K/mm3 (0.7-4.5); Lymphocytes % 22.3 % (10-50); Mean Corpuscular HGB Conc 31.9 g/dL (31.8-35.4); Mean Corpuscular Hemoglobin 34.6 pg (27.0-31.2); Mean Corpuscular Volume 108.5 fl (80-94); Mean Platelet Volume 9.1 fl (7.4-10.4); Monocytes # 0.3 K/mm3 (0.1-1.0); Monocytes % 7.9 % (1.7-9.3); Neutrophils # 2.4 K/mm3 (1.8-7.8); Neutrophils % 64.5 % (37.0-80.0); Platelet Count 239 K/mm3 (142-424); Red Blood Count 2.76 M/mm3 (4.60-6.20); Red Cell Distribution Width 15.4 % (11.5-17.5); White Blood Count 3.7 K/mm3 (4.8-10.8)
[2023-02-07 07:16] LABS: Chloride 106 mmol/L (98-107); Potassium 4.2 mmoL/L (3.5-5.1); Sodium 134 mmol/L (136-145)
[2023-02-07 07:18] LABS: Blood Urea Nitrogen 6 mg/dl (9-20); Creatinine Clearance Estimated 56 mL/min (50-200); Estimated Glomerular Filt Rate 158 ml/min (>60); GFR (African American) 191 ML/MIN (>60)
[2023-02-07 07:19] LABS: Alanine Aminotransferase 29 U/L (12-78); Albumin Level 2.4 g/dl (3.5-5.0); Albumin/Globulin Ratio 0.7 (1.1-1.8); Alkaline Phosphatase 79 U/L (38-126); Anion Gap 10.2 mEq/L (5-15); Aspartate Amino Transferase 57 U/L (17-59); Bilirubin,Total 0.7 mg/dl (0.2-1.3); Calcium 8.5 mg/dl (8.4-10.2); Carbon Dioxide 22 mmol/L (22.0-30.0); Creatine Kinase 172 U/L (55-170); Globulin 3.4 g/dL (1.3-3.2); Glucose 85 mg/dl (74-100); Magnesium 1.6 mg/dl (1.6-2.3); Total Protein,Serum 5.8 g/dl (6.3-8.2)
[2023-02-07 08:00] VITALS: BP 102/67; PULSE 103; RESP 18; TEMP 36.4; O2SAT 98
--- NOTE | 2023-02-07 08:02 | EXP.DC.SUM ---
General Admission date:: 02/04/23 Discharge date: 02/07/23 HPI HPI HPI: Mr. Abernathy is an 87-year-old male with history of CHF, hypertension, hypothyroidism, and weight loss. He was brought to the ER due to increasing weakness over the past 2 weeks. Over the past 24 hours she has fallen 3 times. He has been somewhat confused at home and not feeling well. On arrival to the ER, patient was found to be febrile with a temperature of 102.9. He is oriented to self only. Initial work-up with leukocytosis, grossly abnormal urine (UA positive for nitrates and leuk esterase), and elevated BNP. Meeting criteria for sepsis. Started on vancomycin and Zosyn. Urine culture obtained. Given 15 cc/kg bolus due to CHF history. Has had low blood pressures but no marce hypotension necessitating pressors. Given his symptoms of sepsis secondary to UTI, ER consulted medicine for admission and further management. After arriving to the floor, patient denies any pain but is tender in his lower abdomen. Family is at bedside helps supplement history. He denies any nausea, vomiting, diarrhea. No shortness of breath or chest pain. Of note, CT of his abdomen found incidentally a pericardial effusion. Patient is stable on room air and temperature has improved with treatment. Systolic blood pressure currently in the low 90s. Hospital Course Hospital Course Hospital Course: 87-year-old male who presented with 2 weeks of weakness and 24 hours of multiple falls. On arrival to the ER diagnosed with sepsis (fever, leukocytosis, infection), UTI, rhabdomyolysis. Initiated on sepsis protocol with antibiotics and fluids. Patient stabilized and was able to wean off norepinephrine over the first 36 hours of admission. Has had stable blood pressure off of pressors for at least 24 hours. Symptoms defervesced. Improving mentation but not quite back to baseline. Has waxing and waning disorientation. Stable for discharge to [place] for further management. Problems addressed as follows: Septic shock, resolved UTI Rhabdomyolysis - UC positive for E. coli, sensitive to cephalosporins. Patient was initially treated with Zosyn on arrival due to sepsis. Antibiotics were de-escalated to ceftriaxone and then will complete course for total of 7 days with cefdinir. Sent to [facility] pharmacy. Blood cultures negative. Initially on norepinephrine for about 36 hours but has been off of it for over 24 hours with stable blood pressure. Kidney function normal at 0.5 on day of discharge. Recommend repeat CMP, CBC, CK in 1 week to monitor for resolution of rhabdomyolysis, stable kidney function, and stable electrolytes. Pericardial effusion Elevated BNP Heart failure preserved ejection fraction Hyperlipidemia -Echo reviewed from September 2021, EF preserved. Appears to have mild elevation of RVSP. Cardiology consulted, appreciate their recommendations. Repeat limited echo during admission showing stable pericardial effusion. No clinical significance to his hemodynamics at this time. No plan for intervention. We will plan to follow-up with Dr. Zhang as scheduled. We will need to repeat echo in the coming weeks to monitor for stability. Continue Eliquis twice daily for paroxysmal A-fib. Resume carvedilol low-dose. We will hold diuretic given patient's euvolemic status and blood pressures. BPH: Continue home tamsulosin Hypothyroidism: Continue home levothyroxine 75 mcg daily, TSH 1.5 Of note, patient has had some confusion during admission. Confusion has improved but he is not back to baseline mentation. Strong concern for mild cognitive impairment at minimum if not early dementia given his confusion with acute illness and disorientation while being in the hospital. Would benefit from cognitive testing or Mini-Mental/MoCA when follows up with PCP for further evaluation. Discussed this possibility with family, they expressed appreciation about further evaluation as they have s
--- NOTE | 2023-02-07 11:00 | PC.NURSE ---
Report called to Kristi at [facility]. [facility] Ambulance notified.
--- NOTE | 2023-02-07 11:37 | PC.NURSE ---
Pt left floor with ambulance personnel to go to [facility]. IV's and purewick removed.
== END 2023-02-07 11:33 | DRG 871 ==
LOC: ER 11:04 → 2ND 15:24
PROVIDERS: Nurse Practitioner; Admitting Provider Internal Medicine Adolescent Medicine; Emergency Provider Emergency Medicine; PCP Family Medicine; Visit Provider Internal Medicine Adolescent Medicine
DX: A41.9 Sepsis, unspecified organism (principal); R65.21 Severe sepsis with septic shock; I50.32 Chronic diastolic (congestive) heart failure; M62.82 Rhabdomyolysis; I31.39 Other pericardial effusion (noninflammatory); N30.01 Acute cystitis with hematuria; Z91.81 History of falling; E78.5 Hyperlipidemia, unspecified; Z95.5 Presence of coronary angioplasty implant and graft; I48.0 Paroxysmal atrial fibrillation; E78.2 Mixed hyperlipidemia; K21.9 Gastro-esophageal reflux disease without esophagitis; I11.0 Hypertensive heart disease with heart failure; N40.0 Benign prostatic hyperplasia without lower urinary tract symptoms; E03.9 Hypothyroidism, unspecified
CPT/HCPCS: 36415; 70450; 71045; 71275; 73590; 74177; 80053; 81001; 82550; 83605; 83735; 83880; 84439; 84443; 84484; 85007; 85025; 85730; 87040; 87077; 87086; 87088; 87186; 87506; 87636; 93005; 93306; 93308; 97163; 97166; 97530; 99291; J0131; J0696; J2543; J3475; Q9967

== ENCOUNTER → 2023-02-23 14:16 | Outpatient (CLI) | payer MEDICARE, BC, SELFPAY ==
[2023-02-23 15:49] LABS: Alanine Aminotransferase 23 U/L (12-78); Albumin Level 3.9 g/dl (3.5-5.0); Alkaline Phosphatase 97 U/L (38-126); Anion Gap 12.6 mEq/L (5-15); Aspartate Amino Transferase 41 U/L (17-59); Bilirubin,Direct 0.3 mg/dl (0.0-0.4); Bilirubin,Indirect 0.5 mg/dL (0.0-0.9); Bilirubin,Total 0.8 mg/dl (0.2-1.3); Bilirubin,Unconjugated 0.5 mg/dL (0.0-1.1); Blood Urea Nitrogen 21 mg/dl (9-20); Calcium 9.3 mg/dl (8.4-10.2); Carbon Dioxide 28 mmol/L (22.0-30.0); Chloride 101 mmol/L (98-107); Chol/HDL Ratio 6.4 (1-3.5); Cholesterol 167 mg/dl (140-200); Estimated Glomerular Filt Rate 92 ml/min (>60); GFR (African American) 111 ML/MIN (>60); Glucose 100 mg/dl (74-100); HDL Cholesterol 26 mg/dl (40-60); Magnesium 1.9 mg/dl (1.6-2.3); Potassium 4.6 mmoL/L (3.5-5.1); Sodium 137 mmol/L (136-145); Total Protein,Serum 7.8 g/dl (6.3-8.2); Triglycerides 181 mg/dl (30-150); VLDL Cholesterol 36 mg/dL (0-40)
[2023-02-23 16:01] LABS: Direct LDL Cholesterol 95.29 mg/dL (100-129)
[2023-02-23 16:19] LABS: Thyroid Stimulating Hormone 2.22 uIU/mL (0.465-4.68)
[2023-02-23 16:31] LABS: Basophils % 1.1 % (0.1-2.0); Eosinophils # 0.3 K/mm3 (0.0-0.4); Eosinophils % 8.9 % (0.1-12.0); Hematocrit 36.8 % (42.0-52.0); Hemoglobin 11.4 g/dL (14.1-18.0); Lymphocytes # 1.5 K/mm3 (0.7-4.5); Lymphocytes % 37.9 % (10-50); Mean Corpuscular Hemoglobin 34.2 pg (27.0-31.2); Mean Corpuscular Volume 110.4 fl (80-94); Mean Platelet Volume 8.5 fl (7.4-10.4); Monocytes # 0.4 K/mm3 (0.1-1.0); Monocytes % 9.5 % (1.7-9.3); Neutrophils # 1.6 K/mm3 (1.8-7.8); Neutrophils % 42.6 % (37.0-80.0); Platelet Count 321 K/mm3 (142-424); Red Blood Count 3.33 M/mm3 (4.60-6.20); Red Cell Distribution Width 17.2 % (11.5-17.5); White Blood Count 3.9 K/mm3 (4.8-10.8)
[2023-02-23 16:34] LABS: Free T4 (Free Thyroxine) 1.48 ng/dl (0.78-2.19)
== END ==
PROVIDERS: Internal Medicine; PCP Internal Medicine Adolescent Medicine; Visit Provider Physician Assistant
DX: I31.8 Other specified diseases of pericardium (principal); E78.5 Hyperlipidemia, unspecified; I25.10 Atherosclerotic heart disease of native coronary artery without angina pectoris; I31.39 Other pericardial effusion (noninflammatory); I48.0 Paroxysmal atrial fibrillation; I50.30 Unspecified diastolic (congestive) heart failure; K21.9 Gastro-esophageal reflux disease without esophagitis; R53.1 Weakness
CPT/HCPCS: 36415; 80048; 80061; 80076; 83735; 84439; 84443; 85025; 93306; 93308

== ENCOUNTER 2023-03-02 11:54 | Emergency (ER) | payer MEDICARE, BC, SELFPAY ==
[2023-03-02] VITALS (10 sets, daily range): BP systolic 105–139; BP diastolic 54–75; PULSE 74–89; RESP 18–20; TEMP 36.6–36.8; O2SAT 97–100; BMI 19.3
--- NOTE | 2023-03-02 11:57 | ECG_ITS ---
APPROVED REPORT Exam: Resting ECG HR:78 bpm ECG Measurements Heart Rate 78 AXES DC 151 P 74 QRSd 76 QRS 129 QT 384 T 79 QTc 417 Conclusion SINUS RHYTHM POSSIBLE RIGHT VENTRICULAR HYPERTROPHY [SOME/ALL OF: PROMINENT R IN V1, LATE TRANSITION, RAD, ANA, SSS] ABNORMAL ECG UNCONFIRMED REPORT Electronically signed by : Get Garza MD 03/03/2023 19:58:16
--- NOTE | 2023-03-02 12:09 | XR_ITS ---
FINAL REPORT TECHNIQUE: Single view chest CLINICAL HISTORY: chest pain COMPARISON: 02/04/2023 FINDINGS: A single view of the chest was obtained. The heart is mildly enlarged. Chronic changes are seen at the lung bases. The lungs are otherwise clear. There is no pneumothorax. Osseous structures are unremarkable. IMPRESSION: No acute cardiopulmonary process. Reviewed, Interpreted and Dictated by Dangelo Chi MD Transcribed by Della Worthy Authenticated and [facility]
[2023-03-02 12:18] LABS: Basophils % 1.3 % (0.1-2.0); Chloride 105 mmol/L (98-107); Eosinophils # 0.5 K/mm3 (0.0-0.4); Eosinophils % 15.4 % (0.1-12.0); Hemoglobin 10.8 g/dL (14.1-18.0); Lymphocytes # 1.3 K/mm3 (0.7-4.5); Lymphocytes % 40.5 % (10-50); Mean Corpuscular HGB Conc 31.6 g/dL (31.8-35.4); Mean Corpuscular Hemoglobin 33.7 pg (27.0-31.2); Mean Corpuscular Volume 106.5 fl (80-94); Mean Platelet Volume 9.8 fl (7.4-10.4); Monocytes # 0.3 K/mm3 (0.1-1.0); Monocytes % 9.4 % (1.7-9.3); Neutrophils # 1.1 K/mm3 (1.8-7.8); Neutrophils % 33.4 % (37.0-80.0); Platelet Count 260 K/mm3 (142-424); Potassium 3.6 mmoL/L (3.5-5.1); Red Blood Count 3.19 M/mm3 (4.60-6.20); Red Cell Distribution Width 17.3 % (11.5-17.5); Sodium 138 mmol/L (136-145); White Blood Count 3.2 K/mm3 (4.8-10.8)
[2023-03-02 12:21] LABS: Alanine Aminotransferase 27 U/L (12-78); Albumin Level 3.3 g/dl (3.5-5.0); Alkaline Phosphatase 102 U/L (38-126); Anion Gap 7.6 mEq/L (5-15); Aspartate Amino Transferase 42 U/L (17-59); Bilirubin,Total 0.7 mg/dl (0.2-1.3); Blood Urea Nitrogen 18 mg/dl (9-20); Calcium 8.9 mg/dl (8.4-10.2); Carbon Dioxide 29 mmol/L (22.0-30.0); Creatinine Clearance Estimated 48 mL/min (50-200); Estimated Glomerular Filt Rate 92 ml/min (>60); GFR (African American) 111 ML/MIN (>60); Globulin 3.4 g/dL (1.3-3.2); Glucose 92 mg/dl (74-100); Total Protein,Serum 6.7 g/dl (6.3-8.2)
[2023-03-02 12:44] LABS: Troponin I < 0.01 ng/ml (0.00-0.034)
--- NOTE | 2023-03-02 12:48 | HMH.EDGENADL ---
Discharge Plan Disposition Patient Disposition: Xfer SNF Prescriptions Prescriptions: No Action levothyroxine 75 MCG tablet 75 mcg PO Q48H tamsulosin 0.4 MG capsule 0.4 mg PO DAILY apixaban 5 MG tablet 5 mg PO BID carvedilol 3.125 MG tablet 3.125 mg PO BID aspirin 81 mg Capsule 81 mg PO DAILY furosemide 40 mg tablet 40 mg PO DAILY Patient Comments: TAKE 1 TABLET BY MOUTH IN THE MORNING AND 1/2 (ONE-HALF) IN THE EVENING levothyroxine 75 mcg tablet 37.5 mcg PO Q48H Patient Comments: TAKE 1 TABLET BY MOUTH ONCE DAILY ALTERNATING WITH 1/2 TABLET EVERY OTHER DAY omeprazole 20 mg capsule,delayed release(DR/EC) 20 mg PO DAILY Patient Comments: TAKE 1 CAPSULE BY MOUTH 30 MINUTES BEFORE BREAKFAST ONCE DAILY Vitamin 27 mg iron- 800 mcg tablet 1 tab PO DAILY ropinirole [Requip] 0.5 mg Tablet 0.5 mg PO HS Rx Instructions: administer 1-3 hours before bedtime memantine [Namenda XR] 7 mg Capsule,Sprinkle,Er 24hr 7 mg PO DAILY Referrals Follow up/Referrals: Audrey Javier APRN [Primary Care Provider] - See instructions Activity Restrictions/Add. Instructions Additional Instructions/Restrictions: At this time it was felt you are safe to be discharged home. If new or worsening symptoms please do not hesitate to return the emergency department. If symptoms persist please follow-up with your family doctor as you are able. Clinical Impressions Clinical Impression: Chest pain, Neck pain Discharge ED Provider: Hugh Chávez General Adult HPI General Chief complaint: PAIN Stated complaint: chest pain, arm pain Time Seen by Provider: 03/02/23 12:39 Mode of Arrival: EMS Source of Information: EMS Limitations: No Limitations Description of Symptoms (Recalled from ER Triage Doc. by RN): Per EMS patient complaint of left sided head and neck pain that started this morning. Patient denies chest pain. States his neck is hurting him. History of Present Illness HPI narrative: Patient is a 87-year-old male with past medical history of pericardial effusion, heart failure with preserved ejection fraction who presents emergency department for evaluation of chest pain. Onset was acute, earlier this morning. Family at bedside noticed patient stating that he had left-sided chest pain he was clutching his chest. Patient has told people that he has neck pain however when asked specifically patient says that this is not new and it is worse when he turns his head to the left and is on the left side, no headache. Per family patient was diagnosed with a urinary tract infection subsequently sent to [facility] for rehabilitation over the last few weeks and was due to be discharged tomorrow. Patient is pleasantly confused and hard of hearing at baseline. Related Data Home Medications Medication Instructions Recorded Confirmed levothyroxine 75 mcg tablet 75 mcg PO Q48H thyroid 01/02/19 03/02/23 tamsulosin 0.4 mg capsule 0.4 mg PO DAILY prostate 10/01/21 03/02/23 apixaban 5 mg tablet 5 mg PO BID Blood Thinner/afib 10/02/21 03/02/23 carvedilol 3.125 mg tablet 3.125 mg PO BID High Blood Pressure 10/02/21 03/02/23 aspirin 81 mg capsule 81 mg PO DAILY heart health 02/04/23 03/02/23 furosemide 40 mg tablet 40 mg PO DAILY Fluid 02/04/23 03/02/23 levothyroxine 75 mcg tablet 37.5 mcg PO Q48H Thyroid 02/04/23 03/02/23 omeprazole 20 mg capsule,delayed 20 mg PO DAILY Acid Reflux 02/04/23 03/02/23 release memantine 7 mg capsule 7 mg PO DAILY memory 03/02/23 03/02/23 sprinkle,extended release 24hr (Namenda XR) vits no.130-ferrous fum 1 tab PO DAILY Supplement 03/02/23 03/02/23 27 mg iron-folic acid 800 mcg tablet ( Vitamin) ropinirole 0.5 mg tablet 0.5 mg PO HS rls 03/02/23 03/02/23 Allergies Allergy/AdvReac Type Severity Reaction Status Date / Time clindamycin Allergy Verified 02/23/23 13:31 daptomycin Allergy Verifi
[2023-03-02 13:45] LABS: Microscopic, Urine URINE MICROSCOPIC (MICROSCOPIC)
[2023-03-02 13:51] LABS: Appearance,Urine CLEAR (Clear); Bilirubin,Urine Negative (Negative); Blood, Urine Negative (Negative); Color,Urine YELLOW (Yellow); Glucose,Urine (UA) Negative (Negative); Ketones,Urine Negative (Negative); Leukocyte Esterase,Urine Negative (Negative); Nitrate,Urine Negative (Negative); Protein,Urine Negative (Negative)
--- NOTE | 2023-03-02 14:13 | PC.NURSE ---
Rounded on patient. No needs at this time. Denies any pain.
--- NOTE | 2023-03-02 14:45 | PC.NURSE ---
Rounded on patient; family at BS. No needs at this time. Call key within reach
--- NOTE | 2023-03-02 15:16 | PC.NURSE ---
Second troponin obtained and sent to the lab.
[2023-03-02 15:30] LABS: Squamous Epithelial Cell,Urine Occasional #/hpf (0-5); WBC,Urine Occasional #/hpf (0-3)
[2023-03-02 16:13] LABS: Troponin I < 0.01 ng/ml (0.00-0.034)
--- NOTE | 2023-03-02 16:41 | PC.NURSE ---
ER MD Chávez at to discuss POC
--- NOTE | 2023-03-02 16:50 | PC.NURSE ---
Report given to [place].
== END 2023-03-02 17:17 ==
PROVIDERS: Emergency Provider Emergency Medicine; PCP Nurse Practitioner Family
DX: R07.9 Chest pain, unspecified (principal); M54.2 Cervicalgia; I11.0 Hypertensive heart disease with heart failure; I50.30 Unspecified diastolic (congestive) heart failure; E78.5 Hyperlipidemia, unspecified
CPT/HCPCS: 71045; 80053; 81001; 84484; 85025; 93005; 99285

== ENCOUNTER → 2023-03-25 11:36 | Outpatient (CLI) | payer MEDICARE, BC, SELFPAY ==
--- NOTE | 2023-03-25 11:43 | XR_ITS ---
FINAL REPORT CLINICAL HISTORY: Right shoulder pain after injury COMPARISON: None FINDINGS: RIGHT SHOULDER: 3 views of the right shoulder were obtained. There is no acute fracture or dislocation. There is mild AC and mild glenohumeral joint degenerative change. There is no soft tissue abnormality. IMPRESSION: No acute bony abnormality. Reviewed, Interpreted and Dictated by Jan Elena III, MD Transcribed by Carito Rush Authenticated and [facility]
--- NOTE | 2023-03-25 11:44 | XR_ITS ---
FINAL REPORT CLINICAL HISTORY: Left shoulder pain after injury COMPARISON: None FINDINGS: LEFT SHOULDER: 3 views of the left shoulder were obtained. There is no acute fracture or dislocation. There is moderate AC and mild glenohumeral joint degenerative change. There is no soft tissue abnormality. IMPRESSION: No acute bony abnormality. Reviewed, Interpreted and Dictated by Jan Elena III, MD Transcribed by Carito Rush Authenticated and [facility]
== END ==
PROVIDERS: PCP Internal Medicine Adolescent Medicine; Visit Provider Internal Medicine Adolescent Medicine
DX: M25.511 Pain in right shoulder (principal); M25.512 Pain in left shoulder
CPT/HCPCS: 73030

== ENCOUNTER 2023-05-30 10:36 | Emergency (ER) | payer MEDICARE, BC, SELFPAY ==
[2023-05-30] VITALS (8 sets, daily range): BP systolic 113–154; BP diastolic 73–90; PULSE 90–99; RESP 16–20; TEMP 36.6; O2SAT 96–100; BMI 19.2
--- NOTE | 2023-05-30 10:46 | ECG_ITS ---
APPROVED REPORT Exam: Resting ECG HR:94 bpm ECG Measurements Heart Rate 94 AXES MD 124 P 63 QRSd 72 QRS 97 QT 317 T 91 QTc 368 Conclusion SINUS RHYTHM WITH FREQUENT SUPRAVENTRICULAR PREMATURE COMPLEXES BORDERLINE RIGHT AXIS DEVIATION [QRS AXIS > 90] NONSPECIFIC T-WAVE ABNORMALITY ABNORMAL RHYTHM ECG UNCONFIRMED REPORT Electronically signed by : Get Garza MD 05/31/2023 07:34:02
--- NOTE | 2023-05-30 10:49 | XR_ITS ---
PROCEDURE INFORMATION: Exam: XR Chest Exam date and time: 05/30/2023 11:30 AM Age: 87 years old Clinical indication: Injury or trauma; Fall; Blunt trauma (contusions or hematomas); Additional info: Falls x 2, pain TECHNIQUE: Imaging protocol: Radiologic exam of the chest. Views: 1 view. COMPARISON: CR XR CHEST PORTABLE 03/02/2023 12:35 PM FINDINGS: Lungs: Coarse calcification is noted at the right lung base unchanged from the prior study. Pleural spaces: Unremarkable. No pleural effusion. No pneumothorax. Heart/Mediastinum: Unremarkable. No cardiomegaly. Bones/joints: Degenerative changes are noted in the bones with mild levoconvex curvature of the thoracolumbar spine. IMPRESSION: No acute cardiopulmonary disease.
--- NOTE | 2023-05-30 10:49 | CT_ITS ---
PROCEDURE INFORMATION: Exam: CT Lumbar Spine Without Contrast Exam date and time: 05/30/2023 11:30 AM Age: 87 years old Clinical indication: Injury or trauma; Fall; Blunt trauma (contusions or hematomas); Additional info: Falls x 2, pain TECHNIQUE: Imaging protocol: Computed tomography of the lumbar spine without contrast. Radiation optimization: All CT scans at this facility use at least one of these dose optimization techniques: automated exposure control; mA and/or kV adjustment per patient size (includes targeted exams where dose is matched to clinical indication); or iterative reconstruction. REPORTING DATA: Count of CT and Cardiac NM exams in prior 12 months: This patient has received 3 known CTs and 0 known cardiac nuclear medicine studies in the 12 months prior to the current study. COMPARISON: CT THORACIC SPINE WO CON 05/30/2023 11:28 AM FINDINGS: Bones/joints: There is a 19 degree dextroscoliosis of the lumbar spine centered at L3. Vertebral body heights are preserved. The patient has undergone laminectomy from L2-L5. There is multilevel lumbar spondylosis with disc osteophyte, facet arthropathy, most notable at L3-L4 and L4-L5. There is moderate canal stenosis at L4-L5 and severe neural foraminal stenosis. Vasculature: There is a 25 mm infrarenal abdominal aortic aneurysm for which annual aortic ultrasound is recommended to follow. Soft tissues: Punctate nonobstructing calculi are noted at the lower pole of the left kidney. IMPRESSION: Lumbar spondylosis, dextroscoliosis, postsurgical change, as described. Canal narrowing as described, worst at L4-L5. Recommend annual aortic ultrasound to follow a 25 mm infrarenal aneurysm.
--- NOTE | 2023-05-30 10:49 | CT_ITS ---
PROCEDURE INFORMATION: Exam: CT Thoracic Spine Without Contrast Exam date and time: 05/30/2023 11:28 AM Age: 87 years old Clinical indication: Injury or trauma; Fall; Blunt trauma (contusions or hematomas); Additional info: Falls x 2, pain TECHNIQUE: Imaging protocol: Computed tomography of the thoracic spine without contrast. Radiation optimization: All CT scans at this facility use at least one of these dose optimization techniques: automated exposure control; mA and/or kV adjustment per patient size (includes targeted exams where dose is matched to clinical indication); or iterative reconstruction. REPORTING DATA: Count of CT and Cardiac NM exams in prior 12 months: This patient has received 3 known CTs and 0 known cardiac nuclear medicine studies in the 12 months prior to the current study. COMPARISON: CT CERVICAL SPINE WO CON 05/30/2023 11:24 AM FINDINGS: Bones/joints: The bones are osteopenic. There is a somewhat exaggerated kyphoscoliosis of the thoracic spine. Vertebral body heights are generally preserved. There is lower thoracic spondylotic change. The patient has undergone laminectomy at T11 and T12. There is spondylotic change at T11-12 with prominent disc bulge and facet arthropathy, which has been decompressed by the laminectomy. There is moderate to severe neural foraminal narrowing at T11-12 and T12-L1. Facet arthropathy is noted at T10-11 on the right causing moderate stenosis. Disc osteophyte and facet arthropathy is present at C6-C7. Soft tissues: Unremarkable. Lungs: Calcified granuloma is noted in the right middle lobe. IMPRESSION: Spondylotic and postsurgical changes in the thoracic spine. Underlying osteopenia.
--- NOTE | 2023-05-30 10:49 | CT_ITS ---
PROCEDURE INFORMATION: Exam: CT Head Without Contrast Exam date and time: 05/30/2023 10:56 AM Age: 87 years old Clinical indication: Injury or trauma; Fall; Blunt trauma (contusions or hematomas); Additional info: Falls x 2, pain TECHNIQUE: Imaging protocol: Computed tomography of the head without contrast. Radiation optimization: All CT scans at this facility use at least one of these dose optimization techniques: automated exposure control; mA and/or kV adjustment per patient size (includes targeted exams where dose is matched to clinical indication); or iterative reconstruction. REPORTING DATA: Count of CT and Cardiac NM exams in prior 12 months: This patient has received 3 known CTs and 0 known cardiac nuclear medicine studies in the 12 months prior to the current study. COMPARISON: CT HEAD/BRAIN WO CON 02/04/2023 11:17 AM FINDINGS: Brain: Moderate chronic microvascular ischemic changes are noted in the periventricular areas. Moderate diffuse cerebral atrophy is seen. Hypodensity measuring 4-5 mm in the right basal ganglia likely represent old lacunar infarcts, stable. Cerebral ventricles: No ventriculomegaly. Paranasal sinuses: Visualized sinuses are unremarkable. No fluid levels. Mastoid air cells: Complete opacification of the right mastoid air cells can be seen with acute mastoiditis. Bones/joints: Unremarkable. No acute fracture. Soft tissues: Unremarkable. IMPRESSION: 1. No acute findings. 2. Moderate chronic microvascular ischemic changes with moderate diffuse cerebral atrophy. 3. Hypodensity measuring 4-5 mm in the right basal ganglia likely represent old lacunar infarcts, stable. 4. Complete opacification of the right mastoid air cells can be seen with acute mastoiditis.
--- NOTE | 2023-05-30 10:49 | XR_ITS ---
PROCEDURE INFORMATION: Exam: XR Pelvis Exam date and time: 05/30/2023 11:30 AM Age: 87 years old Clinical indication: Injury or trauma; Fall; Blunt trauma (contusions or hematomas); Bilateral; Pelvic region; Additional info: Falls x 2, pain TECHNIQUE: Imaging protocol: Radiologic exam of the pelvis. Views: 1 or 2 view. COMPARISON: CT ABDOMEN PELVIS W CON 02/04/2023 11:19 AM FINDINGS: Bones/joints: Bones are osteopenic. There is relative sclerosis of the right femoral head without significant disc space loss. Soft tissues: Unremarkable. IMPRESSION: Osteopenia, pelvis. No obvious acute displaced fracture. Relative sclerosis of the right femoral head could be degenerative or due to avascular necrosis. Please correlate clinically.
--- NOTE | 2023-05-30 10:49 | CT_ITS ---
PROCEDURE INFORMATION: Exam: CT Cervical Spine Without Contrast Exam date and time: 05/30/2023 11:24 AM Age: 87 years old Clinical indication: Injury or trauma; Fall; Blunt trauma; Additional info: Falls x 2, pain TECHNIQUE: Imaging protocol: Computed tomography of the cervical spine without contrast. Radiation optimization: All CT scans at this facility use at least one of these dose optimization techniques: automated exposure control; mA and/or kV adjustment per patient size (includes targeted exams where dose is matched to clinical indication); or iterative reconstruction. REPORTING DATA: Count of CT and Cardiac NM exams in prior 12 months: This patient has received 3 known CTs and 0 known cardiac nuclear medicine studies in the 12 months prior to the current study. COMPARISON: MR CERVICAL SPINE WO CON 09/23/2019 1:48 PM FINDINGS: Bones/joints: A fracture lucency is seen across the C5 vertebral body in the anterior-posterior direction. Moderate spondylosis affects the cervical spine. Multilevel neural foraminal narrowing seen involving the cervical spine. C2-C3: No significant disc bulge or herniation. No severe spinal canal stenosis. No significant neural foraminal narrowing. C3-C4: No significant disc bulge or herniation. No severe spinal canal stenosis. Severe bilateral significant neural foraminal narrowing. C4-C5: No significant disc bulge or herniation. No severe spinal canal stenosis moderate bilateral neural foraminal narrowing. C5-C6: Severe spondylosis is seen involving the C5-C6. Moderate retrolisthesis is seen involving the C6-C7.Mild anterolisthesis at C7-T1. is seen. Moderate bilateral neural foraminal narrowing. C6-C7: Severe spondylosis is seen at C6-C7. C7-T1: No significant disc bulge or herniation. No severe spinal canal stenosis. No significant neural foraminal narrowing. Lungs: Lung apices are normal. Soft tissues: Unremarkable. IMPRESSION: 1. Acute fracture involving the C5 vertebral body extending throughout the vertebral body. No evidence of fracture fragments bulging into the spinal canal. Emergent MRI is recommended to determine the acuity of this fracture. 2. Severe spondylosis with multilevel neural foraminal narrowing. 3. Moderate retrolisthesis involving the C6-C7. Mild anterolisthesis at C7-T1. THIS REPORT CONTAINS FINDINGS THAT MAY BE CRITICAL TO PATIENT CARE. The findings were verbally communicated via telephone conference with Iris Root at 12:16 PM EST on 05/30/2023. The findings were acknowledged and understood.
--- NOTE | 2023-05-30 11:05 | PC.NURSE ---
PT TO CT
--- NOTE | 2023-05-30 11:08 | [facility].EDGENADL ---
Discharge Plan Disposition Patient Disposition: Xfer Short-Term Hosp Condition: Good Prescriptions Prescriptions: No Action levothyroxine 75 MCG tablet 75 mcg PO Q48H tamsulosin 0.4 MG capsule 0.4 mg PO DAILY apixaban 5 MG tablet 5 mg PO BID carvedilol 3.125 MG tablet 3.125 mg PO BID aspirin 81 mg Capsule 81 mg PO DAILY furosemide 40 mg tablet 40 mg PO DAILY Patient Comments: TAKE 1 TABLET BY MOUTH IN THE MORNING AND 1/2 (ONE-HALF) IN THE EVENING levothyroxine 75 mcg tablet 37.5 mcg PO Q48H Patient Comments: TAKE 1 TABLET BY MOUTH ONCE DAILY ALTERNATING WITH 1/2 TABLET EVERY OTHER DAY omeprazole 20 mg capsule,delayed release(DR/EC) 20 mg PO DAILY Patient Comments: TAKE 1 CAPSULE BY MOUTH 30 MINUTES BEFORE BREAKFAST ONCE DAILY Vitamin 27 mg iron- 800 mcg tablet 1 tab PO DAILY ropinirole [Requip] 0.5 mg Tablet 0.5 mg PO HS Rx Instructions: administer 1-3 hours before bedtime memantine [Namenda XR] 7 mg Capsule,Sprinkle,Er 24hr 7 mg PO DAILY Referrals Follow up/Referrals: Get Garza MD [Primary Care Provider] - See instructions Clinical Impressions Clinical Impression: Fall, Altered mental status C5 cervical fracture Qualifiers: Encounter type: initial encounter Fracture type: closed Fracture morphology: unspecified fracture morphology Fracture alignment: nondisplaced Qualified Code(s): S12.401A - Unspecified nondisplaced fracture of fifth cervical vertebra, initial encounter for closed fracture Instructions Patient Instructions: DI for Neck Pain Discharge ED Provider: Iris Root General Adult HPI General Chief complaint: Neck Pain/Injury Stated complaint: AO 05/30/23 0700 neck pain Time Seen by Provider: 05/30/23 10:45 Mode of Arrival: Wheelchair Limitations: No Limitations Description of Symptoms (Recalled from ER Triage Doc. by RN): PT C/O NECK PAIN AFTER A FALL. REPORTS UNWITNESSED FALL YESTERDAY AND THIS AM. PT WAS ABLE TO GET UP FROM FALL THIS AM. REPORTS INCREASED CONFUSION X 2-3 DAYS. PT PLACED IN C-COLLAR UPON ARRIVAL History of Present Illness HPI narrative: This patient is an 87-year-old male with a history of hypertension, hyperlipidemia, paroxysmal atrial fibrillation on Eliquis, BPH, CHF, anemia, general weakness, hypothyroidism, and dementia presenting to the emergency department for evaluation with concern for frequent falls and change in mental status. According to the patient's family, he fell yesterday and this morning. Both falls were unwitnessed. He was able to get up, but he is more confused than normal. He has been confused for the last 2 to 3 days. He went to Dr. Garza's office today for evaluation, who called and sent him over here with concern for confusion in the setting of head trauma and frequent falls. Patient does not contribute much to history given altered mental status. Related Data Home Medications Medication Instructions Recorded Confirmed levothyroxine 75 mcg tablet 75 mcg PO Q48H thyroid 01/02/19 04/16/23 tamsulosin 0.4 mg capsule 0.4 mg PO DAILY prostate 10/01/21 04/16/23 apixaban 5 mg tablet 5 mg PO BID Blood Thinner/afib 10/02/21 04/16/23 carvedilol 3.125 mg tablet 3.125 mg PO BID High Blood Pressure 10/02/21 04/16/23 aspirin 81 mg capsule 81 mg PO DAILY heart health 02/04/23 04/16/23 furosemide 40 mg tablet 40 mg PO DAILY Fluid 02/04/23 04/16/23 levothyroxine 75 mcg tablet 37.5 mcg PO Q48H Thyroid 02/04/23 04/16/23 omeprazole 20 mg capsule,delayed 20 mg PO DAILY Acid Reflux 02/04/23 04/16/23 release memantine 7 mg capsule 7 mg PO DAILY memory 03/02/23 04/16/23 sprinkle,extended release 24hr (Namenda XR) vits no.130-ferrous fum 1 tab PO DAILY Supplement 03/02/23 04/16/23 27 mg iron-folic acid 800 mcg tablet ( Vitamin) ropinirole 0.5 mg tablet 0.5 mg PO HS rls 03/02/23 04/16/23 Allergies Allergy/AdvR
[2023-05-30 11:14] LABS: Basophils # 0.1 K/mm3 (0-0.2); Basophils % 0.4 % (0.1-2.0); Eosinophils # 0.1 K/mm3 (0.0-0.4); Eosinophils % 0.3 % (0.1-12.0); Hemoglobin 15.2 g/dL (14.1-18.0); Lymphocytes # 2.3 K/mm3 (0.7-4.5); Lymphocytes % 14.3 % (10-50); Mean Corpuscular HGB Conc 33.9 g/dL (31.8-35.4); Mean Corpuscular Hemoglobin 37.3 pg (27.0-31.2); Mean Platelet Volume 8.9 fl (7.4-10.4); Monocytes # 1.1 K/mm3 (0.1-1.0); Neutrophils # 12.8 K/mm3 (1.8-7.8); Platelet Count 338 K/mm3 (142-424); Red Blood Count 4.09 M/mm3 (4.60-6.20); Red Cell Distribution Width 16.4 % (11.5-17.5); White Blood Count 16.4 K/mm3 (4.8-10.8)
--- NOTE | 2023-05-30 11:15 | PC.NURSE ---
pt at ct
[2023-05-30 11:18] LABS: Chloride 104 mmol/L (98-107); MANUAL DIFFERENTIAL MANUAL DIFFERENTIAL (MANUAL DIFF); Potassium 4.4 mmoL/L (3.5-5.1); Sodium 138 mmol/L (136-145)
[2023-05-30 11:21] LABS: Alanine Aminotransferase 37 U/L (12-78); Albumin Level 4.9 g/dl (3.5-5.0); Albumin/Globulin Ratio 1.2 (1.1-1.8); Alkaline Phosphatase 61 U/L (38-126); Anion Gap 13.4 mEq/L (5-15); Aspartate Amino Transferase 49 U/L (17-59); Bilirubin,Total 1.4 mg/dl (0.2-1.3); Blood Urea Nitrogen 30 mg/dl (9-20); Carbon Dioxide 25 mmol/L (22.0-30.0); Creatinine Clearance Estimated 38 mL/min (50-200); Estimated Glomerular Filt Rate 57 ml/min (>60); GFR (African American) 69 ML/MIN (>60); Globulin 4.1 g/dL (1.3-3.2); Glucose 92 mg/dl (74-100)
[2023-05-30 11:22] LABS: INR 1.08 (0.9-1.1); Magnesium 1.9 mg/dl (1.6-2.3); Prothrombin Time 11.6 seconds (10.1-12.5)
--- NOTE | 2023-05-30 11:34 | PC.NURSE ---
pt back to room from ct
[2023-05-30 11:40] LABS: T4 (Thyroxine) 13.4 ug/dl (5.53-11.0)
[2023-05-30 11:54] LABS: Thyroid Stimulating Hormone 3.36 uIU/mL (0.465-4.68)
--- NOTE | 2023-05-30 12:14 | PC.NURSE ---
Dhiraj talking to Dr Root
--- NOTE | 2023-05-30 12:19 | CT_ITS ---
PROCEDURE INFORMATION: Exam: CTA Head With Contrast, Arteriography Exam date and time: 05/30/2023 1:26 PM Age: 87 years old Clinical indication: Injury or trauma; Fall; Blunt trauma; Neck; Additional info: Fall, trauma TECHNIQUE: Imaging protocol: Computed tomographic angiography of the head with contrast. Exam focused on the arteries. 3D rendering (Not supervised by radiologist): MIP and/or 3D reconstructed images were created by the technologist. Radiation optimization: All CT scans at this facility use at least one of these dose optimization techniques: automated exposure control; mA and/or kV adjustment per patient size (includes targeted exams where dose is matched to clinical indication); or iterative reconstruction. Contrast material: ISOVUE 370; Contrast volume: 100 ml; Contrast route: INTRAVENOUS (IV); REPORTING DATA: Count of CT and Cardiac NM exams in prior 12 months: This patient has received 3 known CTs and 0 known cardiac nuclear medicine studies in the 12 months prior to the current study. COMPARISON: CT HEAD/BRAIN WO CON 05/30/2023 10:56 AM FINDINGS: ANTERIOR CIRCULATION: Right internal carotid artery: Intracranial segment is patent with no significant stenosis. No aneurysm. Right middle cerebral artery: No occlusion or significant stenosis. No aneurysm. Right anterior cerebral artery: No occlusion or significant stenosis. No aneurysm. Left internal carotid artery: Intracranial segment is patent with no significant stenosis. No aneurysm. Left middle cerebral artery: No occlusion or significant stenosis. No aneurysm. Left anterior cerebral artery: No occlusion or significant stenosis. No aneurysm. POSTERIOR CIRCULATION: Right vertebral artery: No occlusion or significant stenosis. No aneurysm. Left vertebral artery: No occlusion or significant stenosis. No aneurysm. Basilar artery: No occlusion or significant stenosis. No aneurysm. Right posterior cerebral artery: No occlusion or significant stenosis. No aneurysm. Left posterior cerebral artery: No occlusion or significant stenosis. No aneurysm. Brain: No definite mass, mass effect, or midline shift. Cerebral ventricles: No ventriculomegaly. Bones/joints: No skull fracture or bone lesions. Oblique longitudinally oriented fracture in the C5 vertebral body. No subluxation, disc space widening, or facet joint disruption. Laminectomies from C3 through C6. Soft tissues: No masses or swelling. IMPRESSION: 1. No large vessel occlusion. No acute intracranial abnormalities. 2. Longitudinally oriented split fracture of C5 vertebral body. Posterior cortex is probably not involved. No evidence of translation.
--- NOTE | 2023-05-30 12:19 | CT_ITS ---
PROCEDURE INFORMATION: Exam: CTA Abdomen and Pelvis With Contrast Exam date and time: 05/30/2023 1:54 PM Age: 87 years old Clinical indication: Injury or trauma; Fall; Blunt trauma; Lower abdominal or back area; Bilateral; Additional info: Fall, trauma TECHNIQUE: Imaging protocol: Computed tomographic angiography of the abdomen and pelvis with contrast. Exam focused on the arteries. 3D rendering (Not supervised by radiologist): MIP and/or 3D reconstructed images were created by the technologist. Radiation optimization: All CT scans at this facility use at least one of these dose optimization techniques: automated exposure control; mA and/or kV adjustment per patient size (includes targeted exams where dose is matched to clinical indication); or iterative reconstruction. Contrast material: ISOVUE 370; Contrast volume: 100 ml; Contrast route: INTRAVENOUS (IV); REPORTING DATA: Count of CT and Cardiac NM exams in prior 12 months: This patient has received 3 known CTs and 0 known cardiac nuclear medicine studies in the 12 months prior to the current study. COMPARISON: [facility]ABD CT angio abdomen 12/13/2018 9:02 AM FINDINGS: Aorta: No aortic aneurysm. No aortic dissection. 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 Renal arteries: No occlusion or significant stenosis. Right iliac arteries: No occlusion or significant stenosis. Left iliac arteries: No occlusion or significant stenosis. Liver: No mass. Gallbladder and bile ducts: No calcified stones. No ductal dilation. Pancreas: No mass. No ductal dilation. Spleen: No splenomegaly. No mass or surrounding fluid. Adrenal glands: No mass. Kidneys and ureters: Left kidney has 2 nonenhancing cysts, the largest in the lower pole measuring 2 cm. No evidence of kidney injury. No calcified stones, hydronephrosis, or solid masses. Stomach and bowel: No intestinal masses, bowel wall thickening, or abnormal luminal dilatation. Appendix: No evidence of appendicitis. Intraperitoneal space: No free air. No significant fluid collection. Lymph nodes: No enlarged lymph nodes. Urinary bladder: No asymmetric bladder wall thickening or enhancement. Reproductive: No abnormalities as visualized. Bones/joints: Laminectomy defects at T10, T11, and at L2-L5. No acute fractures, subluxations, or bone lesions. 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 Soft tissues: No soft tissue masses. IMPRESSION: 1. No traumatic or other acute findings in the abdomen and pelvis. 2. 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 3. Benign left kidney cyst.
--- NOTE | 2023-05-30 12:19 | CT_ITS ---
PROCEDURE INFORMATION: Exam: CTA Neck With Contrast Exam date and time: 05/30/2023 1:26 PM Age: 87 years old Clinical indication: Injury or trauma; Fall; Blunt trauma; Neck; Additional info: Fall, trauma TECHNIQUE: Imaging protocol: Computed tomographic angiography of the neck with contrast. Exam focused on the cervical segments of the vasculature. 3D rendering (Not supervised by radiologist): MIP and/or 3D reconstructed images were created by the technologist. Radiation optimization: All CT scans at this facility use at least one of these dose optimization techniques: automated exposure control; mA and/or kV adjustment per patient size (includes targeted exams where dose is matched to clinical indication); or iterative reconstruction. Contrast material: ISOVUE 370; Contrast volume: 100 ml; Contrast route: INTRAVENOUS (IV); REPORTING DATA: Count of CT and Cardiac NM exams in prior 12 months: This patient has received 3 known CTs and 0 known cardiac nuclear medicine studies in the 12 months prior to the current study. COMPARISON: CT CERVICAL SPINE WO CON 05/30/2023 11:24 AM FINDINGS: Right common carotid artery: No stenosis. No dissection or occlusion. Right internal carotid artery: No stenosis of the extracranial segment. No dissection or occlusion. Right external carotid artery: No occlusion or stenosis of the origin. Left common carotid artery: No stenosis. No dissection or occlusion. Left internal carotid artery: No stenosis of the extracranial segment. No dissection or occlusion. Left external carotid artery: No occlusion or stenosis of the origin. Right vertebral artery: No stenosis. No dissection or occlusion. Left vertebral artery: No stenosis. No dissection or occlusion. Soft tissues: No significant soft tissue swelling. Bones/joints: Oblique longitudinally oriented fracture in the vertebral body of C5 has no definite involvement of the posterior cortex. No disc space or facet joint widening are identified. No subluxation. No other fractures or focal bone lesions. Laminectomy defects from C3 through C6 bilateral foraminal narrowing at virtually all levels of the cervical spine due to spondylosis. IMPRESSION: No stenosis or occlusion. Oblique split fracture of the C5 vertebral body. No retropulsion, disc space narrowing, subluxation, or facet joint disruption are identified. THIS REPORT CONTAINS FINDINGS THAT MAY BE CRITICAL TO PATIENT CARE. The findings were verbally communicated via telephone conference with Iris Root at 2:42 PM EST on 05/30/2023. The findings were acknowledged and understood. REFERENCES: NASCET CRITERIA. The degree of stenosis in the cervical segment of the internal carotid artery is based on NASCET criteria. Normal is no stenosis. Mild is less than 50% stenosis. Moderate is 50-69% stenosis. Severe is 70% to 99% stenosis. Total occlusion is no detectable patent lumen.
--- NOTE | 2023-05-30 12:19 | CT_ITS ---
PROCEDURE INFORMATION: Exam: CTA Chest With Contrast Exam date and time: 05/30/2023 1:54 PM Age: 87 years old Clinical indication: Injury or trauma; Fall; Blunt trauma (contusions or hematomas); Additional info: Fall, trauma TECHNIQUE: Imaging protocol: Computed tomographic angiography of the chest with contrast. Exam focused on the arteries. 3D rendering (Not supervised by radiologist): MIP and/or 3D reconstructed images were created by the technologist. Radiation optimization: All CT scans at this facility use at least one of these dose optimization techniques: automated exposure control; mA and/or kV adjustment per patient size (includes targeted exams where dose is matched to clinical indication); or iterative reconstruction. Contrast material: ISOVUE 370; Contrast volume: 100 ml; Contrast route: INTRAVENOUS (IV); REPORTING DATA: Count of CT and Cardiac NM exams in prior 12 months: This patient has received 3 known CTs and 0 known cardiac nuclear medicine studies in the 12 months prior to the current study. COMPARISON: CT ANGIO CHEST PE PROTOCOL 02/04/2023 11:19 AM FINDINGS: Pulmonary arteries: No pulmonary emboli. Aorta: No aortic aneurysm. No aortic dissection. Lungs: Calcified granulomas in the right middle lobe. No airspace consolidation, nodules, or pleural effusions. Pleural spaces: No effusions. No pneumothoraces. Heart: No cardiomegaly. Very small pericardial effusion. Coronary arteries: Coronary artery stent in the LAD. Lymph nodes: Calcified right hilar and paratracheal lymph nodes. Bones/joints: Oblique split fracture in the vertebral body of C5. No other fractures or subluxations are disc space narrowing and half osteophytes throughout the thoracic and lumbar spine. Laminectomy defects at T10 and T11. Soft tissues: No soft tissue masses. IMPRESSION: 1. Oblique split fracture in the vertebral body of C5. No subluxations or facet joint disruption. Dr. Root has previously been notified of the C5 fracture via telephone conference. 2. No other fractures. No traumatic or other acute findings in the chest. Next large prior granulomatous infection.
--- NOTE | 2023-05-30 12:22 | PC.NURSE ---
DR MCCLURE AT BEDSIDE TO UPDATE FAMILY
[2023-05-30 12:27] LABS: Microscopic, Urine URINE MICROSCOPIC (MICROSCOPIC)
[2023-05-30 12:28] LABS: Lymphocytes % 18 % (10-50); Macrocytosis 2+; Monocytes % 9 % (2-9); Neutrophils % 73 % (42-76); Platelet Estimate Normal; Total Cells Counted 100
[2023-05-30 12:30] LABS: Appearance,Urine CLEAR (Clear); Bilirubin,Urine Negative (Negative); Blood, Urine Negative (Negative); Color,Urine YELLOW (Yellow); Glucose,Urine (UA) Negative (Negative); Ketones,Urine Negative (Negative); Leukocyte Esterase,Urine Negative (Negative); Nitrate,Urine Negative (Negative); Protein,Urine Negative (Negative); Specific Gravity, Urine 1.015 (1.005-1.030); Urobilinogen,Urine 0.2 EU/dl (0.2)
[2023-05-30 12:41] LABS: Bacteria,Urine Trace /lpf; Squamous Epithelial Cell,Urine Occasional #/hpf (0-5); WBC,Urine Occasional #/hpf (0-3)
--- NOTE | 2023-05-30 13:50 | PC.NURSE ---
pt at ct
--- NOTE | 2023-05-30 14:02 | PC.NURSE ---
pt back to room from ct
--- NOTE | 2023-05-30 14:39 | PC.NURSE ---
eliu speaking to Dr Root
--- NOTE | 2023-05-30 14:44 | PC.NURSE ---
Dr Root speaking with transfer deni parks
--- NOTE | 2023-05-30 15:35 | PC.NURSE ---
Report given to EMS. Pt transferred onto EMS stretcher.
== END 2023-05-30 15:35 | disposition short-term general hospital (02) ==
PROVIDERS: Emergency Provider Emergency Medicine; PCP Internal Medicine Adolescent Medicine
DX: R41.82 Altered mental status, unspecified (principal); S12.401A Unspecified nondisplaced fracture of fifth cervical vertebra, initial encounter for closed fracture; R29.6 Repeated falls; I11.0 Hypertensive heart disease with heart failure; I50.9 Heart failure, unspecified; I48.0 Paroxysmal atrial fibrillation; E78.5 Hyperlipidemia, unspecified; E03.9 Hypothyroidism, unspecified; W19.XXXA Unspecified fall, initial encounter; I49.1 Atrial premature depolarization
CPT/HCPCS: 70450; 70496; 70498; 71045; 71275; 72125; 72128; 72131; 72170; 74174; 80053; 81001; 83735; 84436; 84443; 85007; 85025; 85610; 93005; J2405; Q9967

== ENCOUNTER 2023-05-31 13:05 | Inpatient (IN) | payer MEDICARE, BC, SELFPAY ==
[2023-05-31] VITALS (12 sets, daily range): BP systolic 107–165; BP diastolic 64–97; PULSE 99–114; RESP 16–20; TEMP 36.6–37.2; O2SAT 97–100; BMI 19.1; BMI 19.0
--- NOTE | 2023-05-31 11:46 | ECG_ITS ---
APPROVED REPORT Exam: Resting ECG HR:98 bpm ECG Measurements Heart Rate 98 AXES FL 123 P 67 QRSd 75 QRS 84 QT 312 T 72 QTc 367 Conclusion SINUS RHYTHM WITH SINUS ARRHYTHMIA NONSPECIFIC T-WAVE ABNORMALITY BORDERLINE ECG UNCONFIRMED REPORT Electronically signed by : Get Garza MD 06/01/2023 14:45:45
--- NOTE | 2023-05-31 13:11 | CT_ITS ---
PROCEDURE INFORMATION: Exam: CT Head Without Contrast Exam date and time: 05/31/2023 1:36 PM Age: 87 years old Clinical indication: Injury or trauma; Fall; Additional info: Falls, known neck FX TECHNIQUE: Imaging protocol: Computed tomography of the head without contrast. Radiation optimization: All CT scans at this facility use at least one of these dose optimization techniques: automated exposure control; mA and/or kV adjustment per patient size (includes targeted exams where dose is matched to clinical indication); or iterative reconstruction. REPORTING DATA: Count of CT and Cardiac NM exams in prior 12 months: This patient has received 11 known CTs and 0 known cardiac nuclear medicine studies in the 12 months prior to the current study. COMPARISON: 1. CT ANGIO HEAD 05/30/2023 1:26 PM [address] . 3. CT HEAD/BRAIN WO CON 02/04/2023 11:17 AM FINDINGS: Brain: No hemorrhage. Moderately extensive low density in the white matter of both cerebral hemispheres without mass effect. No other intra-axial or extra-axial lesions or masses. No midline shift. Cerebral ventricles: Ventricular systems are mildly prominent but are age-appropriate. Paranasal sinuses: Visualized sinuses are well aerated. No fluid levels. Mastoid air cells: Visualized mastoid air cells are well aerated. Bones/joints: No acute fracture or bone lesions. Soft tissues: No abnormalities. IMPRESSION: 1. No acute intracranial abnormality. No interval changes. 2. Cerebral atrophy and moderately extensive white matter microvascular disease.
--- NOTE | 2023-05-31 13:11 | CT_ITS ---
PROCEDURE INFORMATION: Exam: CT Cervical Spine Without Contrast Exam date and time: 05/31/2023 1:38 PM Age: 87 years old Clinical indication: Injury or trauma; Fall; Additional info: Falls, known neck FX TECHNIQUE: Imaging protocol: Computed tomography of the cervical spine without contrast. Radiation optimization: All CT scans at this facility use at least one of these dose optimization techniques: automated exposure control; mA and/or kV adjustment per patient size (includes targeted exams where dose is matched to clinical indication); or iterative reconstruction. REPORTING DATA: Count of CT and Cardiac NM exams in prior 12 months: This patient has received 11 known CTs and 0 known cardiac nuclear medicine studies in the 12 months prior to the current study. COMPARISON: CT CERVICAL SPINE WO CON 05/30/2023 11:24 AM FINDINGS: Bones/joints: Oblique split fracture of the C5 vertebral body, from right anterior to left posterior, remains in near anatomic alignment with a fracture gap measuring 2 mm or less. No associated facet fractures. No other cervical spine fractures. Spine alignment remains anatomic. No epidural mass. No disc space widening. Laminectomy defects from C3-C7. Disc space narrowing and osteophytes at C3-C4, C5-C6, and C6-C7. No significant disc bulge or herniation. No severe spinal canal stenosis. No significant neural foraminal narrowing. Calcification and thickening 5th of the transverse ligament at C1-C2 is unchanged. Lungs: Lung apices are normal. Soft tissues: No paraspinal or prevertebral soft tissue masses. Atherosclerotic calcifications in both proximal internal carotid arteries. IMPRESSION: 1. Vertical, oblique, split fracture of the C5 vertebral body remains in stable anatomic alignment. No subluxations. No prevertebral or epidural masses. 2. No other cervical fractures or subluxations. 3. Multilevel degenerative disc disease and spondylosis in the cervical spine.
--- NOTE | 2023-05-31 13:11 | XR_ITS ---
PROCEDURE INFORMATION: Exam: XR Chest Exam date and time: 05/31/2023 1:37 PM Age: 87 years old Clinical indication: Injury or trauma; Fall; Other: C5 FX; Additional info: Falls, known neck FX TECHNIQUE: Imaging protocol: Radiologic exam of the chest. Views: 1 view. COMPARISON: CT ANGIO CHEST 05/30/2023 1:54 PM FINDINGS: Lungs: Unremarkable. No consolidation. Pleural spaces: Unremarkable. No pleural effusion. No pneumothorax. Heart/Mediastinum: Unremarkable. No cardiomegaly. Vasculature: Atherosclerosis. Bones/joints: Osteopenia. Degenerative changes of the spine. IMPRESSION: No acute findings.
--- NOTE | 2023-05-31 13:11 | XR_ITS ---
PROCEDURE INFORMATION: Exam: XR Pelvis Exam date and time: 05/31/2023 1:37 PM Age: 87 years old Clinical indication: Injury or trauma; Fall; Additional info: Falls, known neck FX TECHNIQUE: Imaging protocol: Radiologic exam of the pelvis. Views: 1 or 2 view. COMPARISON: CT ANGIO ABDOMEN PELVIS 05/30/2023 1:54 PM FINDINGS: Bones/joints: Osteopenia. Degenerative changes of the spine. Soft tissues: Unremarkable. Vasculature: Atherosclerosis. IMPRESSION: No acute findings.
--- NOTE | 2023-05-31 13:16 | PC.NURSE ---
Dr. Root at bedside
[2023-05-31 13:38] LABS: Chloride 101 mmol/L (98-107); Potassium 4.5 mmoL/L (3.5-5.1); Sodium 136 mmol/L (136-145)
[2023-05-31 13:40] LABS: Blood Urea Nitrogen 36 mg/dl (9-20); Creatinine Clearance Estimated 35 mL/min (50-200); Estimated Glomerular Filt Rate 52 ml/min (>60); GFR (African American) 63 ML/MIN (>60)
[2023-05-31 13:41] LABS: Alanine Aminotransferase 33 U/L (12-78); Albumin Level 4.3 g/dl (3.5-5.0); Albumin/Globulin Ratio 1.1 (1.1-1.8); Alkaline Phosphatase 60 U/L (38-126); Anion Gap 15.5 mEq/L (5-15); Aspartate Amino Transferase 52 U/L (17-59); Bilirubin,Total 1.3 mg/dl (0.2-1.3); Calcium 9.7 mg/dl (8.4-10.2); Carbon Dioxide 24 mmol/L (22.0-30.0); Globulin 3.8 g/dL (1.3-3.2); Glucose 104 mg/dl (74-100); Magnesium 1.9 mg/dl (1.6-2.3); Total Protein,Serum 8.1 g/dl (6.3-8.2)
--- NOTE | 2023-05-31 13:56 | HMH.EDGENADL ---
Discharge Plan Disposition Chief Complaint: Fall Prescriptions Prescriptions: No Action levothyroxine 75 MCG tablet 75 mcg PO Q48H tamsulosin 0.4 MG capsule 0.4 mg PO DAILY apixaban 5 MG tablet 5 mg PO BID carvedilol 3.125 MG tablet 3.125 mg PO BID aspirin 81 mg Capsule 81 mg PO DAILY furosemide 40 mg tablet 40 mg PO DAILY Patient Comments: TAKE 1 TABLET BY MOUTH IN THE MORNING AND 1/2 (ONE-HALF) IN THE EVENING levothyroxine 75 mcg tablet 37.5 mcg PO Q48H Patient Comments: TAKE 1 TABLET BY MOUTH ONCE DAILY ALTERNATING WITH 1/2 TABLET EVERY OTHER DAY omeprazole 20 mg capsule,delayed release(DR/EC) 20 mg PO DAILY Patient Comments: TAKE 1 CAPSULE BY MOUTH 30 MINUTES BEFORE BREAKFAST ONCE DAILY Vitamin 27 mg iron- 800 mcg tablet 1 tab PO DAILY ropinirole [Requip] 0.5 mg Tablet 0.5 mg PO HS Rx Instructions: administer 1-3 hours before bedtime memantine [Namenda XR] 7 mg Capsule,Sprinkle,Er 24hr 7 mg PO DAILY Referrals Follow up/Referrals: Get Garza MD [Primary Care Provider] - See instructions Clinical Impressions Clinical Impression: General weakness, C5 cervical fracture, Falls frequently, ALIREZA (acute kidney injury) Discharge ED Provider: Yrn Beasley General Adult HPI General Chief complaint: Fall Stated complaint: AO 05/31/23 1200 Time Seen by Provider: 05/31/23 13:11 Mode of Arrival: Wheelchair Source of Information: Patient and Spouse Limitations: No Limitations Description of Symptoms (Recalled from ER Triage Doc. by RN): Reports frquent falls since his discharge from yesterday. states that they just are not able to take care of him at home. History of Present Illness HPI narrative: This patient is an 87-year-old male who I evaluated here in the emergency department yesterday presenting again for generalized weakness and frequent falls. According to the patient's and granddaughter, we transferred the patient to yesterday for evaluation of an acute C5 fracture. They discharged the patient home with instructions to wear c-collar at all times. Since going home, the patient has had multiple episodes where his legs give out from underneath him and he has to be lowered to the ground. He still wants to get up and go and is still ambulatory, however he is a significant fall risk at home and they are having concerns about not being able to care for him. He has previously been admitted for rehabilitation in the past and they would be amenable to this again. No other concerns noted, such as new pains, new traumatic injuries, fevers, or other concerns. Related Data Home Medications Medication Instructions Recorded Confirmed levothyroxine 75 mcg tablet 75 mcg PO Q48H thyroid 01/02/19 04/16/23 tamsulosin 0.4 mg capsule 0.4 mg PO DAILY prostate 10/01/21 04/16/23 apixaban 5 mg tablet 5 mg PO BID Blood Thinner/afib 10/02/21 04/16/23 carvedilol 3.125 mg tablet 3.125 mg PO BID High Blood Pressure 10/02/21 04/16/23 aspirin 81 mg capsule 81 mg PO DAILY heart health 02/04/23 04/16/23 furosemide 40 mg tablet 40 mg PO DAILY Fluid 02/04/23 04/16/23 levothyroxine 75 mcg tablet 37.5 mcg PO Q48H Thyroid 02/04/23 04/16/23 omeprazole 20 mg capsule,delayed 20 mg PO DAILY Acid Reflux 02/04/23 04/16/23 release memantine 7 mg capsule 7 mg PO DAILY memory 03/02/23 04/16/23 sprinkle,extended release 24hr (Namenda XR) vits no.130-ferrous fum 1 tab PO DAILY Supplement 03/02/23 04/16/23 27 mg iron-folic acid 800 mcg tablet ( Vitamin) ropinirole 0.5 mg tablet 0.5 mg PO HS rls 03/02/23 04/16/23 Allergies Allergy/AdvReac Type Severity Reaction Status Date / Time clindamycin Allergy Verified 04/16/23 09:30 daptomycin Allergy Verified 04/16/23 09:30 [facility] Disclaimer: The information contained in this section may have been updated after the patient was seen, as this inform
[2023-05-31 14:51] LABS: Basophils % 0.3 % (0.1-2.0); Eosinophils % 0.3 % (0.1-12.0); Hematocrit 39.8 % (42.0-52.0); Hemoglobin 13.3 g/dL (14.1-18.0); Lymphocytes # 1.8 K/mm3 (0.7-4.5); Lymphocytes % 16.8 % (10-50); Mean Corpuscular HGB Conc 33.6 g/dL (31.8-35.4); Mean Corpuscular Hemoglobin 36.6 pg (27.0-31.2); Mean Corpuscular Volume 108.9 fl (80-94); Mean Platelet Volume 9.2 fl (7.4-10.4); Monocytes # 0.9 K/mm3 (0.1-1.0); Monocytes % 8.7 % (1.7-9.3); Neutrophils # 7.7 K/mm3 (1.8-7.8); Neutrophils % 73.9 % (37.0-80.0); Platelet Count 300 K/mm3 (142-424); Red Blood Count 3.65 M/mm3 (4.60-6.20); White Blood Count 10.5 K/mm3 (4.8-10.8)
--- NOTE | 2023-05-31 15:08 | PC.NURSE ---
Pt brief changed due to urinary incontinence. Pt also provided with water and assisted to drink. Pt does not want anything to eat at this time. Call light remains within reach.
[2023-05-31 15:09] LABS: Microscopic, Urine URINE MICROSCOPIC (MICROSCOPIC)
[2023-05-31 15:12] LABS: Appearance,Urine CLEAR (Clear); Bilirubin,Urine Negative (Negative); Blood, Urine Negative (Negative); Color,Urine YELLOW (Yellow); Glucose,Urine (UA) Negative (Negative); Ketones,Urine Negative (Negative); Leukocyte Esterase,Urine Negative (Negative); Nitrate,Urine Negative (Negative); Protein,Urine TRACE (Negative); Specific Gravity, Urine 1.025 (1.005-1.030)
--- NOTE | 2023-05-31 15:17 | PC.NURSE ---
Dr. Mancilla at BS for pt eval
[2023-05-31 15:27] LABS: Bacteria,Urine Trace /lpf; Squamous Epithelial Cell,Urine Occasional #/hpf (0-5)
--- NOTE | 2023-05-31 15:36 | EXP.HP ---
History of Present Illness *Admission Date: 05/31/23 *Reason for visit:: falling, neck pain *History of present illness: Mr. Abernathy is an 87-year-old male who has had increased frequency of falling over the past several weeks. Developed neck pain yesterday and was brought to the ER. Found to have a cervical fracture (C5). Was transferred to for evaluation by trauma. Was placed in a c-collar and discharged home. Patient has unfortunately continued to have falling episodes and is unable to be cared for at home by his family at this time. He reports decreased p.o. intake. Having some intermittent neck pain. Was recommended to wear c-collar at all times since going home from the ER yesterday. On arrival to the ER today, workup concerning for ALIREZA and mild dehydration. ER requested admission for further management. In discussion with family, since going home, the patient has had multiple episodes where his legs give out from underneath him and he has to be lowered to the ground. He still wants to get up and go and is still ambulatory, however he is a significant fall risk at home and they are having concerns about not being able to care for him. He has previously been admitted for rehabilitation in the past and they would be amenable to this again. Denies fever, chest pain, shortness of breath. [facility] Disclaimer: The information contained in this section may have been updated after the patient was seen, as this information can be updated by other users. Medical History HLD (hyperlipidemia) Hypertension Hypothyroid Pneumonia RLS (restless legs syndrome) Surgical History H/O heart artery stent Previous back surgery Family History Unknown family medical history Social History Smoking Status: Never smoker alcohol intake: never current occupational status: retired Travel in the last 8 weeks: Inside the [place] household members: spouse housing: house current occupational exposures/hazards: No caffeine: No Review of Systems Review of Systems Review of systems (narrative): 14 point review of systems performed, pertinent positives and negatives as per HPI Meds Home Medications and Allergies Home Medications Medication Instructions Recorded Confirmed Type levothyroxine 75 mcg tablet 75 mcg PO Q48H thyroid 01/02/19 05/31/23 History tamsulosin 0.4 mg capsule 0.4 mg PO DAILY prostate 10/01/21 05/31/23 History apixaban 5 mg tablet 5 mg PO BID Blood Thinner/afib 10/02/21 05/31/23 History carvedilol 3.125 mg tablet 3.125 mg PO BID High Blood Pressure 10/02/21 05/31/23 History aspirin 81 mg capsule 81 mg PO DAILY heart health 02/04/23 05/31/23 History furosemide 40 mg tablet 40 mg PO DAILY Fluid 02/04/23 05/31/23 History levothyroxine 75 mcg tablet 37.5 mcg PO Q48H Thyroid 02/04/23 05/31/23 History omeprazole 20 mg capsule,delayed 20 mg PO DAILY Acid Reflux 02/04/23 05/31/23 History release vits no.130-ferrous fum 1 tab PO DAILY Supplement 03/02/23 05/31/23 History 27 mg iron-folic acid 800 mcg tablet ( Vitamin) ropinirole 0.5 mg tablet 0.5 mg PO HS rls 03/02/23 05/31/23 History megestrol 400 mg/10 mL (40 mg/mL) 400 mg PO DAILY 05/31/23 05/31/23 History oral suspension memantine 14 mg capsule 14 mg PO DAILY MEMORY 05/31/23 05/31/23 History sprinkle,extended release 24hr New Prescriptions to Start Prescriptions: Allergies Allergy/AdvReac Type Severity Reaction Status Date / Time clindamycin Allergy Verified 04/16/23 09:30 daptomycin Allergy Verified 04/16/23 09:30 Exam Data for Last 24 hours Vital signs and Labs for Last 24 Hours: Temp Pulse Resp BP Pulse Ox O2 Del Method 98.0 F 99 H 20 149/64 H 98 Room Air 05/31/23 13:07
--- NOTE | 2023-05-31 15:46 | PC.NURSE ---
[facility]ER NOTIFIED OF ADMISSION
--- NOTE | 2023-05-31 16:17 | PC.NURSE ---
PT GOING UP FOR ADMISSION
--- NOTE | 2023-05-31 16:25 | PC.NURSE ---
arrived by w/c from ED
[2023-06-01 04:00] VITALS: BP 100/71; PULSE 101; RESP 18; TEMP 37.7; O2SAT 96; BMI 18.6
[2023-06-01 07:09] LABS: Chloride 104 mmol/L (98-107)
[2023-06-01 07:10] LABS: Potassium 3.9 mmoL/L (3.5-5.1); Sodium 134 mmol/L (136-145)
[2023-06-01 07:12] LABS: Alanine Aminotransferase 28 U/L (12-78); Aspartate Amino Transferase 54 U/L (17-59); Blood Urea Nitrogen 23 mg/dl (9-20); Creatinine Clearance Estimated 47 mL/min (50-200); Estimated Glomerular Filt Rate 80 ml/min (>60); GFR (African American) 97 ML/MIN (>60)
[2023-06-01 07:13] LABS: Albumin Level 3.4 g/dl (3.5-5.0); Albumin/Globulin Ratio 1.1 (1.1-1.8); Alkaline Phosphatase 50 U/L (38-126); Anion Gap 10.9 mEq/L (5-15); Bilirubin,Total 1.4 mg/dl (0.2-1.3); Carbon Dioxide 23 mmol/L (22.0-30.0); Globulin 3.2 g/dL (1.3-3.2); Glucose 89 mg/dl (74-100); Magnesium 1.8 mg/dl (1.6-2.3); Total Protein,Serum 6.6 g/dl (6.3-8.2)
[2023-06-01 07:42] LABS: Basophils % 0.4 % (0.1-2.0); Eosinophils % 0.4 % (0.1-12.0); Hematocrit 33.3 % (42.0-52.0); Lymphocytes # 1.9 K/mm3 (0.7-4.5); Lymphocytes % 27.4 % (10-50); Mean Corpuscular HGB Conc 34.7 g/dL (31.8-35.4); Mean Corpuscular Hemoglobin 37.5 pg (27.0-31.2); Mean Corpuscular Volume 108.2 fl (80-94); Mean Platelet Volume 8.3 fl (7.4-10.4); Monocytes # 0.6 K/mm3 (0.1-1.0); Neutrophils # 4.5 K/mm3 (1.8-7.8); Neutrophils % 63.7 % (37.0-80.0); Platelet Count 249 K/mm3 (142-424); Red Blood Count 3.08 M/mm3 (4.60-6.20); Red Cell Distribution Width 15.9 % (11.5-17.5)
[2023-06-01 08:00] VITALS: BP 141/77; PULSE 99; RESP 17; TEMP 36.5; O2SAT 97
--- NOTE | 2023-06-01 08:20 | HMH.PHAINT1 ---
Pharmacy Intervention Comments: CLARIFIED HOME MEDICATION LIST USING LIST FROM DR RAMIREZ'S OFFICE AND OUTPATIENT PHARMACY LIST
[2023-06-01 08:22] LABS: Hemoglobin 11.6 g/dL (14.1-18.0)
--- OUTSIDE RECORDS SUMMARY | 2023-06-01 08:23 | XMS_ITS | Clinical Summary ---
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
[2023-06-01 09:00] VITALS: PULSE 99; O2SAT 97
--- NOTE | 2023-06-01 09:58 | SW/DCPLANNER ---
Addendum entered by Dana Croft 06/01/23 14:52: Marce w/ [facility] stated that services will begin this week for this patient. Addendum entered by Dana Croft 06/01/23 13:22: Patient/family have decided to discharge home w/ home health services, DME including hospital bed/bedside commode/wheelchair, and private sitter's list. Patient/family prefer to use [facility]. Patient information/order will be faxed today. The plan is for this patient to discharge this afternoon. Patient/family are agreeable for DME to be set up through [facility]. Original Note: I spoke w/ patient, and daughter this AM regarding plans once medically stable for discharge. PT/OT evaluated patient and recommended SNF level of care. Patient and family are agreeable to placement at [facility]: pending rest of family is agreeable. I will follow up w/ patient and family this AM regarding [facility] this AM after they have to speak w/ other family members.
--- NOTE | 2023-06-01 10:05 | HMH.OTEV ---
OT Inpatient Evaluation Rehab OT IP Evaluation Start: 05/31/23 15:35 Freq: ONCE Status: Active Protocol: Document 06/01/23 09:55 [facility] (Rec: 06/01/23 10:05 [facility] [id number]) Rehab OT IP Assessment Subjective History Pt oriented to person, but not to birthdate or place. Pt's and daughter present during therapy evaluation. Pt agreeable to engage in therapy evaluation. Pt admitted on 05/31/23 due to fall with neck pain. Mr. Abernathy is an 87-year-old male who has had increased frequency of falling over the past several weeks. Developed neck pain yesterday and was brought to the ER. Found to have a cervical fracture (C5). Was transferred to for evaluation by trauma. Was placed in a c-collar and discharged home. Patient has unfortunately continued to have falling episodes and is unable to be cared for at home by his family at this time. He reports decreased p.o. intake. Having some intermittent neck pain. Was recommended to wear c-collar at all times since going home from the ER yesterday. Prior to being in the hospital , pt lived at home with his . reports he is normally able to dress himself with set up of task. also reports she does assist with his baths. Pt is dependent upon for completion of all IADLs. Pt does use a rolling walker during funtional transfers. Subjective I am sore. Objective Patient Orientation Person Right Upper Extremity Gross ROM WFL Left Upper Extremity Gross ROM WFL Bed Mobility bed mobility-scooting,bed mobility - supine/sit Assist Level Minimal x 1 (25% assist) Transfer Arturo
[2023-06-01 11:27] VITALS: BMI 18.6
--- NOTE | 2023-06-01 11:45 | HMH.PTEV ---
Physical Therapy Evaluation Rehab PT IP Evaluation Start: 05/31/23 15:35 Freq: ONCE Status: Active Protocol: Document 06/01/23 11:33 ZULMAKacie (Rec: 06/01/23 11:45 LUZ [id number]) Subjective/History History History Pt is an 87 y/o male who presented to [facility] on 05/31/23 with increased frequency of falling over the past several weeks. Per history & physical note, pt developed neck pain yesterday and was brought to the ER. Found to have a cervical fracture (C5). Was transferred to for evaluation by trauma. Was placed in a c-collar and discharged home. Patient has unfortunately continued to have falling episodes and is unable to be cared for at home by his family at this time. He reports decreased p.o. intake. Having some intermittent neck pain. Was recommended to wear c-collar at all times since going home from the ER yesterday. On arrival to the ER today, workup concerning for ALIREZA and mild dehydration. ER requested admission for further management. In discussion with family, since going home, the patient has had multiple episodes where his legs give out from underneath him and he has to be lowered to the ground. He still wants to get up and go and is still ambulatory, however he is a significant fall risk at home and they are having concerns about not being able to care for him. He has previously been admitted for rehabilitation in the past and they would be amenable to this again. Denies fever, chest pain, shortness of breath. M
--- NOTE | 2023-06-01 13:27 | EXP.DC.SUM ---
General Admission date:: 05/31/23 Discharge date: 06/01/23 HPI HPI HPI: Mr. Abernathy is an 87-year-old male who has had increased frequency of falling over the past several weeks. Developed neck pain yesterday and was brought to the ER. Found to have a cervical fracture (C5). Was transferred to for evaluation by trauma. Was placed in a c-collar and discharged home. Patient has unfortunately continued to have falling episodes and is unable to be cared for at home by his family at this time. He reports decreased p.o. intake. Having some intermittent neck pain. Was recommended to wear c-collar at all times since going home from the ER yesterday. On arrival to the ER today, workup concerning for ALIREZA and mild dehydration. ER requested admission for further management. In discussion with family, since going home, the patient has had multiple episodes where his legs give out from underneath him and he has to be lowered to the ground. He still wants to get up and go and is still ambulatory, however he is a significant fall risk at home and they are having concerns about not being able to care for him. He has previously been admitted for rehabilitation in the past and they would be amenable to this again. Denies fever, chest pain, shortness of breath. Hospital Course Hospital Course Hospital Course: 87-year-old male with progressive weakness, #8, heart for a year, paroxysmal A-fib. Has been falling more frequently due to worsening weakness over the past month. Found to have a C5 fracture and ALIREZA. Discussed case with ER, request admission for therapy eval and possible placement along with treatment for ALIREZA. Medicine agreed to admit for further management. Necessitating inpatient management for IV fluids, pain medication, and stabilization of C5 fracture. Patient did well during admission. After much discussion with family, decision was made to take patient home with home health and necessary DME rather than placement in halfway facility for rehab. Case management assisted with support. problems addressed as follows: C5 fracture Frequent falls and weakness -Continue c-collar while up out of bed. Reviewed patient's chart from . Neurosurgery consult specifically states that patient is advised to keep collar on at all times if possible but may remove collar for hygiene, showers, meals, bedtime. Advised to keep collar on when out of bed, mobilizing or upright. Patient continues to be weak, PT and OT evaluated patient. Recommended rehab placement. Strong concern about patient's safety to go home with his recurring falls. After significant discussion with family, decision made by family to take patient home with home health, DME including wheelchair, hospital bed, bedside commode. Family's concerns are that patient is restless and tries to get up on his own. They expressed there would be a need for 24-hour sitter even in the residential setting. They felt he would be better served at home given this predicament. Patient discharged in stable condition to home. ALIREZA - Creatinine 1.3, BUN 36 On the mission. Improved to 0.9 by the following morning (day of discharge), Creatinine 0.9, BUN 23. Tolerating p.o. fluids. Recommend repeat labs when follows up with PCP to monitor for stability of creatinine. Chronic conditions: Transitioned to metoprolol 25 mg twice daily for paroxysmal A-fib and blood pressure as his blood pressure was a little soft on carvedilol and heart rate still elevated 90-110. Continue Eliquis 5 mg twice daily Continue PPI with formulary conversion to Protonix for GERD 40 mg nightly Continue ropinirole 0.5 mg nightly for RLS Continue tamsulosin 0.4 mg daily for BPH Continue levothyroxine 75 mcg daily for hypothyroid Stable for discharge home. Spent 30 minutes in discharge counseling, documentation, discussion with PT/OT/Case management, and direct care with patient. Exam Data for Last 24 hours Vital signs and
--- NOTE | 2023-06-01 13:36 | CARE MANAGER ---
Patient has a cervical fracture which requires positioning of the body in ways not feasible with an ordinary bed and also needs a hospital bed in order to help alleviate pain. Patient is unable to to support self with walker and will require the use of wheelchair for mobility and transfers. SHERRELL Murillo
--- NOTE | 2023-06-01 13:42 | CARE MANAGER ---
Patient will require hospital bed, wheelchair, and BSC. Requested laurence and information sent. SHERRELL Murillo
--- NOTE | 2023-06-01 13:59 | P.CONPHA_ITS ---
Pharmacy Intervention Comments: DISCHARGE MEDICATION COUNSELING PROVIDED TO PATIENT'S AND DAUGHTER. DISCUSSED STOPPING THE CARVEDILOL AND STARTING METOPROLOL (BETA ASHISH, TWICE DAILY, DIZZINESS, LIGHTHEADEDNESS, SOB, FATIGUE POSSIBLE) AND MAGNESIUM OXIDE (DAILY, TAKE WITH FOOD, NAUSEA, DIARRHEA POSSIBLE. PATIENT'S REQUESTED MEDICATIONS BE SENT TO [facility] HERE IN [facility], I RELAYED THIS REQUEST TO DR GUARDADO.
--- NOTE | 2023-06-02 14:18 | CARE MANAGER ---
Contacted patient's related to hospital stay. She states he is weak and she is unsure if he can go to PCP tomorrow, but is waiting to talk to her son. She questioned if urine cultures were back. Cultures not seen in chart. She did picker meds denies questions or concerns. SHERRELL Murillo
== END 2023-06-01 16:07 | disposition home health service (06) | DRG 682 ==
LOC: ER 15:17 → 2ND 15:51
PROVIDERS: Emergency Medicine; Admitting Provider Internal Medicine Adolescent Medicine; Emergency Provider Emergency Medicine; PCP Internal Medicine Adolescent Medicine; Visit Provider Internal Medicine Adolescent Medicine
DX: N17.9 Acute kidney failure, unspecified (principal); E43 Unspecified severe protein-calorie malnutrition; S12.401A Unspecified nondisplaced fracture of fifth cervical vertebra, initial encounter for closed fracture; I50.32 Chronic diastolic (congestive) heart failure; Z68.1 Body mass index [BMI] 19.9 or less, adult; S12.400A Unspecified displaced fracture of fifth cervical vertebra, initial encounter for closed fracture; R29.6 Repeated falls; R53.1 Weakness; N40.1 Benign prostatic hyperplasia with lower urinary tract symptoms; R33.8 Other retention of urine; K21.9 Gastro-esophageal reflux disease without esophagitis; I48.0 Paroxysmal atrial fibrillation; E78.5 Hyperlipidemia, unspecified; Z95.5 Presence of coronary angioplasty implant and graft; I11.0 Hypertensive heart disease with heart failure
CPT/HCPCS: 70450; 70496; 70498; 71045; 71275; 72125; 72128; 72131; 72170; 74174; 80053; 81001; 83735; 84100; 84436; 84443; 85007; 85025; 85610; 93005; 97162; 97166; 97530; 97535; 99285; J2405; Q9967